=== PATIENT | male | born 1955 | race African-American/Black ===

== ENCOUNTER 2017-06-03 06:26 | Day surgery (SDC) | payer MEDICARE, OTHER ==
--- NOTE | 2017-06-02 09:32 | Opthalmology H&P ---
Ophthalmology H&P H&P Chief Complaint: decreased vision in right eye HPI Vision Affects Ability to: read, drive Past Ocular History: previous eye injury, glaucoma HPI Narrative The patient is 61 y/o with HTN, DM, CHF, Gout, Obesity and PEPE who has blurred vision in the right eye. He also has uncontrolled glaucoma due to narrow angle. He has history of trauma to the right eye which caused orbital fracture and skin laceration. Exam Visual Acuity: 20/30 BAT to 20/50 Eye Exam: normal OU: corneas, external exam, findings: anterior chambers - shallow, fundus exam - 0.4 C/D, dull foveal reflex, MAs, lens - 3+ CC, 1+ NSC Assessment/Plan Treatment Plan: cataract extraction w/ lens implant - and LRI Goals of Treatment: improvement of vision, lowering of intraocular pressure Attestation Attestation The risks and benefits of the surgery as well as alternative procedures were explained to the patient in detail. Kelly Brooks M.D. Jun 02, 2017 09:32
--- NOTE | 2017-06-02 09:37 | Pre-Procedure Note/Attestation ---
Pre-Procedure Note/Attestation Complete Prior to Procedure Planned Procedure: right Procedure Narrative: Cataract Extraction, Intra-ocular lens placement and LRI right eye Indications for Procedure Pre-Operative Diagnosis: Visually significant cataract, angle closure glaucoma, right eye Attestation I attest that I discussed the nature of the procedure; its benefits; risks and complications; and alternatives (and the risks and benefits of such alternatives ), prior to the procedure, with the patient (or the patient's legal labor service representative). I attest that, if there was a reasonable possibility of needing a blood transfusion, the patient (or the patient's legal labor service representative) was given the [facility] standardized written summary, pursuant to the Jose R [place] Blood Safety Act ([place] Health and Safety Code # 1645, as amended). I attest that I re-evaluated the patient just prior to the surgery and that there has been no change in the patient's H&P, except as documented below: The patient has had history of trauma to the right eye, there are risk of having zonulysis and capsular rupture during the procedure. The patient is obese and has CHF and obstructive sleep apnea which makes the positioning of the head difficult during the surgery, also positive vitreous pressure increases the risk of capsular bag rupture during the surgery. Kelly Brooks M.D. Jun 02, 2017 09:37
[2017-06-03] VITALS (10 sets, daily range): BP systolic 138–184; BP diastolic 77–105
[~2017-06-03] VITALS: Ht 170.2 cm; Wt 117.9 kg
[~2017-06-03 06:26] MED LIST: ALLOPURINOL300 M1 ORAL; AMLODIPINE BESY10 MG PO; APRESOLINE50 MG ORAL; ASPIRIN81 MG ORAL; ATORVASTATIN CA20 MG ORAL; AUGMENTIN 500-1 EACH ORAL; CARVEDILOL12.5 MG ORAL; CYCLOBENZAPRINE10 MG ORAL; DIOVAN160 MG PO; DOC-Q-LACE100 M1 ORAL; FERROUS SULFAT325 MG ORAL; FUROSEMIDE80 M1 ORAL; GLIPIZIDE5 MG ORAL; GLUCOTROL10 MG ORAL; HYDRALAZINE HC100 MG ORAL; HYDROCHLOROTH12.5 M2 ORAL; IBUPROFEN400 MG ORAL; IBUPROFEN600 MG PO; INDOMETHACIN75 MG ORAL; LASIX40 MG ORAL; LATANOPROST2.5 ML; LEVEMIR FL100 UNIT/1 SUBQ; LIPITOR40 MG ORAL; LOPRESSOR25 M1 ORAL; LOSARTAN POTAS100 MG ORAL; LOTENSIN20 MG ORAL; METOPROLOL SUC100 MG ORAL; METOPROLOL TAR100 M1 ORAL; METOPROLOL TART25 MG ORAL; NORCO 5-325 TA1 EACH ORAL; OMEPRAZOLE20 M3 ORAL; POTASSIUM CHLO20 ME3 PO; TIMOPTIC 0.5%1 DRO1 BOTH EYES; TRADJENTA5 MG PO; VICTOZA 2-0.6 MG/0.1 SUBQ; VITAMIN D400 INTLU ORAL; ZYLOPRIM100 MG ORAL; ZYRTEC10 MG ORAL; acetaZOLAMIDE 125mg tab ORAL ONE
[2017-06-03] MEDS ORDERED: Phenylephrine 10% Opth Soln 5ml ONE (06:50)
[2017-06-03] MEDS ORDERED: Diclofenac Sod 0.1% Op Soln ONE (06:50)
[2017-06-03] MEDS ORDERED: Vigamox Opth Soln ONE (06:50)
[2017-06-03] MEDS ORDERED: Tropicamide 1% Opth Soln ONE (06:51)
[2017-06-03] MEDS ORDERED: Akten 3.5% 1ml Btl ONE (06:51)
[2017-06-03] MEDS: Vigamox Opth Soln RIGHT EYE SCH ×3 (06:57→07:18)
[2017-06-03] MEDS: Tropicamide 1% Opth Soln RIGHT EYE SCH ×3 (06:57→07:18)
[2017-06-03] MEDS: Akten 3.5% 1ml Btl RIGHT EYE SCH ×3 (06:58→07:18)
[2017-06-03] MEDS: Phenylephrine 10% Opth Soln 5ml RIGHT EYE SCH ×3 (06:58→07:18)
[2017-06-03] MEDS: Diclofenac Sod 0.1% Op Soln RIGHT EYE SCH ×3 (06:58→07:18)
[2017-06-03] MEDS ORDERED: BSS 500ml btl ONE (07:04)
[2017-06-03] MEDS ORDERED: Lidocaine 1% MPF 10mg/ml 5ml ONE (07:05)
[2017-06-03] MEDS ORDERED: Maxitrol Opth Oint 3.5gm ONE (07:05)
[2017-06-03] MEDS ORDERED: Tetracaine 0.5% Opth Soln ONE (07:05)
[2017-06-03] MEDS ORDERED: Dexamethasone 4mg/ml vial ONE (07:05)
[2017-06-03] MEDS ORDERED: Lidocaine 2% 20mg/ml/Epi 0.005mg/ml 20ml vial ONE (07:05)
[2017-06-03] MEDS ORDERED: EPINEPHrine 1mg/1ml Amp ONE (07:06)
[2017-06-03] MEDS ORDERED: Lidocaine 4% Amp ONE (07:06)
[2017-06-03] MEDS ORDERED: Carbachol 0.01% Op Soln 1.5ml vial ONE (07:06)
[2017-06-03] MEDS ORDERED: Povidone-Iodine 5% opth solution ONE (07:06)
[2017-06-03] MEDS ORDERED: Bupivacaine 0.75% 30ml vial INJ ONE (07:07)
[2017-06-03] MEDS ORDERED: BSS 15ml BTL ONE (07:07)
[2017-06-03] MEDS ORDERED: Healon Duet Dual Pack ONE (07:07)
[2017-06-03] MEDS ORDERED: Lidocaine 1% 10mg/ml/Epi 0.005mg/ml 30ml vial INJ ONE (07:07)
[2017-06-03 07:12] LABS: BASOPHILS % (AUTO) 1.4 % (0.0-2.0); LYMPHOCYTES % (AUTO) 23.3 % (20.0-45.0); MEAN CORPUSCULAR HEMOGLOBIN 26.3 PG (27.0-31.0); MEAN CORPUSCULAR HGB CONC 30.7 G/DL (32.0-36.0); MEAN CORPUSCULAR VOLUME 86 FL (80-99); MONOCYTES % (AUTO) 13.4 % (1.0-10.0); PLATELET COUNT 166 K/UL (150-450); RED BLOOD COUNT 4.42 M/UL (4.70-6.10); RED CELL DISTRIBUTION WIDTH 15.3 % (11.6-14.8); WHITE BLOOD COUNT 5.4 K/UL (4.8-10.8)
[2017-06-03 07:26] LABS: CALCIUM 8.8 mg/dL (8.6-10.2); CREATININE 2.8 mg/dL (0.7-1.2); GLOMERULAR FILTRATION RATE 28.2 mL/min (>60)
[2017-06-03] MEDS ORDERED: Alfentanil 2ml Inj ONE (08:00)
[2017-06-03] MEDS ORDERED: Sterile Water Irrig 1000ml IRRIG ONE (08:00)
[2017-06-03] MEDS ORDERED: NS Irrig 1000ml ONE (08:00)
[2017-06-03] MEDS ORDERED: LR 1000ml ONE (08:00)
[2017-06-03] MEDS ORDERED: Midazolam 2mg/2ml Inj ONE (08:00)
[2017-06-03] MEDS ORDERED: Sodium Hyaluronate 14 mg/ml 0.85ml ONE (08:17)
--- NOTE | 2017-06-03 08:53 | Anethesia Preoperative Eval ---
Anesthesia Pre-op PMH/ROS General Date of Evaluation: Jun 03, 2017 Time of Evaluation: 08:10 Anesthesiologist: Gerry ASA Score: ASA 3 Mallampati Score Class I : Soft palate, uvula, fauces, pillars visible Class II: Soft palate, uvula, fauces visible Class III: Soft palate, base of uvula visible Class IV: Only hard plate visible Mallampati Classification: Class III Surgeon: Cecilia Diagnosis: Cataract right eye Surgical Procedure: Extraction of cataract with IOL Family History: no anesthesia problems Allergies: Coded Allergies: No Known Allergies (Verified , 01/17/12) Medications: see eMAR Past Medical History Cardiovascular: Reports: CAD, HTN, other - CHF, Denies: ND, arrhythmia, valve dz Pulmonary: Reports: COPD, Denies: PEPE, asthma, other Gastrointestinal/Genitourinary: Reports: CRI, GERD, Denies: ESRD, other Neurologic/Psychiatric: Denies: CVA, TIA, dementia, depression/anxiety, other Endocrine: Reports: DM, Denies: hypothyroidism, other, steroids HEENT: Reports: cataract (L), cataract (R) Musculoskeletal/Integumentary: Reports: OA Other: obesity PMH Narrative: HTN, DM, COPD, GERD, CHF,OA, obesity, CRI PSxH Narrative: Right TKR, let knee scope, childhood kidney surgery, eye lid surgery Anesthesia Pre-op Phys. Exam Physician Exam Last Vital Signs Date Time Temp Pulse Resp B/P Pulse Ox O2 Delivery O2 Flow Rate FiO2 06/03/17 07:09 98.1 82 18 152/80 97 Room Air Constitutional: NAD Neurologic: CN 2-12 intact Cardiovascular: RRR, no M/R/G Respiratory: CTA Gastrointestinal: S/NT/ND Airway Exam Mallampati Score: Class III MO: limited ROM: limited Teeth: intact Anesthesia Pre-op A/P Labs Hematology Test 06/03/17 07:00 White Blood Count 5.4 K/UL (4.8-10.8) Red Blood Count 4.42 M/UL (4.70-6.10) L Hemoglobin 11.6 G/DL (14.2-18.0) L Hematocrit 37.9 % (42.0-52.0) L Mean Corpuscular Volume 86 FL (80-99) Mean Corpuscular Hemoglobin 26.3 PG (27.0-31.0) L Mean Corpuscular Hemoglobin Concent 30.7 G/DL (32.0-36.0) L Red Cell Distribution Width 15.3 % (11.6-14.8) H Platelet Count 166 K/UL (150-450) Mean Platelet Volume 10.0 FL (6.5-10.1) Neutrophils (%) (Auto) 57.0 % (45.0-75.0) Lymphocytes (%) (Auto) 23.3 % (20.0-45.0) Monocytes (%) (Auto) 13.4 % (1.0-10.0) H Eosinophils (%) (Auto) 5.0 % (0.0-3.0) H Basophils (%) (Auto) 1.4 % (0.0-2.0) Chemistry Test 06/03/17 07:00 Sodium Level 142 mEQ/L (135-145) Potassium Level 4.0 mEQ/L (3.4-4.9) Chloride Level 102 mEQ/L (98-107) Carbon Dioxide Level 28 mEQ/L (20-30) Anion Gap 12 (5-15) Blood Urea Nitrogen 28 mg/dL (7-23) H Creatinine 2.8 mg/dL (0.7-1.2) H Estimat Glomerular Filtration Rate 28.2 mL/min (>60) Glucose Level 163 mg/dL (74-106) H Calcium Level 8.8 mg/dL (8.6-10.2) Studies Pre-op Studies: EKG - SR, LAHB, questionable lateral ischemia, echo - Nl LV wall motion, EF = 60% Risk Assessment & Plan Assessment: Class 3 male for cataract surgery Plan: MAC, TIVA Status Change Before Surgery: No Pre-Antibiotics Drug: None ABDIRAHMAN OROZCO M.D. Jun 03, 2017 08:53
[2017-06-03] MEDS ORDERED: LR 1000ml 1,000 ML IVLG SCH (08:54)
--- NOTE | 2017-06-03 08:54 | Immediate Post-Op Evaluation ---
Immediate Post-Op Evalulation Immediate Post-Op Evalulation Procedure: Extraction of cataract with IOL right eye Date of Evaluation: Jun 03, 2017 Time of Evaluation: 09:27 IV Fluids: 625 Blood Pressure Systolic: 168 Blood Pressure Diastolic: 94 Pulse Rate: 77 Respiratory Rate: 20 O2 Sat by Pulse Oximetry: 98 Temperature (Fahrenheit): 97.3 Pain Score (1-10): 0 Nausea: No Vomiting: No Complications No complication Patient Status: awake, patent, none Hydration Status: adequate Drug: None ABDIRAHMAN OROZCO M.D. Jun 03, 2017 08:54
[2017-06-03] MEDS ORDERED: fentaNYL 100 mcg/2 mL IV PRN (09:00)
[2017-06-03] MEDS ORDERED: Sodium Hyaluronate 10 mg/ml 0.85ml ONE (09:01)
--- NOTE | 2017-06-03 09:22 | 48 Hour Post Anesthesia Eval ---
Post Anesthesia Evaluation Procedure: Extraction of cataract with IOL right eye Date of Evaluation: Jun 03, 2017 Time of Evaluation: 09:55 Blood Pressure Systolic: 167 0: 98 Pulse Rate: 77 Respiratory Rate: 18 O2 Sat by Pulse Oximetry: 97 Airway: patent Nausea: No Vomiting: No Pain Intensity: 0 Hydration Status: adequate Cardiopulmonary Status: Stable Mental Status/LOC: patient returned to baseline Follow-up Care/Observations: As per surgery Post-Anesthesia Complications: No anesthetic complication Follow-up care needed: N/A ABDIRAHMAN OROZCO M.D. Jun 03, 2017 09:22
--- NOTE | 2017-06-03 09:23 | Discharge Summary ---
Discharge Summary Hospital Course Date of Admission 06/03/17 Date of Discharge 06/03/17 Admitting Diagnosis Visually significant cataract, right eye Angle closure right eye HPI Nasir Villa is a 61 year old male who was admitted on for Cat Rt Eye. He has angle closure glaucoma in the right eye. Procedures Complex Cataract extraction and intra-ocular lens placement, right eye Hospital Course uneventful Discharge Condition Upon Discharge: stable Discharge Disposition Patient was discharged to home with the family. Discharge Diagnoses: Discharge Instructions Discharge Instructions Follow up with: Dr. Brooks the next day in [place] office. Services Upon Discharge: other - home with the family Diet: regular Activity: light activity - No heavy lifting, training, bending For Surgical Patients Clean and Dry: surgical site Dressing Care: keep dry and clean May shower: No Contact your physician for: Kelly Neville M.D. Jun 03, 2017 09:23
--- NOTE | 2017-06-03 09:27 | Operative Note - PDOC ---
Operative Note Operative Note Date of Operation/Procedure: Jun 03, 2017 Chief Complaint: Blurred vision, uncontrolled eye presure Pre-op Diagnosis: Visually significant cataract, angle closure glaucoma, right eye Procedure: Complex cataract extraction and IOL insertion Post-op Diagnosis: The same Post-op Diagnosis: same as pre-op Surgeon: Dr. Kelly Brooks Anesthesiologist: Dr. Jose R Garrett Anesthesia: MAC Specimen: none Complications: none Condition: stable Estimated Blood Loss: none Drains: none Implant(s) used?: Yes - IOL ZCBOO +22.00 Indications for Procedure Blurred vision, difficulty driving and reading, uncontrolled eye pressure Description of Procedure See the separate complete op report. Kelly Brooks M.D. Jun 03, 2017 09:27
[2017-06-03] MEDS ORDERED: LR 1000ml 1,000 ML IV SCH (13:00)
--- NOTE | 2017-06-03 14:42 | Operative Note - PDOC ---
Opthamology Op Report Surgical Report PREPROCEDURE DIAGNOSIS: 1-Visually significant cataract, right eye 2- Angle closure glaucoma, right eye 3- Corneal astigmatism, right eye POSTPROCEDURE DIAGNOSIS: 1-Visually significant cataract, right eye 2- Angle closure glaucoma, right eye 3- Corneal astigmatism, right eye PROCEDURE: 1-Complex Phacoemulsification with Intra-ocular lens placement, right eye 2- Limbal relaxing incision, right eye SURGEON: Kelly Brooks MD ANESTHESIA: MAC, local anesthesia IMPLANT(S): WESLY IOL: ZCBOO, Power +22.0 Serial #[id number] DRAINS: None SPECIMEN: None ESTIMATED BLOOD LOSS: None BLOOD PRODUCTS ADMINISTERED: None COMPLICATIONS: None FINDINGS: Opacified lens, shallow AC INDICATIONS FOR PROCEDURE: This patient is 61 year old male with Visually significant cataract,angle closure glaucoma who presented with blurred vision and difficulty reading and driving and uncontrolled glaucoma. Past medical history is significant for Obesity, HTN, HLD, DM, Asthma, PEPE, COPD , gout, CAD, CHF and CRF. Past surgical history is significant for both knee meniscal tear. The patient is using Allopurinol, Amlodipine, Aspirin, Atrovastatin, Ceterizine, Coreg, Furosemide. HCTZ. levemir, losartan, omeprazole , Symbicort, Victoza, Lumigan and timolol. There is no known allergy. There is no history of glaucoma or any other hereditary ophthalmic disease in the family. Review of system is negative except for the blurred vision in the affected eye. VA in the operated eye 20/60, IOP20 mmHg with topical drops. Pupils are reactive with no RAPD. Slit lamp exam: cornea is clear, shallow anterior chamber, 2+ cortical cataract, 2+ nuclear sclerosis cataract, there is no psudoexfoliation present at the pupillary margin or anterior lens capsule. On funds exam cup/disc ratio is 0.4, macula shows normal foveal reflex, retina is attached. Risk, benefit and alternative to cataract surgery was explained to the patient, who agreed to proceed with the procedure. The informed consent was signed by the patient. DESCRIPTION OF PROCEDURE: The patient was seen by me along with anesthesia team in the pre op area and the surgical site was marked and confirmed. Anesthetic drops along with dilating drops was instilled in surgical eye in the pre op. The patient was then brought back to the operating lubna placed in supine position. The eye was prepped with Betadine 5% and draped in sterile manner for the ophthalmic surgery. An eyelid speculum was was placed to keep the eyelid open. Limbal relaxing incision was done about 30 degree on the vertical axis plane, in 600 micron depth using eli knife. Paracentesis wound was made superiorly and inferiorly though clear cornea near the limbus using 1.2mm side-port blade. Preservative free Lidocaine 2%mixed with epinephrine and BSS was injected into the anterior chamber through the paracentesis wound. The anterior chamber was inflated with viscoelastic (Hilon G). A keratom blade was used to make a bi- planar, shelved, clear corneal incision, starting at temporal limbus and then tunneling through clear cornea to enter the anterior chamber. A circular curvilinear continue capsulorrhexis was initiated by cystotom and continued with utrata forceps. The capsular flap then was removed. Hydrodissection and hydrodelineation was performed using BSS until the lens was freely rotatable. The lens nucleus was then removed using the phacoemulsification handpiece. The residual cortex was removed with the bimanual irrigation/aspiration handpieces. The capsular bag and anterior chamber were inflated with viscoelastic, and the IOL was inserted into the capsular bag. Using irrigation/Aspiration handpiece on the aspiration mode, Healon was removed from the anterior and posterior chamber. Main wound and paracentesis wound was hydrated by BSS. The speculum was removed. Vigamox drops and Sterile antibiotic/steroid ointment was applied to the eye. A cotton patch and clear shield were placed over the operative eye. The patient was transferred to the recovery room in stable condition. MD Esther Mujica [id number] Kelly Brooks M.D. Jun 03, 2017 14:42
--- NOTE | 2017-06-05 15:45 | Cardiology Report ---
APPROVED REPORT EKG Measurement Heart [id number] Normal sinus rhythm Left axis deviation T wave abnormality, consider lateral ischemia Abnormal ECG
== END 2017-06-03 10:05 | disposition home or self-care (01) ==
LOC: SUR 06:26
DX: H25.11 Age-related nuclear cataract, right eye (principal); H25.011 Cortical age-related cataract, right eye; H52.201 Unspecified astigmatism, right eye; H40.20X0 Unspecified primary angle-closure glaucoma, stage unspecified; I12.9 Hypertensive chronic kidney disease with stage 1 through stage 4 chronic kidney disease, or unspecified chronic kidney disease; E11.22 Type 2 diabetes mellitus with diabetic chronic kidney disease; N18.9 Chronic kidney disease, unspecified; Z79.4 Long term (current) use of insulin; I25.10 Atherosclerotic heart disease of native coronary artery without angina pectoris; I50.9 Heart failure, unspecified; J44.9 Chronic obstructive pulmonary disease, unspecified; J45.909 Unspecified asthma, uncomplicated; M10.9 Gout, unspecified; E66.01 Morbid (severe) obesity due to excess calories; Z68.41 Body mass index [BMI] 40.0-44.9, adult; G47.33 Obstructive sleep apnea (adult) (pediatric); M17.9 Osteoarthritis of knee, unspecified; E78.5 Hyperlipidemia, unspecified; Z79.82 Long term (current) use of aspirin; Z96.651 Presence of right artificial knee joint
CPT/HCPCS: 36415; 66984; 66999; 80048; 82962; 85025; 93005; J0171; J0360; J2250; J3490; J7120; V2632; 94003; 94150

== ENCOUNTER 2017-06-10 06:22 | Day surgery (SDC) | payer MEDICARE, OTHER ==
--- NOTE | 2017-06-09 07:57 | Opthalmology H&P ---
Ophthalmology H&P H&P Chief Complaint: decreased vision in left eye, poorly controlled glaucoma HPI Vision Affects Ability to: focus/use eyes together Past Ocular History: glaucoma HPI Narrative The patient has angle closure glaucoma with uncontrolled IOP in the left eye. He has had cataract surgery in the right eye and hard to focus with both eyes due to anisokonia. Exam Visual Acuity: 20/25 BAT to 20/40 Eye Exam: normal OU: external exam, corneas, findings: anterior chambers - Deep OD, Shallow OS, lens - PCIOL od, 2+ CC, 1+ NSC, fundus exam - 0.5 C/D, fine macular drusen Assessment/Plan Treatment Plan: cataract extraction w/ lens implant Goals of Treatment: improvement of vision, lowering of intraocular pressure Attestation Attestation The risks and benefits of the surgery as well as alternative procedures were explained to the patient in detail. Kelly Brooks M.D. Jun 09, 2017 07:57
--- NOTE | 2017-06-09 08:05 | Pre-Procedure Note/Attestation ---
Pre-Procedure Note/Attestation Complete Prior to Procedure Planned Procedure: left Procedure Narrative: Cataract extraction and intra-ocular lens placement, left eye Indications for Procedure Pre-Operative Diagnosis: Visually significant cataract and angle closure glaucoma left eye Attestation I attest that I discussed the nature of the procedure; its benefits; risks and complications; and alternatives (and the risks and benefits of such alternatives ), prior to the procedure, with the patient (or the patient's legal business center representative). I attest that, if there was a reasonable possibility of needing a blood transfusion, the patient (or the patient's legal business center representative) was given the [facility] standardized written summary, pursuant to the [place] Blood Safety Act ([place] Health and Safety Code # 1645, as amended). I attest that I re-evaluated the patient just prior to the surgery and that there has been no change in the patient's H&P, except as documented below: The patient has shallow AC, positive posterior pressure from the short neck and obesity associated with intermittent shortness of breath from Asthma and CHF. The risk of vitreous loss is more than age matched patients. Kelly Brooks M.D. Jun 09, 2017 08:05
[2017-06-10] VITALS (8 sets, daily range): BP systolic 142–173; BP diastolic 75–96
[~2017-06-10] VITALS: Ht 170.2 cm; Wt 117.9 kg
[2017-06-10] MEDS: Diclofenac Sod 0.1% Op Soln LEFT EYE SCH ×3 (06:00→06:10)
[~2017-06-10 06:22] MED LIST changes: +Akten 3.5% 1ml Btl ONE; +Diclofenac Sod 0.1% Op Soln ONE; +Phenylephrine 10% Opth Soln 5ml ONE; +Tropicamide 1% Opth Soln ONE; +Vigamox Opth Soln ONE
[2017-06-10] MEDS: Vigamox Opth Soln LEFT EYE SCH ×3 (06:39→06:56)
[2017-06-10] MEDS: Akten 3.5% 1ml Btl LEFT EYE SCH ×3 (06:39→06:55)
[2017-06-10] MEDS: Tropicamide 1% Opth Soln LEFT EYE SCH ×3 (06:39→06:55)
[2017-06-10] MEDS: Phenylephrine 10% Opth Soln 5ml LEFT EYE SCH ×3 (06:39→06:55)
[2017-06-10] MEDS ORDERED: Lidocaine 1% MPF 10mg/ml 5ml ONE (07:00)
[2017-06-10] MEDS ORDERED: Fluorescein Strips ONE (07:00)
[2017-06-10] MEDS ORDERED: BSS 500ml btl ONE (07:00)
[2017-06-10] MEDS ORDERED: Lidocaine 2% 20mg/ml/Epi 0.005mg/ml 20ml vial ONE (07:01)
[2017-06-10] MEDS ORDERED: Dexamethasone 4mg/ml vial ONE (07:01)
[2017-06-10] MEDS ORDERED: Tetracaine 0.5% Opth Soln ONE (07:01)
[2017-06-10] MEDS ORDERED: Maxitrol Opth Oint 3.5gm ONE (07:01)
[2017-06-10] MEDS ORDERED: Lidocaine 4% Amp ONE (07:01)
[2017-06-10] MEDS ORDERED: Povidone-Iodine 5% opth solution ONE (07:01)
[2017-06-10] MEDS ORDERED: Carbachol 0.01% Op Soln 1.5ml vial ONE (07:01)
[2017-06-10] MEDS ORDERED: Healon Duet Dual Pack ONE (07:02)
[2017-06-10] MEDS ORDERED: EPINEPHrine 1mg/1ml Amp ONE (07:02)
[2017-06-10] MEDS ORDERED: Bupivacaine 0.75% 30ml vial INJ ONE (07:02)
[2017-06-10] MEDS ORDERED: Lidocaine 1% 10mg/ml/Epi 0.005mg/ml 30ml vial INJ ONE (07:02)
[2017-06-10] MEDS ORDERED: BSS 15ml BTL ONE (07:02)
[2017-06-10] MEDS ORDERED: fentaNYL 100 mcg/2 mL IV PRN (08:00)
[2017-06-10] MEDS ORDERED: LR 1000ml ONE (08:00)
[2017-06-10] MEDS ORDERED: LR 1000ml 1,000 ML IVLG SCH (08:00)
[2017-06-10] MEDS ORDERED: NS Irrig 1000ml ONE (08:00)
[2017-06-10] MEDS ORDERED: DiphenhydrAMINE 50mg/ml Inj IVP PRN (08:00)
[2017-06-10] MEDS ORDERED: Sterile Water Irrig 1000ml IRRIG ONE (08:00)
[2017-06-10] MEDS ORDERED: Midazolam 2mg/2ml Inj ONE (08:00)
--- NOTE | 2017-06-10 08:04 | Anethesia Preoperative Eval ---
Anesthesia Pre-op PMH/ROS General Date of Evaluation: Jun 10, 2017 Time of Evaluation: 07:20 Anesthesiologist: Gerry ASA Score: ASA 3 Mallampati Score Class I : Soft palate, uvula, fauces, pillars visible Class II: Soft palate, uvula, fauces visible Class III: Soft palate, base of uvula visible Class IV: Only hard plate visible Mallampati Classification: Class III Surgeon: Cecilia Diagnosis: Cataract left eye Surgical Procedure: Extraction of cataract with IOL left eye Family History: no anesthesia problems Allergies: Coded Allergies: No Known Allergies (Verified , 01/17/12) Medications: see eMAR Past Medical History Cardiovascular: Reports: HTN Pulmonary: Reports: COPD, PEPE Endocrine: Reports: DM HEENT: Reports: cataract (L), cataract (R) Other: obesity PMH Narrative: HTN, DM, PEPE, obesity, COPD, CHF PSxH Narrative: Cataract right eye Anesthesia Pre-op Phys. Exam Physician Exam Last Vital Signs Date Time Temp Pulse Resp B/P (MAP) Pulse Ox O2 Delivery O2 Flow Rate FiO2 06/10/17 06:43 97.9 85 18 142/79 98 Room Air Constitutional: NAD Neurologic: CN 2-12 intact Cardiovascular: RRR, no M/R/G Respiratory: CTA Gastrointestinal: S/NT/ND Airway Exam Mallampati Score: Class III MO: full ROM: full Teeth: intact Anesthesia Pre-op A/P Risk Assessment & Plan Assessment: Class 3 male for extraction of cataract with IOL left eye Plan: MAC Status Change Before Surgery: No Pre-Antibiotics Drug: None ABDIRAHMAN OROZCO M.D. Jun 10, 2017 08:04
--- NOTE | 2017-06-10 08:05 | Immediate Post-Op Evaluation ---
Immediate Post-Op Evalulation Immediate Post-Op Evalulation Procedure: EXtraction of cataract with IOL left eye Date of Evaluation: Jun 10, 2017 Time of Evaluation: 08:40 IV Fluids: 600 Blood Pressure Systolic: 174 Blood Pressure Diastolic: 103 Pulse Rate: 77 Respiratory Rate: 26 O2 Sat by Pulse Oximetry: 98 Temperature (Fahrenheit): 97.4 Pain Score (1-10): 0 Nausea: No Vomiting: No Complications No complication Patient Status: awake, patent, none Hydration Status: adequate Drug: None ABDIRAHMAN OROZCO M.D. Jun 10, 2017 08:05
--- NOTE | 2017-06-10 08:35 | 48 Hour Post Anesthesia Eval ---
Post Anesthesia Evaluation Procedure: EXtraction of cataract with IOL left eye Date of Evaluation: Jun 10, 2017 Time of Evaluation: 09:00 Blood Pressure Systolic: 152 0: 88 Pulse Rate: 79 Respiratory Rate: 22 O2 Sat by Pulse Oximetry: 97 Airway: patent Nausea: No Vomiting: No Pain Intensity: 0 Hydration Status: adequate Cardiopulmonary Status: Stable Mental Status/LOC: patient returned to baseline Follow-up Care/Observations: As per surgery Post-Anesthesia Complications: No anesthetic complication Follow-up care needed: N/A ABDIRAHMAN OROZCO M.D. Jun 10, 2017 08:35
--- NOTE | 2017-06-10 08:39 | Operative Note - PDOC ---
Operative Note Operative Note Date of Operation/Procedure: Jun 10, 2017 Chief Complaint: blurred vision, narrow angle glaucoma, left eye Pre-op Diagnosis: Visually significant cataract and angle closure glaucoma left eye Procedure: Complex cataract extraction and intra-ocular lens placement Post-op Diagnosis: The same Post-op Diagnosis: same as pre-op Operative Findings: consistent w/pre-op dx studies Surgeon: Dr. Kelly Brooks Anesthesiologist: Dr. Amezquita Anesthesia: MAC Specimen: none Complications: none Condition: stable Estimated Blood Loss: none Drains: none Implant(s) used?: Yes - ZCBOO IOL Indications for Procedure Angle closure glaucoma and visually significant cataract, left eye Description of Procedure See the separate note Kelly Brooks M.D. Jun 10, 2017 08:39
--- NOTE | 2017-06-10 08:43 | Discharge Summary ---
Discharge Summary Hospital Course Date of Admission 06/10/17 Date of Discharge 06/10/17 Admitting Diagnosis Visually significant cataract, angle closure glaucoma HPI Nasir Villa is a 61 year old male who was admitted on 06/10/17 for angle closure glaucoma and Cat Lt Eye Discharge Condition Upon Discharge: stable Discharge Disposition Patient was discharged to home with a friend Discharge Diagnoses: Discharge Instructions Discharge Instructions Follow up with: Dr. Brooks in the office tomorrow Call MD/Return to Hospital if: severe pain Services Upon Discharge: other - home Diet: regular Activity: light activity - No straining, No heavy lifting, no bending Follow Up Orders Keep the patch over the left eye until tomorrow For Surgical Patients Dressing Care: keep dry and clean May shower: No Contact your physician for: Kelly Neville M.D. Jun 10, 2017 08:43
--- NOTE | 2017-06-10 09:58 | Operative Note - PDOC ---
Opthamology Op Report Surgical Report PREPROCEDURE DIAGNOSIS: 1-Visually significant cataract, left eye 2-Angle closure glaucoma POSTPROCEDURE DIAGNOSIS: 1-Visually significant cataract, left eye 2-Angle closure glaucoma PROCEDURE: Complex Phacoemulsification with Intra-ocular lens placement, left eye SURGEON: Kelly Brooks MD ANESTHESIA: MAC, local anesthesia IMPLANT(S): WESLY IOL: ZCBOO, Power +23.00 Serial #[id number] DRAINS: None SPECIMEN: None ESTIMATED BLOOD LOSS: None BLOOD PRODUCTS ADMINISTERED: None COMPLICATIONS: None FINDINGS: Opacified lens, shallow AC, posterior pressure INDICATIONS FOR PROCEDURE: This patient is 61 year old male with angle closure glaucoma and Visually significant cataract, who presented with uncontrolled glaucoma, blurred vision and difficulty reading and driving. Past medical history is significant for Obesity,HTN, HLD, DM, PEPE, Asthma, Gout , CAD, CHF and CRF. Past surgical history is significant for Cataract surgery right eye, both knee meniscal tear. The patient is using Allopurinol,Amlodipine , Aspirin, Atrovastatin, Ceterizine, Coreg, Furesemide, HCTZ, Levemir, Losartan , Omeprazole, Symbicort, Victoza, Lumigan and Timolol. There is no known allergy. There is no history of glaucoma or any other hereditary ophthalmic disease in the family. Review of system is negative except for the blurred vision in the affected eye. Corrected VA in the operated eye 20/25, BAT to 20/40 , IOP20 mmHg with medication. Pupils are reactive with no RAPD. Slit lamp exam : cornea is clear, shallow anterior chamber, 2+ cortical cataract, 1+ nuclear sclerosis cataract, there is no psudoexfoliation present at the pupillary margin or anterior lens capsule. On funds exam cup/disc ratio is 0.6, macula shows dull foveal reflex, retina is attached. Risk, benefit and alternative to cataract surgery was explained to the patient, who agreed to proceed with the procedure. The informed consent was signed by the patient. DESCRIPTION OF PROCEDURE: The patient was seen by me along with anesthesia team in the pre op area and the surgical site was marked and confirmed. Anesthetic drops along with dilating drops was instilled in surgical eye in the pre op. The patient was then brought back to the operating lubna placed in supine position. The eye was prepped with Betadine 5% and draped in sterile manner for the ophthalmic surgery. An eyelid speculum was was placed to keep the eyelid open. Paracentesis wound was made superiorly and inferiorly though clear cornea near the limbus using 1.2mm side-port blade. Preservative free Lidocaine 2% mixed with BSS and epinephrine was injected into the anterior chamber through the paracentesis wound. The anterior chamber was inflated with viscoelastic (Heal[place] GV) because of shallow AC and posterior positive pressure (given the SOB and short neck) . A keratom blade was used to make a bi-planar, shelved, clear corneal incision, starting at temporal limbus and then tunneling through clear cornea to enter the anterior chamber. A circular curvilinear continue capsulorrhexis was initiated by cystotom and continued with utrata forceps. The capsular flap then was removed. Hydrodissection and hydrodelineation was performed using BSS until the lens was freely rotatable. The lens nucleus was then removed using the phacoemulsification handpiece. The residual cortex was removed with the bimanual irrigation/aspiration handpieces. The capsular bag and anterior chamber were inflated with viscoelastic, and the IOL was inserted into the capsular bag. Using irrigation/Aspiration handpiece on the aspiration mode, Healon was removed from the anterior and posterior chamber. Main wound and paracentesis wound was hydrated by BSS. The speculum was removed. Vigamox drops and Sterile antibiotic/steroid ointment was applied to the eye. A cotton patch and clear shield were placed over the operative eye. The patient was transferred to the recovery room in stable condition. Kelly Brooks MD [id number] Kelly Brooks M.D. Jun 10, 2017 09:58
[2017-06-10] MEDS ORDERED: LR 1000ml 1,000 ML IV SCH (10:00)
--- NOTE | 2017-06-10 16:30 | Pre-op HX & Phy Repo 2 SIG ---
DATE OF ADMISSION: 06/10/2017 REASON FOR EVALUATION: I was asked by Dr. Kelly Brooks to see this 61-year-old male, who is going for elective surgery of the left eye. The patient has a cataract left eye. Please see Dr. Brooks History and Physical. The patient was examined. Chart was reviewed. PAST MEDICAL HISTORY/REVIEW OF SYSTEMS: Remarkable for hypertension, history of insulin-dependent diabetes mellitus, congestive heart failure, and obesity. Denies history of heart attack. No history of bronchial asthma or COPD. No lung problem. No heart attack. No stroke or seizures. Denies history of thyroid problem. The patient has history of anemia and renal insufficiency. The patient has no history of ulcer disease. History of hepatitis B. The patient has degenerative joint disease, particularly knee and surgery on both knee cartilage, x5, also surgery on the right eye, trauma. FAMILY HISTORY: Mother has a heart attack. Father on dialysis for renal failure. ALLERGIES: Not known. PRESENT MEDICATIONS: Include long acting insulin 14 units at this time, Lasix, vitamin D, calcium, potassium, Tradjenta, amlodipine, allopurinol, atorvastatin, hydralazine, DSS, Cozaar, and omeprazole. SOCIAL HISTORY: The patient denies history of smoke or alcohol. No street drugs. PHYSICAL EXAMINATION: GENERAL: The patient is alert. Morbidly obese. BMI is 40.5. VITAL SIGNS: Blood pressure 142/79, temperature 97.9 degrees, pulse 85, and respiration 18. SKIN: No rashes. No new scar. LYMPH NODES: Not enlarged. HEENT: Head, normocephalic. Ears, clear. No discharge. Eyes, full description per Dr. Brooks. Mouth, clear and moist. No ulcer or discharge. No dentures. NECK: Supple. No jugular vein distention. Carotids artery +2. Trachea midline. CHEST: Mild kyphosis. LUNGS: Clear. No rales or rhonchi. HEART: Sinus rhythm. Sound distant. No ectopy. No murmur. ABDOMEN: Soft and obese. Liver and spleen not enlarged. No rebound. EXTREMITIES: No peripheral edema. No varicose veins. EXTREMITIES: No peripheral edema. No calf tenderness. No varicose veins. NEUROLOGIC: No tremor. No nystagmus. LABORATORY DATA: Fast blood sugar today 144. Sodium 142, potassium 4.0, BUN 28, and creatinine 2.3. Estimated GFR 28.2. CBC, white blood cells 5.4, hemoglobin 10.3, and hematocrit 37.9. ECG, normal sinus rhythm. No ectopy. IMPRESSION: 1. Cataract, left eye. 2. Insulin-dependent diabetes mellitus, controlled. 3. Hypertension. 4. Chronic kidney disease, stage 2, 3, and 4. 5. Morbid obesity. BMI is 40.5. 6. Congestive heart failure, controlled. 7. Anemia, secondary to chronic kidney disease. 8. Gout. PLAN: Cataract extraction, left eye, which intraocular lens implant per Dr. Brooks. CONCLUSION: The patient is a 61-year-old has multiple medical problems include insulin-dependent diabetes, hypertension, and chronic renal insufficiency complicated with obesity and anemia. The patient has also gout, controlled. The patient's vital signs stable. EKG was normal. The patient's condition optimized for surgery. She did not eat or drink from last night Thank you very much, Dr. Brooks, for privilege to participate presurgical care of this patient. Maria Dolores Douglas M.D. DR: CANDY JOB#: [id number] CC:
== END 2017-06-10 11:10 | disposition home or self-care (01) ==
LOC: SUR 06:22
DX: H25.12 Age-related nuclear cataract, left eye (principal); H25.012 Cortical age-related cataract, left eye; H40.20X0 Unspecified primary angle-closure glaucoma, stage unspecified; H57.02 Anisocoria; I12.9 Hypertensive chronic kidney disease with stage 1 through stage 4 chronic kidney disease, or unspecified chronic kidney disease; E10.22 Type 1 diabetes mellitus with diabetic chronic kidney disease; N18.4 Chronic kidney disease, stage 4 (severe); Z79.4 Long term (current) use of insulin; D63.1 Anemia in chronic kidney disease; E66.01 Morbid (severe) obesity due to excess calories; Z68.41 Body mass index [BMI] 40.0-44.9, adult; I50.9 Heart failure, unspecified; J44.9 Chronic obstructive pulmonary disease, unspecified; M10.9 Gout, unspecified; G47.33 Obstructive sleep apnea (adult) (pediatric); M19.90 Unspecified osteoarthritis, unspecified site; Z86.19 Personal history of other infectious and parasitic diseases; Z79.899 Other long term (current) drug therapy
CPT/HCPCS: 66982; 82962; J0171; J0360; J2250; J3490; J7120; V2632; 94003; 94150

== ENCOUNTER 2017-10-31 12:56 | Inpatient (IN) | payer MEDICARE, OTHER ==
[~2017-10-31] VITALS: Ht 170.2 cm; Wt 134.3 kg
[~2017-10-31 12:56] MED LIST changes: -Akten 3.5% 1ml Btl ONE; -Diclofenac Sod 0.1% Op Soln ONE; -Phenylephrine 10% Opth Soln 5ml ONE; -Tropicamide 1% Opth Soln ONE; -Vigamox Opth Soln ONE; -acetaZOLAMIDE 125mg tab ORAL ONE
[2017-10-31 13:20] VITALS: BP 142/91
[2017-10-31] MEDS ORDERED: Aspirin Baby 81mg ORAL ONE (13:30)
[2017-10-31] MEDS ORDERED: Acetaminophen 500mg (ES) tab ORAL ONE (13:30)
--- NOTE | 2017-10-31 13:38 | Emergency Room Report ---
History of Present Illness General Chief Complaint: Hypertension Source: Patient Present Illness HPI 62-year-old male, history of hypertension, CHF p/w chest pain for 2 days. Chest pain started while while he was driving. Localized to substernal area, no radiation to back, states it radiates to her left arm, however pain is worse with any arm movement, sharp in nature, gradual in onset, mult episodes. Occurs both at rest and on exertion. + SOB. Denies palpitations, diaphoresis, n/ v. Denies fever, chills, cough, abd pain. Denies trauma. Last stress test was several years ago which was negative Patient has never had a cardiac catheterization. Allergies: Coded Allergies: No Known Allergies (Verified , 01/17/12) Patient History Past Medical History: see triage record Past Surgical History: none Pertinent Family History: none Reviewed Nursing Documentation: PMH: Agreed, PSxH: Agreed Nursing Documentation-PMH Past Medical History: No History, Except For Hx Cardiac Problems: Yes - CHF Hx Hypertension: Yes Hx Pacemaker: No Hx COPD: Yes Hx Diabetes: Yes Hx Cancer: No Hx Gastrointestinal Problems: Yes Hx Dialysis: No History Of Psychiatric Problem: No Hx Neurological Problems: No Hx Cerebrovascular Accident: No Hx Seizures: No Hx Headaches: Yes Review of Systems All Other Systems: negative except mentioned in HPI Physical Exam Vital Signs Date Time Temp Pulse Resp B/P (MAP) Pulse Ox O2 Delivery O2 Flow Rate FiO2 10/31/17 13:02 98.4 94 16 179/106 99 Room Air Sp02 EP Interpretation: reviewed, normal General Appearance: alert, GCS 15, non-toxic, mild distress Head: normocephalic, atraumatic Eyes: bilateral eye normal inspection, bilateral eye PERRL, bilateral eye EOMI ENT: normal ENT inspection, normal pharynx, normal voice, moist mucus membranes Neck: normal inspection, full range of motion, supple Respiratory: normal inspection, lungs clear, normal breath sounds, no respiratory distress, no retraction, no wheezing, speaking full sentences, chest symmetrical Cardiovascular #1: normal inspection, regular rate, rhythm, no edema, normal capillary refill Cardiovascular #2: 2+ radial (R), 2+ radial (L) Gastrointestinal: normal inspection, non tender, soft, non-distended, no guarding Genitourinary: no CVA tenderness Musculoskeletal: other - Left shoulder tenderness, no gross bony deformities, has full range of motion, left sided chest wall tenderness Neurologic: normal inspection, alert, oriented x3, responsive, motor strength/ tone normal, sensory intact, normal gait, speech normal Psychiatric: normal inspection, judgement/insight normal, memory normal Skin: normal inspection, normal color, no rash, warm/dry, well hydrated, normal turgor Medical Decision Making Diagnostic Impression: Primary Impression: ACS (acute coronary syndrome) Additional Impression: Renal insufficiency ER Course 62-year-old male with chest pain and left shoulder pain DDX: ACS vs. CHF vs. pneumonia vs. gastritis/GERD vs. pneumothorax PE on differential however at this time there are other more likely diagnoses. Versus musculoskeletal pain Plan: IV access, obtain labs including troponin, EKG, CXR ASA 162, took 81 mg at home Anticipate admission ER course: Patient was treated with ASA. Patient has remained on a monitor, HD stable, chest pain improved. Disposition: Patient requires admission for chest pain. D/W hospitalist Dr Strauss Please note that this Emergency Department Report was dictated using [employer] technology software, occasionally this can lead to erroneous entry secondary to interpretation by the dictation equipment. EKG Diagnostic Results EP Interpretation: Yes Rate: normal Rhythm: NSR ST Segments: T-wave inversion noted in V5 and V6 ASA given to patient: Yes Rhythm Strip EP Interpretation: Yes Rate: 86 Rhythm: NSR, no PVCs, no ectopy Chest X-ray * CXR: Ordered: Yes 1 view Indication: Chest pain EP interpretation: Yes Interpretation: No consolidation, no effusion, no PTX, no acute cardiopulmonary disease Impression: No acute disease Electronically signed by Lory Cuadra MD Laboratory Tests Test 10/31/17 13:40 White Blood Count 7.6 K/UL (4.8-10.8) Red Blood Count 4.75 M/UL (4.70-6.10) Hemoglobin 12.2 G/DL (14.2-18.0) L Hematocrit 40.2 % (42.0-52.0) L Mean Corpuscular Volume 85 FL (80-99) Mean Corpuscular Hemoglobin 25.6 PG (27.0-31.0) L Mean Corpuscular Hemoglobin Concent 30.2 G/DL (32.0-36.0) L Red Cell Distribution Width 15.6 % (11.6-14.8) H Platelet Count 181 K/UL (150-450) Mean Platelet Volume 9.6 FL (6.5-10.1) Neutrophils (%) (Auto) 73.4 % (45.0-75.0) Lymphocytes (%) (Auto) 14.3 % (20.0-45.0) L Monocytes (%) (Auto) 8.1 % (1.0-10.0) Eosinophils (%) (Auto) 2.5 % (0.0-3.0) Basophils (%) (Auto) 1.6 % (0.0-2.0) Sodium Level 141 MMOL/L (136-145) Potassium Level 3.7 MMOL/L (3.5-5.1) Chloride Level 105 MMOL/L (98-107) Carbon Dioxide Level 26 MMOL/L (21-32) Anion Gap 10 mmol/L (5-15) Blood Urea Nitrogen 25 mg/dL (7-18) H Creatinine 2.9 MG/DL (0.55-1.30) H Estimate Glomerular Filtration Rate 27.0 mL/min (>60) Glucose Level 136 MG/DL (74-106) H Calcium Level 8.8 MG/DL (8.5-10.1) Total Bilirubin 0.6 MG/DL (0.2-1.0) Aspartate Amino Transferase (AST) 25 U/L (15-37) Alanine Aminotransferase (ALT) 16 U/L (12-78) Alkaline Phosphatase 89 U/L (46-116) Troponin I 0.010 ng/mL (0.000-0.056) Pro-B-Type Natriuretic Peptide 211 pg/mL (0-125) H Total Protein 7.3 G/DL (6.4-8.2) Albumin 3.3 G/DL (3.4-5.0) L Globulin 4.0 g/dL Albumin/Globulin Ratio 0.8 (1.0-2.7) L Last Vital Signs Date Time Temp Pulse Resp B/P (MAP) Pulse Ox O2 Delivery O2 Flow Rate FiO2 10/31/17 13:02 98.4 94 16 179/106 99 Room Air Disposition: ADMITTED INPATIENT Condition: Serious Referrals: Primo Strauss MD (PCP) Lory Cuadra M.D. Oct 31, 2017 13:38
[2017-10-31 14:22] LABS: BASOPHILS % (AUTO) 1.6 % (0.0-2.0); EOSINOPHILS % (AUTO) 2.5 % (0.0-3.0); HEMATOCRIT 40.2 % (42.0-52.0); HEMOGLOBIN 12.2 G/DL (14.2-18.0); LYMPHOCYTES % (AUTO) 14.3 % (20.0-45.0); MEAN CORPUSCULAR VOLUME 85 FL (80-99); MONOCYTES % (AUTO) 8.1 % (1.0-10.0); NEUTROPHILS % (AUTO) 73.4 % (45.0-75.0); PLATELET COUNT 181 K/UL (150-450); RED BLOOD COUNT 4.75 M/UL (4.70-6.10); RED CELL DISTRIBUTION WIDTH 15.6 % (11.6-14.8); WHITE BLOOD COUNT 7.6 K/UL (4.8-10.8)
[2017-10-31 14:34] LABS: ANION GAP 10 mmol/L (5-15); BLOOD UREA NITROGEN 25 mg/dL (7-18); CALCIUM 8.8 MG/DL (8.5-10.1); CARBON DIOXIDE 26 MMOL/L (21-32); CHLORIDE 105 MMOL/L (98-107); CREATININE 2.9 MG/DL (0.55-1.30); POTASSIUM 3.7 MMOL/L (3.5-5.1); SODIUM 141 MMOL/L (136-145)
[2017-10-31 14:45] LABS: ALANINE AMINOTRANSFERASE 16 U/L (12-78); ALBUMIN 3.3 G/DL (3.4-5.0); ALBUMIN/GLOBULIN RATIO 0.8 (1.0-2.7); ALKALINE PHOSPHATASE 89 U/L (46-116); ASPARTATE AMINO TRANSFERASE 25 U/L (15-37); BILIRUBIN,TOTAL 0.6 MG/DL (0.2-1.0)
[2017-10-31 15:20] VITALS: BP 144/92
[2017-10-31 15:25] LABS: APPEARANCE,URINE CLEAR; BILIRUBIN, URINE NEGATIVE (NEGATIVE); COLOR,URINE PALE YELLOW; GLUCOSE, URINE (UA) NEGATIVE (NEGATIVE); KETONES,URINE NEGATIVE (NEGATIVE); LEUKOCYTE ESTERASE ,URINE NEGATIVE (NEGATIVE); NITRITE,URINE NEGATIVE (NEGATIVE); PH,URINE 6 (4.5-8.0); PROTEIN,URINE 3+ (NEGATIVE); UROBILINOGEN,URINE NORMAL MG/DL (0.0-1.0)
[2017-10-31] MEDS ORDERED: dilTIAZem HCl 25mg/5ml Inj IV PRN (16:15)
[2017-10-31] MEDS ORDERED: Albuterol/Ipratropium 3ml neb HHN PRN (16:15)
[2017-10-31] MEDS ORDERED: Enalaprilat 2.5mg/2ml Inj IV PRN (16:15)
[2017-10-31] MEDS ORDERED: Ketorolac 30mg Inj IV PRN (16:15)
[2017-10-31] MEDS ORDERED: Miralax 17gm pkt ORAL PRN (16:15)
[2017-10-31] MEDS ORDERED: Nitroglycerin Subl 0.4mg tab SL PRN (16:30)
[2017-10-31 17:20] VITALS: BP 140/82
[2017-10-31 19:00] VITALS: BP 153/72
[2017-10-31] MEDS ORDERED: HYDRALAZINE HC100 MG ORAL (19:12)
[2017-10-31] MEDS ORDERED: ATORVASTATIN CA20 MG ORAL (19:15)
[2017-10-31] MEDS ORDERED: CARVEDILOL25 MG ORAL (19:15)
[2017-10-31] MEDS ORDERED: DOCUSATE SODIU100 MG ORAL (19:17)
[2017-10-31] MEDS ORDERED: TRADJENTA5 MG PO (19:17)
[2017-10-31] MEDS ORDERED: POTASSIUM CHLO20 ME1 ORAL (19:23)
[2017-10-31] MEDS ORDERED: TIMOPTIC 0.5%1 DRO1 BOTH EYES (19:23)
[2017-10-31] MEDS ORDERED: LUMIGAN2.5 ML BOTH EYES (19:23)
[2017-10-31] MEDS ORDERED: LEVEMIR FL100 UNIT/2 SQ (19:29)
[2017-10-31] MEDS ORDERED: ONE DAILY FOR1 EAC2 ORAL (19:29)
[2017-10-31] MEDS ORDERED: ATROVENT HFA12.9 GM IH (19:31)
[2017-10-31] MEDS ORDERED: VICTOZA 2-0.6 MG/0.1 SUBQ (19:33)
[2017-10-31] MEDS ORDERED: ZEGERID 40 MG1 EACH ORAL (19:36)
[2017-10-31] MEDS ORDERED: VITAMIN D1000 UNI1 ORAL (19:40)
[2017-10-31 21:00] VITALS: BP 167/89
[2017-10-31] MEDS: NovoLOG Insulin Flexpen SUBQ SCH ×2 (23:00→23:02)
[2017-10-31] MEDS: Heparin 5000 units/ml inj SUBQ SCH (23:15)
[2017-10-31] MEDS: Morphine Sulfate 2mg/ml Inj IVP PRN (23:16)
[2017-11-01] VITALS: BP 161/90
[2017-11-01 04:00] VITALS: BP 150/82
[2017-11-01] MEDS: NovoLOG Insulin Flexpen SUBQ SCH ×4 (06:30→21:14)
[2017-11-01] MEDS: Heparin 5000 units/ml inj SUBQ SCH ×3 (06:59→21:15)
[2017-11-01] MEDS: Aspirin Baby 81mg ORAL SCH (08:12)
[2017-11-01 08:14] VITALS: BP 128/64
[2017-11-01 08:19] LABS: CHOLESTEROL 137 MG/DL (< 200); HDL CHOLESTEROL 55 MG/DL (40-60); TRIGLYCERIDES 83 MG/DL (30-150)
[2017-11-01 08:25] LABS: BASOPHILS % (AUTO) 1.1 % (0.0-2.0); EOSINOPHILS % (AUTO) 3.2 % (0.0-3.0); HEMATOCRIT 38.2 % (42.0-52.0); HEMOGLOBIN 11.6 G/DL (14.2-18.0); LYMPHOCYTES % (AUTO) 19.4 % (20.0-45.0); MEAN CORPUSCULAR VOLUME 84 FL (80-99); NEUTROPHILS % (AUTO) 64.3 % (45.0-75.0); PLATELET COUNT 176 K/UL (150-450); RED BLOOD COUNT 4.52 M/UL (4.70-6.10); RED CELL DISTRIBUTION WIDTH 15.4 % (11.6-14.8); WHITE BLOOD COUNT 5.9 K/UL (4.8-10.8)
--- NOTE | 2017-11-01 08:30 | Diagnostic Imaging Report ---
Indication: Pain Technique: XRAY Chest 1v Comparison: 12/01/2015 Findings: Stable cardiomegaly. There is mild interstitial prominence/edema. There is no definite focal airspace consolidation. No pleural effusion or pneumothorax. Previously seen calcified granuloma in the left midlung is not as well appreciated on today's study. No acute osseous abnormality seen. Impression: Cardiomegaly and question mild CHF/interstitial edema. Correlate clinically. No definite focal airspace consolidation. Study obtained via the emergency department however patient admitted to the hospital at time of dictation of final report..
[2017-11-01] MEDS: HydrALAZINE 50mg tab ORAL SCH ×2 (09:14→21:12)
[2017-11-01] MEDS: Furosemide 40mg tab ORAL SCH (09:14)
[2017-11-01] MEDS: Carvedilol 12.5mg tab ORAL SCH ×2 (09:14→21:12)
--- NOTE | 2017-11-01 10:12 | Diagnostic Imaging Report ---
Indication: Pain Technique: XRAY Shoulder Compl L Comparison: None Findings: There is no acute fracture or dislocation. There is very mild degenerative change at the AC joint. A well-corticated density projecting adjacent to the glenoid may represent sequela of degenerative change or remote injury. Imaged left lung is clear. Impression: No acute fracture or dislocation.
--- NOTE | 2017-11-01 11:04 | General Progress Note ---
Progress Note Progress Note pt seen and examined full consult will be dictated shortly CONOR MCKINNEY Nov 01, 2017 11:04
[2017-11-01 13:03] VITALS: BP 142/75
--- NOTE | 2017-11-01 14:41 | Cardiology Report ---
APPROVED REPORT EXAM: Two-dimensional and M-mode echocardiogram with Doppler and color Doppler. INDICATION Left Ventricular Function M-Mode DIMENSIONS IVSd2.0 (0.7-1.1cm)Left Atrium (MM)4.8 (1.6-4.0cm) LVDd5.4 (3.5-5.6cm)Aortic Root2.8 (2.0-3.7cm) PWd1.5 (0.7-1.1cm)Aortic Cusp Exc.1.9 (1.5-2.0cm) LVDs3.7 (2.5-4.0cm) PWs2.1 cm Normal left ventricular chamber size, systolic function and wall motio. Left ventricular ejection fraction estimated to be 55 %. Moderate left ventricular hypertrophy. Anterior Echo-free space, may be due to pericardial fat or effusion. Mild left atrial enlargement. Right cardiac chamber sizes are within normal limits. Focal aortic valve sclerosis with adequate cusp excursion. Thickened mitral valve leaflets with normal excursion. Mild mild mitral annulus and aortic root calcification. Pulmonic valve not well visualized. Normal tricuspid valve structure. IVC dilated at 2.1 cm with physiologic collapse. A color flow and spectral Doppler study was performed and revealed: Mild aortic regurgitation. Mild mitral regurgitation. reduced left ventricular relaxation c/w impaired relaxation diastolic dysfunction. Trace tricuspid regurgitation. Tricuspid systolic velocities suggests peak right ventricular systolic pressure of 30 mmHg. Trace pulmonic regurgitation present.
--- NOTE | 2017-11-01 14:53 | Cardiology Report ---
APPROVED REPORT EKG Measurement Heart [id number] Normal sinus rhythm with sinus arrhythmia Possible Anterior infarct, age undetermined Abnormal ECG
--- NOTE | 2017-11-01 15:48 | Cardiology Progress Note ---
Assessment/Plan Assessment/Plan The patient is seen and examined, full consult note is dictated. Objective Last 24 Hour Vital Signs Date Time Temp Pulse Resp B/P (MAP) Pulse Ox O2 Delivery O2 Flow Rate FiO2 11/01/17 13:03 97.7 80 20 142/75 98 Nasal Cannula 2.0 11/01/17 11:59 72 11/01/17 09:14 128/64 11/01/17 09:14 83 128/64 11/01/17 09:14 83 128/64 11/01/17 08:14 97.7 83 20 128/64 98 Nasal Cannula 2.0 11/01/17 07:40 82 11/01/17 06:57 96 Nasal Cannula 28.0 28 11/01/17 06:57 Nasal Cannula 2.0 28 11/01/17 05:12 79 16 98 Facial 30 11/01/17 04:00 97.7 81 20 150/82 98 11/01/17 03:57 84 11/01/17 03:05 90 22 99 Facial 30 11/01/17 02:18 30 11/01/17 01:20 96 20 99 Facial 30 11/01/17 00:00 97.9 84 20 161/90 98 10/31/17 23:40 95 22 98 Facial 30 10/31/17 22:29 98.5 79 21 167/89 98 Room Air 10/31/17 21:00 98.5 79 21 167/89 98 Room Air 10/31/17 19:00 81 20 153/72 98 Room Air 10/31/17 17:20 76 16 140/82 97 Room Air 10/31/17 16:20 98.5 Intake and Output 10/31/17 11/01/17 19:00 07:00 Intake Total 300 ml Output Total 1450 ml Balance -1150 ml Intake Oral 300 ml Output Urine Total 1450 ml # Bowel Movements 1 Laboratory Tests Test 11/01/17 05:45 11/01/17 12:00 White Blood Count 5.9 K/UL (4.8-10.8) Red Blood Count 4.52 M/UL (4.70-6.10) L Hemoglobin 11.6 G/DL (14.2-18.0) L Hematocrit 38.2 % (42.0-52.0) L Mean Corpuscular Volume 84 FL (80-99) Mean Corpuscular Hemoglobin 25.7 PG (27.0-31.0) L Mean Corpuscular Hemoglobin Concent 30.4 G/DL (32.0-36.0) L Red Cell Distribution Width 15.4 % (11.6-14.8) H Platelet Count 176 K/UL (150-450) Mean Platelet Volume 10.0 FL (6.5-10.1) Neutrophils (%) (Auto) 64.3 % (45.0-75.0) Lymphocytes (%) (Auto) 19.4 % (20.0-45.0) L Monocytes (%) (Auto) 12.0 % (1.0-10.0) H Eosinophils (%) (Auto) 3.2 % (0.0-3.0) H Basophils (%) (Auto) 1.1 % (0.0-2.0) Prothrombin Time 10.7 SEC (9.30-11.50) Prothromb Time International Ratio 1.0 (0.9-1.1) Activated Partial Thromboplast Time 29 SEC (23-33) Troponin I 0.025 ng/mL (0.000-0.056) C-Reactive Protein, Quantitative 2.2 mg/dL (0.00-0.90) H Triglycerides Level 83 MG/DL (30-150) Cholesterol Level 137 MG/DL (< 200) LDL Cholesterol 74 mg/dL (<100) HDL Cholesterol 55 MG/DL (40-60) Cholesterol/HDL Ratio 2.5 (3.3-4.4) L Thyroid Stimulating Hormone (TSH) 2.921 uiU/mL (0.358-3.740) Urine Eosinophils None seen Urine Random Creatinine Pending Urine Random Microalbumin Pending Urine Random Total Protein 63 MG/DL (< 11.9) H Urine Random Sodium 48 MEQ/L (20-110) Urine Creatinine 136.2 MG/DL (30.0-125.0) H Urine Microalbumin/Creatinine Ratio Pending KATELYN BOBBY Nov 01, 2017 15:48
--- NOTE | 2017-11-01 15:53 | History & Physical ---
History and Physical History & Physicial Primo Strauss MD Nov 01, 2017 15:53
[2017-11-01 16:00] VITALS: BP 136/83
--- NOTE | 2017-11-01 19:14 | Consultation ---
History of Present Illness General Date patient seen: Nov 01, 2017 Chief Complaint: dyspnea Present Illness HPI 62-year-old male with history of hypertension, CHF p/w chest pain for 2 days. Chest pain started while while he was driving. Localized to substernal area, no radiation to back, states it radiates to her left arm, however pain is worse with any arm movement, . Occurs both at rest and on exertion. + SOB. Denies palpitations, diaphoresis, n/v. pt is admitted to telemetry for ACS and dyspnea. Allergies: Coded Allergies: No Known Allergies (Verified , 01/17/12) Medication History Scheduled Allopurinol* (Allopurinol*), 300 MG ORAL DAILY, (Reported) Amlodipine Besylate* (Amlodipine Besylate*), 10 PO DAILY, (Reported) Aspirin* (Aspirin*), 81 MG ORAL DAILY, (Reported) Atorvastatin Calcium* (Atorvastatin Calcium*), 20 MG ORAL DAILY, (Reported) Bimatoprost (Lumigan), 1 DROP BOTH EYES QPM, (Reported) Carvedilol* (Carvedilol*), 25 MG ORAL BID, (Reported) Cetirizine Hcl* (Zyrtec*), 10 MG ORAL DAILY, (Reported) Cholecalciferol (Vitamin D3)* (Vitamin D*), 1,000 UNIT ORAL DAILY, (Reported) Ferrous Sulfate* (Ferrous Sulfate*), 325 MG ORAL DAILY, (Reported) Furosemide* (Lasix*), 40 MG ORAL DAILY Hydralazine Hcl* (Hydralazine Hcl*), 100 MG ORAL THREE TIMES A DAY, (Reported) Insulin Detemir (Levemir Flextouch), 7 UNIT SQ QHS, (Reported) Ipratropium [place] (Atrovent Hfa), 2 PUFFS IH TID, (Reported) Linagliptin (Tradjenta), 5 MG PO DAILY, (Reported) Liraglutide (Victoza 2-Gio), 1.8 MG SUBQ DAILY, (Reported) Mv,Minerals/Fa/Lycopene/Ginkgo (One Daily For Men 50+ Adv Tab), 1 TAB ORAL DAILY , (Reported) Omeprazole/Sodium Bicarbonate (Zegerid 40 Mg Capsule), 40-1,100 MG ORAL DAILY, ( Reported) Potassium Chloride* (K-Dur*), 20 MEQ ORAL DAILY, (Reported) Timolol Maleate (Timolol Maleate), 1 DROP BOTH EYES DAILY, (Reported) Scheduled PRN Docusate Sodium* (Docusate Sodium*), 100 MG ORAL THREE TIMES A DAY PRN for Constipation, (Reported) Discontinued Medications Carvedilol* (Carvedilol*), 12.5 MG ORAL EVERY 12 HOURS, (Reported) Discontinued Reason: Medication dose changed Insulin Detemir (Levemir Flexpen), 14 SUBQ BIDAC, (Reported) Discontinued Reason: Medication dose changed Liraglutide (Victoza 2-Gio), 0.6 MG SUBQ DAILY, (Reported) Discontinued Reason: Medication dose changed Omeprazole (Omeprazole), 20 MG ORAL DAILY, (Reported) Discontinued Reason: Pt stopped taking med Patient History Healthcare decision maker Resuscitation status Full Code Advanced Directive on File No Past Medical/Surgical History Past Medical/Surgical History: (1) HTN (hypertension) (2) CKD (chronic kidney disease) (3) CHF exacerbation Review of Systems Constitutional: Reports: malaise Respiratory: Reports: shortness of breath Cardiovascular: Reports: chest pain All Other Systems: negative except mentioned in HPI Physical Exam General Appearance: WD/WN, no apparent distress, overweight Lines, tubes and drains: peripheral HEENT: normocephalic, anicteric Neck: non-tender, normal alignment Respiratory/Chest: chest wall non-tender, lungs clear Cardiovascular/Chest: normal peripheral pulses, normal rate Abdomen: normal bowel sounds, non tender Extremities: normal range of motion Skin Exam: normal pigmentation Last 24 Hour Vital Signs Date Time Temp Pulse Resp B/P (MAP) Pulse Ox O2 Delivery O2 Flow Rate FiO2 11/01/17 16:48 79 11/01/17 16:00 98.0 80 20 136/83 98 Room Air 11/01/17 13:03 97.7 80 20 142/75 98 Nasal Cannula 2.0 11/01/17 11:59 72 11/01/17 09:14 128/64 11/01/17 09:14 83 128/64 11/01/17 09:14 83 128/64 11/01/17 08:14 97.7 83 20 128/64 98 Nasal Cannula 2.0 11/01/17 07:40 82 11/01/17 06:57 96 Nasal Cannula 28.0 28 11/01/17 06:57 Nasal Cannula 2.0 28 11/01/17 05:12 79 16 98 Facial 30 11/01/17 04:00 97.7 81 20 150/82 98 11/01/17 03:57 84 11/01/17 03:05 90 22 99 Facial 30 11/01/17 02:18 30 11/01/17 01:20 96 20 99 Facial 30 11/01/17 00:00 97.9 84 20 161/90 98 10/31/17 23:40 95 22 98 Facial 30 10/31/17 22:29 98.5 79 21 167/89 98 Room Air 10/31/17 21:00 98.5 79 21 167/89 98 Room Air Intake and Output 10/31/17 11/01/17 19:00 07:00 Intake Total 300 ml Output Total 1450 ml Balance -1150 ml Intake Oral 300 ml Output Urine Total 1450 ml # Bowel Movements 1 Laboratory Tests Test 11/01/17 05:45 11/01/17 12:00 White Blood Count 5.9 K/UL (4.8-10.8) Red Blood Count 4.52 M/UL (4.70-6.10) L Hemoglobin 11.6 G/DL (14.2-18.0) L Hematocrit 38.2 % (42.0-52.0) L Mean Corpuscular Volume 84 FL (80-99) Mean Corpuscular Hemoglobin 25.7 PG (27.0-31.0) L Mean Corpuscular Hemoglobin Concent 30.4 G/DL (32.0-36.0) L Red Cell Distribution Width 15.4 % (11.6-14.8) H Platelet Count 176 K/UL (150-450) Mean Platelet Volume 10.0 FL (6.5-10.1) Neutrophils (%) (Auto) 64.3 % (45.0-75.0) Lymphocytes (%) (Auto) 19.4 % (20.0-45.0) L Monocytes (%) (Auto) 12.0 % (1.0-10.0) H Eosinophils (%) (Auto) 3.2 % (0.0-3.0) H Basophils (%) (Auto) 1.1 % (0.0-2.0) Prothrombin Time 10.7 SEC (9.30-11.50) Prothromb Time International Ratio 1.0 (0.9-1.1) Activated Partial Thromboplast Time 29 SEC (23-33) Troponin I 0.025 ng/mL (0.000-0.056) C-Reactive Protein, Quantitative 2.2 mg/dL (0.00-0.90) H Triglycerides Level 83 MG/DL (30-150) Cholesterol Level 137 MG/DL (< 200) LDL Cholesterol 74 mg/dL (<100) HDL Cholesterol 55 MG/DL (40-60) Cholesterol/HDL Ratio 2.5 (3.3-4.4) L Thyroid Stimulating Hormone (TSH) 2.921 uiU/mL (0.358-3.740) Urine Eosinophils None seen Urine Random Creatinine Pending Urine Random Microalbumin Pending Urine Random Total Protein 63 MG/DL (< 11.9) H Urine Random Sodium 48 MEQ/L (20-110) Urine Creatinine 136.2 MG/DL (30.0-125.0) H Urine Microalbumin/Creatinine Ratio Pending Height (Feet): 5 Height (Inches): 7.00 Weight (Pounds): 284 Medications Current Medications Medications (Trade) Dose Ordered Sig/Oanh Route PRN Reason Start Time Stop Time Status Last Admin Dose Admin Acetaminophen (Tylenol) 650 mg Q4H PRN ORAL T>100.5 10/31/17 16:15 11/30/17 16:14 Albuterol/ Ipratropium (Albuterol/ Ipratropium) 3 ml Q4H PRN HHN Shortness of Breath 10/31/17 16:15 11/05/17 16:14 Amlodipine Besylate (Norvasc) 10 mg DAILY ORAL 11/01/17 09:00 12/01/17 08:59 11/01/17 09:14 Aspirin (ASA) 162 mg DAILY ORAL 11/01/17 09:00 12/01/17 08:59 Carvedilol (Coreg) 12.5 mg Q12HR ORAL 11/01/17 09:00 12/01/17 08:59 11/01/17 09:14 Dextrose (Dextrose 50%) STAT PRN IV Hypoglycemia 10/31/17 16:15 11/30/17 16:14 Diltiazem HCl (Cardizem) 10 mg Q1H PRN IV HR > 120 10/31/17 16:15 11/30/17 16:14 Enalaprilat (Vasotec) 2.5 mg Q6H PRN IV SBP > 160 10/31/17 16:15 11/30/17 16:14 Furosemide (Lasix) 40 mg DAILY ORAL 11/01/17 09:00 12/01/17 08:59 11/01/17 09:14 Heparin Sodium (Porcine) (Heparin 5000 units/ml) 5,000 units EVERY 8 HOURS SUBQ 10/31/17 22:00 11/30/17 21:59 11/01/17 13:51 Hydralazine HCl (Apresoline) 50 mg Q12HR ORAL 11/01/17 09:00 12/01/17 08:59 11/01/17 09:14 Insulin Aspart (NovoLOG) BEFORE MEALS AND HS SUBQ 10/31/17 17:30 11/30/17 17:29 11/01/17 11:49 Morphine Sulfate (Morphine Sulfate) 2 mg Q4H PRN IVP Severe Pain (Pain Scale 7-10) 10/31/17 16:15 11/07/17 16:14 10/31/17 23:16 Nitroglycerin (Ntg) 0.4 mg Q5MIN X 3 DOSES PRN SL Prn Chest Pain 10/31/17 16:30 11/30/17 16:29 Ondansetron HCl (Zofran) 4 mg Q6H PRN IVP Nausea & Vomiting 10/31/17 16:15 11/30/17 16:14 Pantoprazole (Protonix) 40 mg DAILY ORAL 11/01/17 09:00 12/01/17 08:59 11/01/17 08:01 Polyethylene Glycol (Miralax) 17 gm DAILYPRN PRN ORAL Constipation 10/31/17 16:15 11/30/17 16:14 Temazepam (Restoril) 15 mg HSPRN PRN ORAL Insomnia 10/31/17 21:00 11/07/17 20:59 Assessment/Plan Problem List: (1) SOB (shortness of breath) ICD Codes: R06.02 - Shortness of breath SNOMED: 245160038 (2) Dyspnea ICD Codes: R06.00 - Dyspnea SNOMED: 235813312 (3) Chest pain ICD Codes: R07.9 - Chest pain, unspecified SNOMED: 94803007 (4) HTN (hypertension) ICD Codes: I10 - Hypertension SNOMED: 28677839 (5) CKD (chronic kidney disease) ICD Codes: N18.9 - Chronic kidney disease SNOMED: 765977600 (6) PEPE (obstructive sleep apnea) ICD Codes: G47.33 - Obstructive sleep apnea (adult) (pediatric) SNOMED: 75633947 Assessment/Plan respiratory treatment titrate fio2 check spuutm cardiology evaluation echo serial ekg keep negative fluid balance titrate BIPAP NIELS LEE Nov 01, 2017 19:14
[2017-11-01] MEDS: Morphine Sulfate 2mg/ml Inj IVP PRN (19:47)
[2017-11-01 20:00] VITALS: BP 135/73
--- NOTE | 2017-11-01 21:30 | Consultation ---
DATE OF CONSULTATION: 11/01/2017 CARDIOLOGY CONSULTATION CONSULTING PHYSICIAN: Junaid Nguyễn M.D. REFERRING PHYSICIAN: Primo Strauss M.D. REASON FOR CONSULTATION: Management of chest pain. HISTORY OF PRESENT ILLNESS: The patient is a very pleasant 62-year-old gentleman, who presents to the hospital with traumatic left chest wall pain. Apparently, two nights ago when he was sleepy, he turns around and fell asleep and hit his left upper chest wall against the . He decided to come to the hospital to have that evaluated. At the time of arrival to the hospital, he had trouble with left arm movement. Initial blood pressure was 179/106 mmHg. He was considered to be a candidate for admission to the hospital for evaluation and management of the condition. The patient is well known to me. He has history of hypertensive heart disease with normal LV systolic function. He also suffers from chronic kidney disease. He has had prior ischemia workup at [facility]. A 2D echocardiography done on 11/01/2017 had shown normal LV systolic function with LVEF of about 55%, evidence of moderate left ventricular hypertrophy, mild aortic and mitral regurgitation, and grade 1 LV diastolic dysfunction. PAST MEDICAL HISTORY: Includes: 1. Diastolic heart failure. 2. Hypertension. 3. Hypertensive heart disease. 4. Chronic obstructive pulmonary disease. 5. Diabetes mellitus. 6. Gastroesophageal reflux disease. 7. History of headaches. PAST SURGICAL HISTORY: None. ALLERGIES: No known drug allergies. MEDICATIONS: List of medications at home include allopurinol 300 mg p.o. daily, amlodipine 10 mg p.o. daily, aspirin 81 mg p.o. daily, atorvastatin 20 mg p.o. at bedtime, Lumigan eye drops, carvedilol 25 mg twice daily, Zyrtec 10 mg p.o. daily, vitamin D 1000 units by mouth daily, Colace 100 mg p.o. three times a day, ferrous sulfate 325 mg p.o. daily, furosemide 40 mg p.o. daily, hydralazine 100 mg p.o. three times daily, Levemir insulin 7 units subcutaneously at bedtime, Atrovent two puffs three times a day, Tradjenta 5 mg p.o. daily, Victoza 1.5 mg subcutaneously daily, omeprazole/sodium bicarbonate 40-1100 mg by mouth daily, potassium chloride 20 mEq by mouth daily, and timolol maleate one drop twice daily. SOCIAL HISTORY: Denies any tobacco, alcohol, or illicit drug use. FAMILY HISTORY: No premature coronary artery disease in first-degree relatives. REVIEW OF SYSTEMS: HEENT: Denies any headache, diplopia, or blurred vision. CONSTITUTIONAL: Denies any fever, chills, night sweats, or weight loss. CARDIOVASCULAR: There is chest wall pain in the left upper precordial area, which is reducible. Denies any chest pain or shortness of breath. Denies any PND, orthopnea, or leg swelling. PULMONARY: Denies any cough, hemoptysis, or wheezing. GASTROINTESTINAL: Denies any nausea, vomiting, diarrhea, constipation, abdominal pain, or GI bleed. GENITOURINARY: Denies any hematuria, dysuria, or incontinence. NEUROLOGIC: Denies any motor dysfunction, sensory deficit, or altered speech. PHYSICAL EXAMINATION: VITAL SIGNS: Blood pressure was 179/106, respirations 16, pulse of 94, temperature 98.4 degrees Fahrenheit, and O2 saturation 99% on room air. GENERAL: The patient is a very pleasant 62-year-old gentleman, who is in no apparent respiratory distress. Alert and oriented x4. HEENT: Atraumatic and normocephalic. Anicteric. Pupils are equal, round, and reactive to light and accommodation. Extraocular muscles intact. NECK: JVP less than 5 cm. No carotid bruit. Carotid upstrokes 2+ bilaterally. CARDIOVASCULAR: Normal S1, S2. Regular rate and rhythm. No murmurs, gallops, or rubs. LUNGS: Clear to auscultation bilaterally. ABDOMEN: Soft, nontender, and nondistended. No hepatosplenomegaly. Positive bowel sounds. EXTREMITIES: There is 1 to 2+ bilateral lower extremity edema. LABORATORY AND DIAGNOSTIC DATA: Laboratory findings, WBC 7.6, hemoglobin 12.2, hematocrit of 40.2, and platelet count is 181. Chemistry showed sodium 141, potassium is 3.7, chloride 105, bicarbonate 26, BUN of 25, creatinine 2.9, glucose is 136, and calcium is 8.8. Troponin I x2 negative. ProBNP was 211. Total cholesterol was 137, triglycerides is 83, LDL was 74, and HDL of 55. INR was 1.0. A 12-lead electrocardiogram showed sinus rhythm at a rate of with sinus arrhythmia, possible anterior infarct, age indeterminate. ASSESSMENT AND PLAN: The patient is a very pleasant 62-year-old gentleman, seen in Cardiology consultation. 1. Most likely noncardiac chest pain, as the left pericardial pain occurred after his fall and trauma to the chest wall. I would control with narcotic is nonsteroidal anti-inflammatory drugs. It is contraindicated in the presence of chronic kidney disease. The patient has had comprehensive ischemic workup. A 2D echocardiography does not show any evidence of wall motion abnormalities. Acute myocardial infarction is ruled out. No further ischemic workup is warranted at this time. 2. Hypertensive heart disease with normal left ventricular systolic function, blood pressure stage III require to be aggressive and control of blood pressure in this patient. 3. Chronic kidney disease. 4. Diabetes mellitus, require to be on aspirin and statins. 5. Lower extremity edema, could be a combination of chronic kidney disease and possible diastolic dysfunction. I would like to thank, Dr. Strauss, for the courtesy of this consultation. Junaid Nguyễn M.D. DR: MICHAEL JOB#: [id number] CC:
[2017-11-02] VITALS: BP 100/66
--- NOTE | 2017-11-02 01:45 | History and Physical Report ---
DATE OF ADMISSION: 10/31/2017 HISTORY OF PRESENT ILLNESS: The patient presented complained about chest pain, shortness of breath, and progressive worsening over 48 hours. The patient stated that he fell couple days ago and sustained injury to the left shoulder. He called me 2 days ago and said that he has been having elevated blood pressure. His systolic blood pressure was in 200s. I advised him to take his hydralazine extra dose and his symptoms got progressively worsening. He said the chest pain mostly located in the left sternal area radiated to the back, radiated to the left arm and pain worsening with movement of the left arm and shoulder and subsequently, the patient was admitted to the hospital. After initial evaluation in the emergency with chest pain, possible acute coronary syndrome as well as acute kidney injury on chronic renal insufficiency. PAST MEDICAL HISTORY/PAST SURGICAL HISTORY: As above. History of morbid obesity; history of obstructive sleep apnea, on CPAP; history of diabetes, type 2; chronic renal insufficiency; congestive heart failure; and prior history of neck strain. MEDICATIONS AT HOME: Significant for albuterol, Atrovent, Norvasc, aspirin, Coreg, diltiazem, enalapril, Lasix, hydralazine, aspart insulin, Nitrostat, Zofran, Protonix, MiraLAX, and temazepam. ALLERGIES: No known drug allergies. SOCIAL HISTORY: Denies any smoking. He drinks occasionally. No substance abuse. FAMILY HISTORY: Noncontributory. REVIEW OF SYSTEMS: Mostly as above. Denies any dysuria, frequency, or hematuria. Denies any hemoptysis or hematochezia. Complained about occasional pedal edema. Denies any loss of consciousness. PHYSICAL EXAMINATION: VITAL SIGNS: On admission, temperature 97.7, pulse of 81, respirations 20, and blood pressure 150/82, repeat one is 142/75. GENERAL: The patient is awake and responsive, in no acute distress. HEAD AND NECK: Pupils are reactive to light. Extraocular movements are intact. NECK: Supple. No JVD. LUNGS: No wheezing or rales. Decreased air in the bases. HEART: S1 and S2. Distant heart sounds. Normal gallops. ABDOMEN: Soft, nondistended, and morbidly obese. EXTREMITIES: No cyanosis, clubbing, or edema. NEUROLOGIC: Cranial nerves II through XII are grossly intact. The patient is moving all extremities except the left upper extremity due to the tenderness and pain with limited range of motion from the shoulder due to the pain over the shoulder area. LABORATORY AND DIAGNOSTIC DATA: On admission, WBC of 7.6, hemoglobin 12, hematocrit 40, and platelets 181. Sodium 141, potassium 3.7, chloride 105, bicarbonate 26, BUN 25, creatinine 2.9, and glucose is 136. Troponin less than 0.01. ProBNP of 1211. C-reactive protein 2.2. Albumin is 3.3. Cholesterol is 137. PT of 10. INR 1.0. PTT of 29. UA is +3 protein, 0 to 2 RBCs, otherwise all negative. The patient's chest x-ray was noted to be cardiomegaly with question of mild congestive interstitial edema. No evidence of focal consolidation. X-ray of the left shoulder, no acute fracture or dislocation was identified. Echocardiogram was done, noted ejection fraction of 55% with moderate left ventricular hypertrophy. The patient's left IVC dilated with 2.1 cm with physiological collapse. ASSESSMENT: 1. Atypical chest pain, possible acute coronary syndrome. 2. Congestive heart failure. 3. Diabetes type 2. 4. Chronic kidney disease. 5. Morbid obesity. 6. Obstructive sleep apnea. 7. Left shoulder pain, most likely ligamental injury. PLAN: Admit the patient to telemetry. We will follow up with Dr. Nguyễn from Cardiology and Dr. Templeton from Nephrology. We will monitor laboratory closely including serial cardiac enzymes. We will resume home medications. Accu-Chek with sliding scale. DVT prophylaxis. Heparin subcutaneous. Code status is full code. If the patient's status improved, we will consider discharge home soon. Primo Strauss M.D. DR: KENDRA JOB#: [id number] CC:
--- NOTE | 2017-11-02 02:00 | Consultation ---
DATE OF CONSULTATION: 11/01/2017 NEPHROLOGY CONSULTATION CONSULTING PHYSICIAN: Angelita Templeton M.D. REFERRING PHYSICIAN: Primo Strauss M.D. REASON FOR CONSULTATION: Acute on chronic renal failure. HISTORY OF PRESENT ILLNESS: The patient is a 62-year-old male, well known to me from prior outpatient visit. He has a baseline creatinine of 2.7. Apparently, he fell on his left shoulder while he was sleeping. He presented to the ER complaining of chest pain for 2 days, which was mostly on the left side. The patient took couple of Advil for his pain without any improvement. He also had an increasing of shortness of breath. Upon arrival in the ER, the patient was found to have accelerated blood pressure and was consequently admitted in the hospital. I was called for management of renal disease and electrolyte imbalance. PAST MEDICAL HISTORY: 1. History of chronic kidney disease, stage 4. 2. History of hypertension. 3. History of morbid obesity. 4. History of COPD. 5. History of diabetes. 6. History of dyslipidemia. 7. History of renal osteodystrophy. PAST SURGICAL HISTORY: None. MEDICATIONS: 1. Allopurinol 300 mg p.o. daily. 2. Amlodipine 10 mg p.o. daily. 3. Aspirin 81 mg p.o. daily. 4. Atorvastatin 20 mg p.o. daily. 5. Carvedilol 25 mg p.o. daily. 6. Colace 100 mg p.o. daily. 7. Iron sulfate 325 mg p.o. daily. 8. Lasix 40 mg p.o. daily. 9. Hydralazine 100 mg p.o. daily. 10. Insulin. 11. Trajenta 5 mg p.o. daily. 12. Victoza. 13. MVI. 14. Potassium. 15. Timolol. REVIEW OF SYSTEMS: GENERAL: He complained of generalized weakness. Denied any fever, chills, or night sweats. HEAD AND NECK: Denies any dysphagia, odynophagia, blurry vision, headache, or neck stiffness. PULMONARY: Mild shortness of breath. No cough. No sputum. CARDIOVASCULAR: Complained of orthopnea, PND, and minimal amount of lower extremity swelling. GASTROINTESTINAL: Complained of bloating. No nausea. No vomiting. GENITOURINARY: Denies any dysuria, frequency, or hematuria. MUSCULOSKELETAL: He complained of generalized weakness. Denies any localized weakness or numbness. PHYSICAL EXAMINATION: VITAL SIGNS: The patient has temperature of 97, blood pressure 128/64, pulse rate of 98, and respiratory rate of 18. HEAD AND NECK: No JVP. No LAD. No thyromegaly. Extraocular movements intact. Pupils are reactive to light and accommodation. LUNGS: Decreased breathing sounds on both sides. CARDIAC: Regular rate and rhythm. S1 and S2. No murmur. No rub. ABDOMEN: Obese, nontender, and nondistended. EXTREMITIES: Trace edema. No clubbing. No cyanosis. LABORATORY AND DIAGNOSTIC DATA: The patient had a chest x-ray, which revealed mild questionable CHF, cardiomegaly and no consolidation. Lab values revealed WBC count of 5.9, hemoglobin of 11.6, hematocrit of 38, and platelet count of 176. Chemistry revealed sodium 141, potassium of 3.7, chloride 105, bicarb 26, BUN of 25, creatinine of 2.9, and glucose of 136. Calcium of 8.8. AST of 25, ALT of 16, and alkaline phosphatase of 89. Troponins are negative. Cholesterol panel revealed cholesterol of 80, triglycerides of 137, HDL of 55, and LDL of 74. UA revealed specific gravity of 1.010, pH of 6, protein 3+, WBCs 0 to 3, and RBCs 0 to 3. ASSESSMENT: 1. Acute on chronic renal failure. The etiology of acute renal failure including acute tubular necrosis due to unstable hemodynamics, cardiorenal syndrome versus nonsteroidal anti-inflammatory drug use. Accelerated high blood pressure most likely as a result of severe pain and using nonsteroidal anti-inflammatory drugs. 2. History of gout. 3. Diabetes. 4. Morbid obesity. PLAN: Plan for the patient is to obtain UA. Check the random urine protein-creatinine ratio to calculate the proteinuria. Check the the urine sodium and creatinine to calculate fractional excretion of sodium. Ultrasound of the kidney to evaluate the kidney size. Check the urine for eosinophils. Drop the dose of allopurinol to 100 mg p.o. daily. Avoid any NSAIDs or nephrotoxics. At the end, I would like to thank Dr. Strauss for allowing me to participate in the care of this patient. Angelita Templeton M.D. DR: HOLDEN JOB#: [id number] CC:
[2017-11-02 04:00] VITALS: BP 124/77
[2017-11-02] MEDS: Heparin 5000 units/ml inj SUBQ SCH ×3 (06:59→21:07)
[2017-11-02] MEDS: NovoLOG Insulin Flexpen SUBQ SCH ×4 (07:00→21:49)
--- NOTE | 2017-11-02 07:30 | Pulmonology Progress Note ---
Assessment/Plan Assessment/Plan ASSESSMENT CP, likely noncardiac ( due to fall, of musculoskeletal origin) likely chest wall contusion diastolic dysfunction ARF on ? CKD HTN heart disease COPD DM edema LE ( combination of renal failure and possible diastolic dysfunction) hypoechoic mass R kidney PLAN OF CARE tele O2 HHN prn , CXR + CM, mild CHF serial troponin negative, no ischemic changes, cardio ruled out for acute SC per cardio non-cardiac CP, which started after fall, chest wall pain ECHO with pEF 55% and RVSP of 30, moderate LVH Venous Duplex BLE negative Continue ASA, statin X ray L shoulder no acute fracture nephro follows monitor renal parameters, lytes, correct as needed, avoid nephrotoxic BP management with CCB, BB and Hydrazine Low dosage oral Lasix, monitor cardio-renal parameters, lytes BS management with SS of insulin renal US with hypoechoic mass T kidney ( cyst vs solid mass) , normal echogenicity bilaterally, no hydro furtehr w/up -as suggested by nephro outpt vs in patient DVT GI prophylaxis transfer to MD case discussed and evaluated by supervising physician Subjective Allergies: Coded Allergies: No Known Allergies (Verified , 01/17/12) Subjective denies chest pain, states that edema decreasing creat w/out change Objective Last 24 Hour Vital Signs Date Time Temp Pulse Resp B/P (MAP) Pulse Ox O2 Delivery O2 Flow Rate FiO2 11/02/17 06:00 Nasal Cannula 2.0 28 11/02/17 04:00 97.0 76 20 124/77 98 11/02/17 03:15 70 18 99 Facial 2.0 30 11/02/17 00:48 70 18 99 Facial 30 11/02/17 00:00 74 11/02/17 00:00 98.1 72 18 100/66 99 11/01/17 22:00 30 11/01/17 21:12 135/73 11/01/17 21:12 85 135/73 11/01/17 20:00 97.9 85 18 135/73 99 11/01/17 20:00 77 11/01/17 19:30 28 11/01/17 19:29 79 20 98 Nasal Cannula 2.0 28 11/01/17 19:24 98 Nasal Cannula 2.0 28 11/01/17 19:24 Nasal Cannula 2.0 28 11/01/17 16:48 79 11/01/17 16:00 98.0 80 20 136/83 98 Room Air 11/01/17 13:03 97.7 80 20 142/75 98 Nasal Cannula 2.0 11/01/17 11:59 72 11/01/17 09:14 128/64 11/01/17 09:14 83 128/64 11/01/17 09:14 83 128/64 11/01/17 08:14 97.7 83 20 128/64 98 Nasal Cannula 2.0 11/01/17 07:40 82 Intake and Output 11/01/17 11/02/17 19:00 07:00 Intake Total 1160 ml Output Total 1000 ml 1400 ml Balance 160 ml -1400 ml Intake Oral 1160 ml Output Urine Total 1000 ml 1400 ml # Bowel Movements 1 1 General Appearance: no acute distress, other - A/A/O x 3 morbidly obese AA male in NAd HEENT: normocephalic, atraumatic, anicteric, mucous membranes moist Respiratory/Chest: lungs clear - WITH MODERATE AIR EXCHANGE , no respiratory distress, no accessory muscle use Cardiovascular: normal rate, regular rhythm - sr ON TELE Abdomen: normal bowel sounds, soft, non tender - OBESE Extremities: pedal pulses normal, other - +1 EDEMA ble Neurologic/Psychiatric: no motor/sensory deficits, alert, oriented x 3, responsive Musculoskeletal: normal muscle bulk Laboratory Tests 11/01/17 12:00: Urine Eosinophils None seen, Urine Random Creatinine [Pending], Urine Random Microalbumin [Pending], Urine Random Total Protein 63H, Urine Random Sodium 48, Urine Creatinine 136.2H, Urine Microalbumin/Creatinine Ratio [Pending] Current Medications Medications (Trade) Dose Ordered Sig/Oanh Route PRN Reason Start Time Stop Time Status Last Admin Dose Admin Acetaminophen (Tylenol) 650 mg Q4H PRN ORAL T>100.5 10/31/17 16:15 11/30/17 16:14 Albuterol/ Ipratropium (Albuterol/ Ipratropium) 3 ml Q4H PRN HHN Shortness of Breath 10/31/17 16:15 11/05/17 16:14 11/01/17 19:31 Amlodipine Besylate (Norvasc) 10 mg DAILY ORAL 11/01/17 09:00 12/01/17 08:59 11/01/17 09:14 Aspirin (ASA) 162 mg DAILY ORAL 11/01/17 09:00 12/01/17 08:59 Carvedilol (Coreg) 12.5 mg Q12HR ORAL 11/01/17 09:00 12/01/17 08:59 11/01/17 21:12 Dextrose (Dextrose 50%) STAT PRN IV Hypoglycemia 10/31/17 16:15 11/30/17 16:14 Diltiazem HCl (Cardizem) 10 mg Q1H PRN IV HR > 120 10/31/17 16:15 11/30/17 16:14 Enalaprilat (Vasotec) 2.5 mg Q6H PRN IV SBP > 160 10/31/17 16:15 11/30/17 16:14 Furosemide (Lasix) 40 mg DAILY ORAL 11/01/17 09:00 12/01/17 08:59 11/01/17 09:14 Heparin Sodium (Porcine) (Heparin 5000 units/ml) 5,000 units EVERY 8 HOURS SUBQ 10/31/17 22:00 11/30/17 21:59 11/02/17 06:59 Hydralazine HCl (Apresoline) 50 mg Q12HR ORAL 11/01/17 09:00 12/01/17 08:59 11/01/17 21:12 Insulin Aspart (NovoLOG) BEFORE MEALS AND HS SUBQ 10/31/17 17:30 11/30/17 17:29 11/02/17 07:00 Morphine Sulfate (Morphine Sulfate) 2 mg Q4H PRN IVP Severe Pain (Pain Scale 7-10) 10/31/17 16:15 11/07/17 16:14 11/01/17 19:47 Nitroglycerin (Ntg) 0.4 mg Q5MIN X 3 DOSES PRN SL Prn Chest Pain 10/31/17 16:30 11/30/17 16:29 Ondansetron HCl (Zofran) 4 mg Q6H PRN IVP Nausea & Vomiting 10/31/17 16:15 11/30/17 16:14 Pantoprazole (Protonix) 40 mg DAILY ORAL 11/01/17 09:00 12/01/17 08:59 11/01/17 08:01 Polyethylene Glycol (Miralax) 17 gm DAILYPRN PRN ORAL Constipation 10/31/17 16:15 11/30/17 16:14 Temazepam (Restoril) 15 mg HSPRN PRN ORAL Insomnia 10/31/17 21:00 11/07/17 20:59 [facility] ([facility])Rach NP Nov 02, 2017 07:30
[2017-11-02 08:00] VITALS: BP 158/87
--- NOTE | 2017-11-02 08:23 | Diagnostic Imaging Report ---
Indication: Reason For Exam: RENAL-A Technique: Renal ultrasound COMPARISON: 04/27/2014 Findings: Kidneys: The kidneys are normal in size and echogenicity. There is no hydronephrosis. No perinephric fluid is identified. Is a hypoechoic mass in the cortex of the right kidney measuring 1.6 cm. IVC: Not visualized. Bladder: The bladder is unremarkable. Impression: Poorly imaged hypoechoic mass in the right kidney. Was not utilized on prior examination. This probably represents a cyst. A solid lesion is not excluded however. CT with contrast suggested for better evaluation if clinically warranted.
[2017-11-02] MEDS: Furosemide 40mg tab ORAL SCH (09:49)
[2017-11-02] MEDS: HydrALAZINE 50mg tab ORAL SCH ×2 (09:50→21:02)
[2017-11-02] MEDS: Carvedilol 12.5mg tab ORAL SCH ×2 (09:51→21:04)
[2017-11-02] MEDS: Aspirin Baby 81mg ORAL SCH (09:52)
[2017-11-02] MEDS: Morphine Sulfate 2mg/ml Inj IVP PRN (09:54)
--- NOTE | 2017-11-02 11:55 | Internal Med Progress Note ---
Subjective Date of Service: Nov 02, 2017 Physician Name Juarez Mcfadden Attending Physician Primo Strauss MD Current Medications Medications (Trade) Dose Ordered Sig/Oanh Route PRN Reason Start Time Stop Time Status Last Admin Dose Admin Acetaminophen (Tylenol) 650 mg Q4H PRN ORAL T>100.5 10/31/17 16:15 11/30/17 16:14 Albuterol/ Ipratropium (Albuterol/ Ipratropium) 3 ml Q4H PRN HHN Shortness of Breath 10/31/17 16:15 11/05/17 16:14 11/01/17 19:31 Amlodipine Besylate (Norvasc) 10 mg DAILY ORAL 11/01/17 09:00 12/01/17 08:59 11/02/17 09:51 Aspirin (ASA) 162 mg DAILY ORAL 11/01/17 09:00 12/01/17 08:59 11/02/17 09:52 Carvedilol (Coreg) 12.5 mg Q12HR ORAL 11/01/17 09:00 12/01/17 08:59 11/02/17 09:51 Dextrose (Dextrose 50%) STAT PRN IV Hypoglycemia 10/31/17 16:15 11/30/17 16:14 Diltiazem HCl (Cardizem) 10 mg Q1H PRN IV HR > 120 10/31/17 16:15 11/30/17 16:14 Enalaprilat (Vasotec) 2.5 mg Q6H PRN IV SBP > 160 10/31/17 16:15 11/30/17 16:14 Furosemide (Lasix) 40 mg DAILY ORAL 11/01/17 09:00 12/01/17 08:59 11/02/17 09:49 Heparin Sodium (Porcine) (Heparin 5000 units/ml) 5,000 units EVERY 8 HOURS SUBQ 10/31/17 22:00 11/30/17 21:59 11/02/17 06:59 Hydralazine HCl (Apresoline) 50 mg Q12HR ORAL 11/01/17 09:00 12/01/17 08:59 11/02/17 09:50 Insulin Aspart (NovoLOG) BEFORE MEALS AND HS SUBQ 10/31/17 17:30 11/30/17 17:29 11/02/17 07:00 Morphine Sulfate (Morphine Sulfate) 2 mg Q4H PRN IVP Severe Pain (Pain Scale 7-10) 10/31/17 16:15 11/07/17 16:14 11/02/17 09:54 Nitroglycerin (Ntg) 0.4 mg Q5MIN X 3 DOSES PRN SL Prn Chest Pain 10/31/17 16:30 11/30/17 16:29 Ondansetron HCl (Zofran) 4 mg Q6H PRN IVP Nausea & Vomiting 10/31/17 16:15 11/30/17 16:14 Pantoprazole (Protonix) 40 mg DAILY ORAL 11/01/17 09:00 12/01/17 08:59 11/02/17 09:51 Polyethylene Glycol (Miralax) 17 gm DAILYPRN PRN ORAL Constipation 10/31/17 16:15 11/30/17 16:14 Temazepam (Restoril) 15 mg HSPRN PRN ORAL Insomnia 10/31/17 21:00 11/07/17 20:59 Allergies: Coded Allergies: No Known Allergies (Verified , 01/17/12) ROS Limited/Unobtainable: No Constitutional: Reports: no symptoms HEENT: Reports: no symptoms Cardiovascular: Reports: chest pain Respiratory: Reports: no symptoms Gastrointestinal/Abdominal: Reports: no symptoms Genitourinary: Reports: no symptoms Neurologic/Psychiatric: Reports: no symptoms Subjective 62 YO M admitted with chest pain. Cover for Int Brent-Dr Strauss. Objective Last Vital Signs Date Time Temp Pulse Resp B/P (MAP) Pulse Ox O2 Delivery O2 Flow Rate FiO2 11/02/17 09:51 84 158/78 11/02/17 08:00 97.2 20 99 11/02/17 07:46 Nasal Cannula 2.0 28 General Appearance: no apparent distress, alert, obese EENT: PERRL/EOMI, normal ENT inspection Neck: non-tender, normal alignment, supple, normal inspection Cardiovascular: normal peripheral pulses, normal rate, regular rhythm, no gallop/murmur, no JVD Respiratory/Chest: chest wall non-tender, lungs clear, normal breath sounds, no respiratory distress, no accessory muscle use Abdomen: normal bowel sounds, non tender, soft, no organomegaly, no mass Extremities: other - left shoulder pain Edema: trace edema 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, no motor/sensory deficits Skin: normal pigmentation, warm/dry Laboratory Tests Test 11/01/17 12:00 11/02/17 07:45 Urine Eosinophils None seen Urine Random Creatinine Pending Urine Random Microalbumin Pending Urine Random Total Protein 63 MG/DL (< 11.9) H Urine Random Sodium 48 MEQ/L (20-110) Urine Creatinine 136.2 MG/DL (30.0-125.0) H Urine Microalbumin/Creatinine Ratio Pending Troponin I 0.009 ng/mL (0.000-0.056) Intake and Output 11/01/17 11/02/17 19:00 07:00 Intake Total 1160 ml Output Total 1000 ml 1400 ml Balance 160 ml -1400 ml Intake Oral 1160 ml Output Urine Total 1000 ml 1400 ml # Bowel Movements 1 1 Assessment/Plan Problem List: (1) Chest pain Assessment & Plan: Non cardiac-referred Left shoulder pain. See cardiology note-Dr Nguyễn (2) Shoulder pain, left Assessment & Plan: X-Ray=no acute fractrue. Await MRI (3) SOB (shortness of breath) (4) Diabetes mellitus, type II Assessment & Plan: Continue novolog sliding scale. (5) Acute on chronic renal failure Assessment & Plan: See renal note-Dr Templeton (6) Accelerated hypertension Assessment & Plan: Continue coreg, cardizem, vasotec and norvasc. (7) PEPE (obstructive sleep apnea) Assessment & Plan: On CPAP (8) Obesity (BMI 35.0-39.9 without comorbidity) (9) COPD (chronic obstructive pulmonary disease) Status: progressing JUAREZ MCFADDEN Nov 02, 2017 11:55
[2017-11-02 12:00] VITALS: BP 134/84
[2017-11-02 14:17] LABS: ANION GAP 8 mmol/L (5-15); BLOOD UREA NITROGEN 34 mg/dL (7-18); CALCIUM 8.9 MG/DL (8.5-10.1); CARBON DIOXIDE 30 MMOL/L (21-32); CHLORIDE 103 MMOL/L (98-107); CREATININE 2.9 MG/DL (0.55-1.30); POTASSIUM 4.4 MMOL/L (3.5-5.1); SODIUM 141 MMOL/L (136-145)
[2017-11-02 16:00] VITALS: BP 132/75
--- NOTE | 2017-11-02 18:06 | Nephrology Progress Note ---
Assessment/Plan Assessment 1. Acute on chronic renal failure. . 2. History of gout. 3. Diabetes. 4. Morbid obesity. Plan plan hold enalapril monitoring renal function avoid NSAID replace electrolyte as need it daily wt monitoring in and out put Subjective Constitutional: Reports: no symptoms HEENT: Reports: no symptoms Genitourinary: Reports: no symptoms Neurologic/Psychiatric: Reports: no symptoms Subjective alert and awake feeling better today Objective Objective Last 24 Hour Vital Signs Date Time Temp Pulse Resp B/P (MAP) Pulse Ox O2 Delivery O2 Flow Rate FiO2 11/02/17 16:00 97.8 73 19 132/75 99 11/02/17 12:00 72 11/02/17 12:00 97.8 70 22 134/84 99 11/02/17 09:51 84 158/78 11/02/17 09:51 82 158/58 11/02/17 09:50 158/68 11/02/17 08:00 84 11/02/17 08:00 97.2 82 20 158/87 99 11/02/17 07:46 98 Nasal Cannula 2.0 28 11/02/17 07:46 Nasal Cannula 2.0 28 11/02/17 06:00 Nasal Cannula 2.0 28 11/02/17 04:00 97.0 76 20 124/77 98 11/02/17 04:00 76 11/02/17 03:15 70 18 99 Facial 2.0 30 11/02/17 00:48 70 18 99 Facial 30 11/02/17 00:00 74 11/02/17 00:00 98.1 72 18 100/66 99 11/01/17 22:00 30 11/01/17 21:12 135/73 11/01/17 21:12 85 135/73 11/01/17 20:00 97.9 85 18 135/73 99 11/01/17 20:00 77 11/01/17 19:30 28 11/01/17 19:29 79 20 98 Nasal Cannula 2.0 28 11/01/17 19:24 98 Nasal Cannula 2.0 28 11/01/17 19:24 Nasal Cannula 2.0 28 Intake and Output 11/01/17 11/02/17 19:00 07:00 Intake Total 1160 ml Output Total 1000 ml 1400 ml Balance 160 ml -1400 ml Intake Oral 1160 ml Output Urine Total 1000 ml 1400 ml # Bowel Movements 1 1 Laboratory Tests 11/02/17 07:45: Troponin I 0.009 11/02/17 07:47: Sodium Level 141, Potassium Level 4.4, Chloride Level 103, Carbon Dioxide Level 30, Anion Gap 8, Blood Urea Nitrogen 34H, Creatinine 2.9H, Estimat Glomerular Filtration Rate 27.0, Glucose Level 122H, Calcium Level 8.9 Height (Feet): 5 Height (Inches): 7.00 Weight (Pounds): 284 Objective HEAD AND NECK: No JVP. No LAD. No thyromegaly. Extraocular movements intact. Pupils are reactive to light and accommodation. LUNGS: Decreased breathing sounds on both sides. CARDIAC: Regular rate and rhythm. S1 and S2. No murmur. No rub. ABDOMEN: Obese, nontender, and nondistended. EXTREMITIES: Trace edema. No clubbing. No cyanosis. CONOR MCKINNEY Nov 02, 2017 18:06
[2017-11-02] MEDS ORDERED: Nitroglycerin Subl 0.4mg tab SL PRN (19:00)
[2017-11-02] MEDS ORDERED: dilTIAZem HCl 25mg/5ml Inj IV PRN (19:15)
[2017-11-02] MEDS ORDERED: Miralax 17gm pkt ORAL PRN (20:00)
[2017-11-02] MEDS ORDERED: Albuterol/Ipratropium 3ml neb HHN PRN (20:15)
[2017-11-02] MEDS ORDERED: Morphine Sulfate 2mg/ml Inj IVP PRN (20:15)
[2017-11-02 20:33] VITALS: BP 141/80
[2017-11-03 04:00] VITALS: BP 155/76
[2017-11-03] MEDS: NovoLOG Insulin Flexpen SUBQ SCH ×4 (06:21→20:39)
[2017-11-03] MEDS: Heparin 5000 units/ml inj SUBQ SCH ×3 (06:22→20:40)
[2017-11-03 07:59] LABS: BASOPHILS % (AUTO) 2.8 % (0.0-2.0); EOSINOPHILS % (AUTO) 3.4 % (0.0-3.0); HEMATOCRIT 35.9 % (42.0-52.0); HEMOGLOBIN 10.9 G/DL (14.2-18.0); LYMPHOCYTES % (AUTO) 24.9 % (20.0-45.0); MEAN CORPUSCULAR VOLUME 84 FL (80-99); MONOCYTES % (AUTO) 12.1 % (1.0-10.0); NEUTROPHILS % (AUTO) 56.8 % (45.0-75.0); PLATELET COUNT 162 K/UL (150-450); RED BLOOD COUNT 4.27 M/UL (4.70-6.10); RED CELL DISTRIBUTION WIDTH 15.4 % (11.6-14.8); WHITE BLOOD COUNT 5.5 K/UL (4.8-10.8)
[2017-11-03 08:00] VITALS: BP 166/90
[2017-11-03] MEDS: Aspirin Baby 81mg ORAL SCH (08:42)
[2017-11-03] MEDS: Furosemide 40mg tab ORAL SCH (08:43)
[2017-11-03] MEDS: Carvedilol 12.5mg tab ORAL SCH ×2 (08:43→20:33)
[2017-11-03] MEDS: HydrALAZINE 50mg tab ORAL SCH ×2 (08:45→20:33)
--- NOTE | 2017-11-03 09:36 | Diagnostic Imaging Report ---
APPROVED REPORT CPT Code: 42697 Present Symptoms Comments: R/O DVT BILATERAL: Imaging reveals a patent deep venous system bilaterally. There is no evidence of thrombus within the femoral, popliteal or tibial segments. The greater saphenous veins are also within normal limits. Doppler indicates normal spontaneous flow within these segments.
[2017-11-03 11:32] VITALS: BP 163/84
[2017-11-03] MEDS ORDERED: Norco 5mg/325mg tab ORAL PRN (12:30)
--- NOTE | 2017-11-03 12:34 | Pulmonology Progress Note ---
Assessment/Plan Assessment/Plan ASSESSMENT CP, likely noncardiac ( due to fall, of musculoskeletal origin) likely chest wall contusion diastolic dysfunction CKD HTN heart disease COPD DM edema LE ( combination of renal failure and possible diastolic dysfunction) hypoechoic mass R kidney PLAN OF CARE tele O2 HHN prn , CXR + CM, mild CHF fup with CXR in am serial troponin negative, no ischemic changes, cardio ruled out for acute MN per cardio non-cardiac CP, which started after fall, chest wall pain ECHO with pEF 55% and RVSP of 30, moderate LVH Venous Duplex BLE negative Continue ASA, statin X ray L shoulder no acute fracture pain management patient does not want Morphine( reserve only for severe pain) will add [place] BP management with CCB, BB and Hydrazine Low dosage oral Lasix, monitor cardio-renal parameters, lytes BS management with SS of insulin nephro follows monitor renal parameters, lytes, correct as needed, avoid nephrotoxic renal US with hypoechoic mass T kidney ( cyst vs solid mass) , normal echogenicity bilaterally, no hydro further w/up -as suggested by nephro outpt vs in patient DVT GI prophylaxis transfer to [place] case discussed and evaluated by supervising physician Subjective Allergies: Coded Allergies: No Known Allergies (Verified , 01/17/12) Subjective denies chest pain, states that edema decreasing creat w/out change pain in shoulder and chest wall Morphine males him groggy, prefers smth else Objective Last 24 Hour Vital Signs Date Time Temp Pulse Resp B/P (MAP) Pulse Ox O2 Delivery O2 Flow Rate FiO2 11/03/17 11:32 98.0 74 20 163/84 99 Room Air 11/03/17 08:45 166/90 11/03/17 08:43 74 166/90 11/03/17 08:42 74 166/90 11/03/17 08:00 98.0 74 22 166/90 96 Room Air 11/03/17 07:46 98 Nasal Cannula 2.0 28 11/03/17 07:46 Nasal Cannula 2.0 28 11/03/17 04:00 97.0 67 20 155/76 100 Bi-pap 11/03/17 03:02 88 17 97 Facial 30 11/03/17 01:17 86 17 97 Facial 30 11/02/17 23:30 84 17 97 Facial 2.0 28 11/02/17 21:37 97 Nasal Cannula 2.0 28 11/02/17 21:37 Nasal Cannula 2.0 28 11/02/17 21:04 83 141/80 11/02/17 21:02 141/80 11/02/17 20:34 Nasal Cannula 2.0 11/02/17 20:33 98.5 83 17 141/80 97 11/02/17 16:00 97.8 73 19 132/75 99 Intake and Output 11/02/17 11/03/17 19:00 07:00 Intake Total 300 ml Balance 300 ml Intake Oral 300 ml # Voids 3 # Bowel Movements 1 Objective General Appearance: no acute distress, other - A/A/O x 3 morbidly obese AA male in NAD HEENT: normocephalic, atraumatic, anicteric, mucous membranes moist Respiratory/Chest: lungs clear -with moderate air exchange no respiratory distress, no accessory muscle use Cardiovascular: normal rate Abdomen: normal bowel sounds, soft, non tender , obese Extremities: pedal pulses normal, other - +1 edema BLE Neurologic/Psychiatric: no motor/sensory deficits, alert, oriented x 3, responsive Musculoskeletal: normal muscle bulk Laboratory Tests 11/03/17 06:34: White Blood Count 5.5, Red Blood Count 4.27L, Hemoglobin 10.9L, Hematocrit 35.9L , Mean Corpuscular Volume 84, Mean Corpuscular Hemoglobin 25.5L, Mean Corpuscular Hemoglobin Concent 30.3L, Red Cell Distribution Width 15.4H, Platelet Count 162, Mean Platelet Volume 10.1, Neutrophils (%) (Auto) 56.8, Lymphocytes (%) (Auto) 24.9, Monocytes (%) (Auto) 12.1H, Eosinophils (%) (Auto) 3.4H, Basophils (%) (Auto) 2.8H, Troponin I 0.006 Current Medications Medications (Trade) Dose Ordered Sig/Oanh Route PRN Reason Start Time Stop Time Status Last Admin Dose Admin Acetaminophen (Tylenol) 650 mg Q4H PRN ORAL T>100.5 11/02/17 20:00 12/02/17 19:59 Albuterol/ Ipratropium (Albuterol/ Ipratropium) 3 ml Q4H PRN HHN Shortness of Breath 11/02/17 20:15 11/05/17 16:14 Amlodipine Besylate (Norvasc) 10 mg DAILY ORAL 11/03/17 09:00 12/01/17 08:59 11/03/17 08:42 Aspirin (ASA) 162 mg DAILY ORAL 11/03/17 09:00 12/01/17 08:59 11/03/17 08:42 Carvedilol (Coreg) 12.5 mg Q12HR ORAL 11/02/17 21:00 12/01/17 08:59 11/03/17 08:43 Dextrose (Dextrose 50%) STAT PRN IV Hypoglycemia 11/02/17 20:00 12/02/17 19:59 Furosemide (Lasix) 40 mg DAILY ORAL 11/03/17 09:00 12/01/17 08:59 11/03/17 08:43 Heparin Sodium (Porcine) (Heparin 5000 units/ml) 5,000 units EVERY 8 HOURS SUBQ 11/02/17 22:00 11/30/17 21:59 11/03/17 06:22 Hydralazine HCl (Apresoline) 50 mg Q12HR ORAL 11/02/17 21:00 12/01/17 08:59 11/03/17 08:45 Insulin Aspart (NovoLOG) BEFORE MEALS AND HS SUBQ 11/02/17 21:00 11/30/17 17:29 11/03/17 06:21 Morphine Sulfate (Morphine Sulfate) 2 mg Q4H PRN IVP Severe Pain (Pain Scale 7-10) 11/02/17 20:15 11/07/17 16:14 11/03/17 02:23 Nitroglycerin (Ntg) 0.4 mg Q5MIN X 3 DOSES PRN SL Prn Chest Pain 11/02/17 19:00 11/30/17 16:29 Ondansetron HCl (Zofran) 4 mg Q6H PRN IVP Nausea & Vomiting 11/02/17 20:00 11/30/17 19:59 Pantoprazole (Protonix) 40 mg DAILY ORAL 11/03/17 09:00 12/01/17 08:59 11/03/17 08:43 Polyethylene Glycol (Miralax) 17 gm DAILYPRN PRN ORAL Constipation 11/02/17 20:00 12/02/17 19:59 Temazepam (Restoril) 15 mg HSPRN PRN ORAL Insomnia 11/02/17 21:00 11/07/17 20:59 Aguiar ([facility]),Rach WRIGHT Nov 03, 2017 12:34
--- NOTE | 2017-11-03 13:55 | Internal Med Progress Note ---
Subjective Date of Service: Nov 03, 2017 Physician Name Juarez Mcfadden Attending Physician Primo Strauss MD Current Medications Medications (Trade) Dose Ordered Sig/Oanh Route PRN Reason Start Time Stop Time Status Last Admin Dose Admin Acetaminophen (Tylenol) 650 mg Q4H PRN ORAL T>100.5 11/02/17 20:00 12/02/17 19:59 Acetaminophen/ Hydrocodone Bitart ([place] 5/325) 1 tab Q4H PRN ORAL Moderate Pain (Pain Scale 4-6) 11/03/17 12:30 11/10/17 12:29 Albuterol/ Ipratropium (Albuterol/ Ipratropium) 3 ml Q4H PRN HHN Shortness of Breath 11/02/17 20:15 11/05/17 16:14 Amlodipine Besylate (Norvasc) 10 mg DAILY ORAL 11/03/17 09:00 12/01/17 08:59 11/03/17 08:42 Aspirin (ASA) 162 mg DAILY ORAL 11/03/17 09:00 12/01/17 08:59 11/03/17 08:42 Carvedilol (Coreg) 12.5 mg Q12HR ORAL 11/02/17 21:00 12/01/17 08:59 11/03/17 08:43 Dextrose (Dextrose 50%) STAT PRN IV Hypoglycemia 11/02/17 20:00 12/02/17 19:59 Furosemide (Lasix) 40 mg DAILY ORAL 11/03/17 09:00 12/01/17 08:59 11/03/17 08:43 Heparin Sodium (Porcine) (Heparin 5000 units/ml) 5,000 units EVERY 8 HOURS SUBQ 11/02/17 22:00 11/30/17 21:59 11/03/17 06:22 Hydralazine HCl (Apresoline) 50 mg Q12HR ORAL 11/02/17 21:00 12/01/17 08:59 11/03/17 08:45 Insulin Aspart (NovoLOG) BEFORE MEALS AND HS SUBQ 11/02/17 21:00 11/30/17 17:29 11/03/17 13:04 Morphine Sulfate (Morphine Sulfate) 2 mg Q4H PRN IVP Severe Pain (Pain Scale 7-10) 11/02/17 20:15 11/07/17 16:14 11/03/17 02:23 Nitroglycerin (Ntg) 0.4 mg Q5MIN X 3 DOSES PRN SL Prn Chest Pain 11/02/17 19:00 11/30/17 16:29 Ondansetron HCl (Zofran) 4 mg Q6H PRN IVP Nausea & Vomiting 11/02/17 20:00 11/30/17 19:59 Pantoprazole (Protonix) 40 mg DAILY ORAL 11/03/17 09:00 12/01/17 08:59 11/03/17 08:43 Polyethylene Glycol (Miralax) 17 gm DAILYPRN PRN ORAL Constipation 11/02/17 20:00 12/02/17 19:59 Temazepam (Restoril) 15 mg HSPRN PRN ORAL Insomnia 11/02/17 21:00 11/07/17 20:59 Allergies: Coded Allergies: No Known Allergies (Verified , 01/17/12) ROS Limited/Unobtainable: No Constitutional: Reports: no symptoms HEENT: Reports: no symptoms Cardiovascular: Reports: no symptoms Respiratory: Reports: no symptoms Gastrointestinal/Abdominal: Reports: no symptoms Genitourinary: Reports: no symptoms Neurologic/Psychiatric: Reports: no symptoms Subjective 62 YO M admitted with chest pain. Cover for Int Brent-Dr Strauss. Objective Last Vital Signs Date Time Temp Pulse Resp B/P (MAP) Pulse Ox O2 Delivery O2 Flow Rate FiO2 11/03/17 11:32 98.0 74 20 163/84 99 Room Air 11/03/17 07:46 2.0 28 Laboratory Tests Test 11/03/17 06:34 White Blood Count 5.5 K/UL (4.8-10.8) Red Blood Count 4.27 M/UL (4.70-6.10) L Hemoglobin 10.9 G/DL (14.2-18.0) L Hematocrit 35.9 % (42.0-52.0) L Mean Corpuscular Volume 84 FL (80-99) Mean Corpuscular Hemoglobin 25.5 PG (27.0-31.0) L Mean Corpuscular Hemoglobin Concent 30.3 G/DL (32.0-36.0) L Red Cell Distribution Width 15.4 % (11.6-14.8) H Platelet Count 162 K/UL (150-450) Mean Platelet Volume 10.1 FL (6.5-10.1) Neutrophils (%) (Auto) 56.8 % (45.0-75.0) Lymphocytes (%) (Auto) 24.9 % (20.0-45.0) Monocytes (%) (Auto) 12.1 % (1.0-10.0) H Eosinophils (%) (Auto) 3.4 % (0.0-3.0) H Basophils (%) (Auto) 2.8 % (0.0-2.0) H Troponin I 0.006 ng/mL (0.000-0.056) Intake and Output 11/02/17 11/03/17 19:00 07:00 Intake Total 300 ml Balance 300 ml Intake Oral 300 ml # Voids 3 # Bowel Movements 1 Objective General Appearance: no apparent distress, alert, obese EENT: PERRL/EOMI, normal ENT inspection Neck: non-tender, normal alignment, supple, normal inspection Cardiovascular: normal peripheral pulses, normal rate, regular rhythm, no gallop/murmur, no JVD Respiratory/Chest: chest wall non-tender, lungs clear, normal breath sounds, no respiratory distress, no accessory muscle use Abdomen: normal bowel sounds, non tender, soft, no organomegaly, no mass Extremities: other - left shoulder pain Edema: trace edema Neurologic: snowboard instructor II-XII grossly normal, no motor/sensory deficits Skin: normal pigmentation, warm/dry Assessment/Plan Problem List: (1) Chest pain Assessment & Plan: Non cardiac-referred Left shoulder pain. See cardiology note-Dr Nguyễn (2) Shoulder pain, left Assessment & Plan: X-Ray=no acute fractrue. Await MRI (3) SOB (shortness of breath) (4) Diabetes mellitus, type II Assessment & Plan: Continue novolog sliding scale. (5) Acute on chronic renal failure Assessment & Plan: See renal note-Dr Templeton (6) Accelerated hypertension Assessment & Plan: Continue coreg, cardizem, vasotec and norvasc. (7) PEPE (obstructive sleep apnea) Assessment & Plan: On CPAP (8) Obesity (BMI 35.0-39.9 without comorbidity) (9) COPD (chronic obstructive pulmonary disease) Status: not improved JUAREZ MCFADDEN Nov 03, 2017 13:55
[2017-11-03 16:00] VITALS: BP 159/86
--- NOTE | 2017-11-03 16:46 | Cardiology Progress Note ---
Assessment/Plan Assessment/Plan 1. Most likely noncardiac chest pain, as the left pericardial pain occurred after his fall and trauma to the chest wall, continue nonsteroidal anti- inflammatory drugs, but cautious with creat. It is contraindicated in the presence of chronic kidney disease. A 2D echocardiography does not show any evidence of wall motion abnormalities. Acute myocardial infarction is ruled out. No further ischemic workup is warranted at this time. 2. Hypertensive heart disease with normal left ventricular systolic function, blood pressure stage III require to be aggressive and control of blood pressure in this patient. 3. Chronic kidney disease. 4. Diabetes mellitus, require to be on aspirin and statins. 5. Lower extremity edema, could be a combination of chronic kidney disease and possible diastolic dysfunction. Subjective Subjective Transferred to the non-tele bed. The patient is not attached to the monitor. Objective Last 24 Hour Vital Signs Date Time Temp Pulse Resp B/P (MAP) Pulse Ox O2 Delivery O2 Flow Rate FiO2 11/03/17 16:00 98.1 73 21 159/86 98 Room Air 11/03/17 11:32 98.0 74 20 163/84 99 Room Air 11/03/17 08:45 166/90 11/03/17 08:43 74 166/90 11/03/17 08:42 74 166/90 11/03/17 08:00 98.0 74 22 166/90 96 Room Air 11/03/17 07:46 98 Nasal Cannula 2.0 28 11/03/17 07:46 Nasal Cannula 2.0 28 11/03/17 04:00 97.0 67 20 155/76 100 Bi-pap 11/03/17 03:02 88 17 97 Facial 30 11/03/17 01:17 86 17 97 Facial 30 11/02/17 23:30 84 17 97 Facial 2.0 28 11/02/17 21:37 97 Nasal Cannula 2.0 28 11/02/17 21:37 Nasal Cannula 2.0 28 11/02/17 21:04 83 141/80 11/02/17 21:02 141/80 11/02/17 20:34 Nasal Cannula 2.0 11/02/17 20:33 98.5 83 17 141/80 97 Intake and Output 11/02/17 11/03/17 19:00 07:00 Intake Total 300 ml Balance 300 ml Intake Oral 300 ml # Voids 3 # Bowel Movements 1 2D Echo: LVEF 55%, Mild LVH/LAE, Mild MR/AR, RVSP 30 mmHg Laboratory Tests Test 11/03/17 06:34 White Blood Count 5.5 K/UL (4.8-10.8) Red Blood Count 4.27 M/UL (4.70-6.10) L Hemoglobin 10.9 G/DL (14.2-18.0) L Hematocrit 35.9 % (42.0-52.0) L Mean Corpuscular Volume 84 FL (80-99) Mean Corpuscular Hemoglobin 25.5 PG (27.0-31.0) L Mean Corpuscular Hemoglobin Concent 30.3 G/DL (32.0-36.0) L Red Cell Distribution Width 15.4 % (11.6-14.8) H Platelet Count 162 K/UL (150-450) Mean Platelet Volume 10.1 FL (6.5-10.1) Neutrophils (%) (Auto) 56.8 % (45.0-75.0) Lymphocytes (%) (Auto) 24.9 % (20.0-45.0) Monocytes (%) (Auto) 12.1 % (1.0-10.0) H Eosinophils (%) (Auto) 3.4 % (0.0-3.0) H Basophils (%) (Auto) 2.8 % (0.0-2.0) H Troponin I 0.006 ng/mL (0.000-0.056) Objective GENERAL: The patient is a very pleasant 62-year-old gentleman, who is in no apparent respiratory distress. Alert and oriented x4. HEENT: Atraumatic and normocephalic. Anicteric. Pupils are equal, round, and reactive to light and accommodation. Extraocular muscles intact. NECK: JVP less than 5 cm. No carotid bruit. Carotid upstrokes 2+ bilaterally. CARDIOVASCULAR: Normal S1, S2. Regular rate and rhythm. No murmurs, gallops, or rubs. LUNGS: Clear to auscultation bilaterally. ABDOMEN: Soft, nontender, and nondistended. No hepatosplenomegaly. Positive bowel sounds. EXTREMITIES: There is 1 to 2+ bilateral lower extremity edema. KATELYN BOBBY Nov 03, 2017 16:46
[2017-11-03 20:03] VITALS: BP 187/98
--- NOTE | 2017-11-03 20:50 | Nephrology Progress Note ---
Assessment/Plan Assessment 1. Acute on chronic renal failure. . 2. History of gout. 3. Diabetes. 4. Morbid obesity. Plan plan hold enalapril monitoring renal function avoid NSAID replace electrolyte as need it daily wt monitoring in and out put Subjective Constitutional: Reports: no symptoms HEENT: Reports: no symptoms Genitourinary: Reports: no symptoms Neurologic/Psychiatric: Reports: no symptoms Subjective alert and awake feeling less sob no other complaints Objective Objective Last 24 Hour Vital Signs Date Time Temp Pulse Resp B/P (MAP) Pulse Ox O2 Delivery O2 Flow Rate FiO2 11/03/17 20:33 187/98 11/03/17 20:33 77 187/98 11/03/17 20:03 98.3 77 19 187/98 99 11/03/17 16:00 98.1 73 21 159/86 98 Room Air 11/03/17 11:32 98.0 74 20 163/84 99 Room Air 11/03/17 08:45 166/90 11/03/17 08:43 74 166/90 11/03/17 08:42 74 166/90 11/03/17 08:00 98.0 74 22 166/90 96 Room Air 11/03/17 07:46 98 Nasal Cannula 2.0 28 11/03/17 07:46 Nasal Cannula 2.0 28 11/03/17 04:00 97.0 67 20 155/76 100 Bi-pap 11/03/17 03:02 88 17 97 Facial 30 11/03/17 01:17 86 17 97 Facial 30 11/02/17 23:30 84 17 97 Facial 2.0 28 11/02/17 21:37 97 Nasal Cannula 2.0 28 11/02/17 21:37 Nasal Cannula 2.0 28 11/02/17 21:04 83 141/80 11/02/17 21:02 141/80 Intake and Output 11/02/17 11/03/17 19:00 07:00 Intake Total 300 ml Balance 300 ml Intake Oral 300 ml # Voids 3 # Bowel Movements 1 Laboratory Tests 11/03/17 06:34: White Blood Count 5.5, Red Blood Count 4.27L, Hemoglobin 10.9L, Hematocrit 35.9L , Mean Corpuscular Volume 84, Mean Corpuscular Hemoglobin 25.5L, Mean Corpuscular Hemoglobin Concent 30.3L, Red Cell Distribution Width 15.4H, Platelet Count 162, Mean Platelet Volume 10.1, Neutrophils (%) (Auto) 56.8, Lymphocytes (%) (Auto) 24.9, Monocytes (%) (Auto) 12.1H, Eosinophils (%) (Auto) 3.4H, Basophils (%) (Auto) 2.8H, Troponin I 0.006 Height (Feet): 5 Height (Inches): 7.00 Weight (Pounds): 290 Objective HEAD AND NECK: No JVP. No LAD. No thyromegaly. Extraocular movements intact. Pupils are reactive to light and accommodation. LUNGS: Decreased breathing sounds on both sides. CARDIAC: Regular rate and rhythm. S1 and S2. No murmur. No rub. ABDOMEN: Obese, nontender, and nondistended. EXTREMITIES: Trace edema. No clubbing. No cyanosis. CONOR MCKINNEY Nov 03, 2017 20:50
[2017-11-04 00:04] VITALS: BP 170/82
[2017-11-04 04:13] VITALS: BP 152/84
[2017-11-04] MEDS: Heparin 5000 units/ml inj SUBQ SCH ×2 (06:29→14:23)
[2017-11-04] MEDS: NovoLOG Insulin Flexpen SUBQ SCH ×3 (06:30→16:30)
[2017-11-04 07:22] LABS: ANION GAP 7 mmol/L (5-15); BLOOD UREA NITROGEN 37 mg/dL (7-18); CALCIUM 8.6 MG/DL (8.5-10.1); CARBON DIOXIDE 29 MMOL/L (21-32); CHLORIDE 105 MMOL/L (98-107); CREATININE 2.8 MG/DL (0.55-1.30); POTASSIUM 3.8 MMOL/L (3.5-5.1); SODIUM 141 MMOL/L (136-145)
[2017-11-04 07:23] LABS: BASOPHILS % (AUTO) 2.5 % (0.0-2.0); EOSINOPHILS % (AUTO) 3.7 % (0.0-3.0); HEMATOCRIT 37.1 % (42.0-52.0); HEMOGLOBIN 11.1 G/DL (14.2-18.0); LYMPHOCYTES % (AUTO) 23.1 % (20.0-45.0); MEAN CORPUSCULAR VOLUME 84 FL (80-99); MONOCYTES % (AUTO) 12.4 % (1.0-10.0); NEUTROPHILS % (AUTO) 58.3 % (45.0-75.0); PLATELET COUNT 174 K/UL (150-450); RED BLOOD COUNT 4.41 M/UL (4.70-6.10); RED CELL DISTRIBUTION WIDTH 15.2 % (11.6-14.8); WHITE BLOOD COUNT 5.5 K/UL (4.8-10.8)
[2017-11-04 08:00] VITALS: BP 169/97
--- NOTE | 2017-11-04 08:21 | Nephrology Progress Note ---
Assessment/Plan Assessment 1. Acute on chronic renal failure stable at this time 2. History of gout. 3. Diabetes. 4. Morbid obesity. Plan plan hold enalapril monitoring renal function avoid NSAID replace electrolyte as need it daily wt monitoring in and out put Subjective Constitutional: Reports: no symptoms HEENT: Reports: no symptoms Genitourinary: Reports: no symptoms Neurologic/Psychiatric: Reports: no symptoms Subjective alert and awake feeling less sob no other complaints found to have elevated bp this morning Objective Objective Last 24 Hour Vital Signs Date Time Temp Pulse Resp B/P (MAP) Pulse Ox O2 Delivery O2 Flow Rate FiO2 11/04/17 05:55 79 16 99 Facial 30 11/04/17 04:14 Nasal Cannula 2.0 11/04/17 04:13 98.4 70 19 152/84 100 11/04/17 03:52 81 17 98 Facial 30 11/04/17 00:45 89 17 97 Facial 30 11/04/17 00:05 Bi-pap 11/04/17 00:04 98.3 75 20 170/82 100 11/03/17 23:14 82 16 98 Facial 30 11/03/17 20:33 187/98 11/03/17 20:33 77 187/98 11/03/17 20:04 Nasal Cannula 2.0 11/03/17 20:03 98.3 77 19 187/98 99 11/03/17 19:20 Nasal Cannula 2.0 28 11/03/17 19:20 93 Nasal Cannula 2.0 28 11/03/17 16:00 98.1 73 21 159/86 98 Room Air 11/03/17 11:32 98.0 74 20 163/84 99 Room Air 11/03/17 08:45 166/90 11/03/17 08:43 74 166/90 11/03/17 08:42 74 166/90 Intake and Output 11/03/17 11/04/17 19:00 07:00 Intake Total 600 ml 360 ml Balance 600 ml 360 ml Intake Oral 600 ml 360 ml # Voids 3 2 Laboratory Tests 11/04/17 06:30: White Blood Count 5.5, Red Blood Count 4.41L, Hemoglobin 11.1L, Hematocrit 37.1L , Mean Corpuscular Volume 84, Mean Corpuscular Hemoglobin 25.2L, Mean Corpuscular Hemoglobin Concent 30.0L, Red Cell Distribution Width 15.2H, Platelet Count 174, Mean Platelet Volume 10.7H, Neutrophils (%) (Auto) 58.3, Lymphocytes (%) (Auto) 23.1, Monocytes (%) (Auto) 12.4H, Eosinophils (%) (Auto) 3.7H, Basophils (%) (Auto) 2.5H, Sodium Level 141, Potassium Level 3.8, Chloride Level 105, Carbon Dioxide Level 29, Anion Gap 7, Blood Urea Nitrogen 37H, Creatinine 2.8H, Estimat Glomerular Filtration Rate 28.1, Glucose Level 114H, Calcium Level 8.6 Height (Feet): 5 Height (Inches): 7.00 Weight (Pounds): 296 Objective HEAD AND NECK: No JVP. No LAD. No thyromegaly. Extraocular movements intact. Pupils are reactive to light and accommodation. LUNGS: Decreased breathing sounds on both sides. CARDIAC: Regular rate and rhythm. S1 and S2. No murmur. No rub. ABDOMEN: Obese, nontender, and nondistended. EXTREMITIES: Trace edema. No clubbing. No cyanosis. CONOR MCKINNEY Nov 04, 2017 08:21
[2017-11-04] MEDS: Aspirin Baby 81mg ORAL SCH (10:40)
[2017-11-04] MEDS: HydrALAZINE 50mg tab ORAL SCH (10:40)
[2017-11-04] MEDS: Carvedilol 12.5mg tab ORAL SCH (10:40)
[2017-11-04] MEDS: Furosemide 40mg tab ORAL SCH (10:41)
[2017-11-04 12:00] VITALS: BP 149/81
--- NOTE | 2017-11-04 12:01 | Internal Med Progress Note ---
Subjective Date of Service: Nov 04, 2017 Physician Name Juarez Mcfadden Attending Physician Primo Strauss MD Current Medications Medications (Trade) Dose Ordered Sig/Oanh Route PRN Reason Start Time Stop Time Status Last Admin Dose Admin Acetaminophen (Tylenol) 650 mg Q4H PRN ORAL T>100.5 11/02/17 20:00 12/02/17 19:59 Acetaminophen/ Hydrocodone Bitart ([place] 5/325) 1 tab Q4H PRN ORAL Moderate Pain (Pain Scale 4-6) 11/03/17 12:30 11/10/17 12:29 Albuterol/ Ipratropium (Albuterol/ Ipratropium) 3 ml Q4H PRN HHN Shortness of Breath 11/02/17 20:15 11/05/17 16:14 Amlodipine Besylate (Norvasc) 10 mg DAILY ORAL 11/03/17 09:00 12/01/17 08:59 11/04/17 10:40 Aspirin (ASA) 162 mg DAILY ORAL 11/03/17 09:00 12/01/17 08:59 11/04/17 10:40 Carvedilol (Coreg) 12.5 mg Q12HR ORAL 11/02/17 21:00 12/01/17 08:59 11/04/17 10:40 Dextrose (Dextrose 50%) STAT PRN IV Hypoglycemia 11/02/17 20:00 12/02/17 19:59 Furosemide (Lasix) 40 mg DAILY ORAL 11/03/17 09:00 12/01/17 08:59 11/04/17 10:41 Heparin Sodium (Porcine) (Heparin 5000 units/ml) 5,000 units EVERY 8 HOURS SUBQ 11/02/17 22:00 11/30/17 21:59 11/04/17 06:29 Hydralazine HCl (Apresoline) 50 mg Q12HR ORAL 11/02/17 21:00 12/01/17 08:59 11/04/17 10:40 Insulin Aspart (NovoLOG) BEFORE MEALS AND HS SUBQ 11/02/17 21:00 11/30/17 17:29 11/04/17 06:30 Morphine Sulfate (Morphine Sulfate) 2 mg Q4H PRN IVP Severe Pain (Pain Scale 7-10) 11/02/17 20:15 11/07/17 16:14 11/03/17 02:23 Nitroglycerin (Ntg) 0.4 mg Q5MIN X 3 DOSES PRN SL Prn Chest Pain 11/02/17 19:00 11/30/17 16:29 Ondansetron HCl (Zofran) 4 mg Q6H PRN IVP Nausea & Vomiting 11/02/17 20:00 11/30/17 19:59 Pantoprazole (Protonix) 40 mg DAILY ORAL 11/03/17 09:00 12/01/17 08:59 11/04/17 10:41 Polyethylene Glycol (Miralax) 17 gm DAILYPRN PRN ORAL Constipation 11/02/17 20:00 12/02/17 19:59 Temazepam (Restoril) 15 mg HSPRN PRN ORAL Insomnia 11/02/17 21:00 11/07/17 20:59 Allergies: Coded Allergies: No Known Allergies (Verified , 01/17/12) ROS Limited/Unobtainable: No Constitutional: Reports: no symptoms HEENT: Reports: no symptoms Cardiovascular: Reports: no symptoms Respiratory: Reports: no symptoms Gastrointestinal/Abdominal: Reports: no symptoms Genitourinary: Reports: no symptoms Neurologic/Psychiatric: Reports: no symptoms Subjective 62 YO M admitted with chest pain. Await MRI left shoulder. Cover for Int Brent- Dr Strauss. Objective Last Vital Signs Date Time Temp Pulse Resp B/P (MAP) Pulse Ox O2 Delivery O2 Flow Rate FiO2 11/04/17 10:40 169/97 11/04/17 10:40 78 11/04/17 08:00 98.0 17 96 11/04/17 07:47 Nasal Cannula 2.0 28 Laboratory Tests Test 11/04/17 06:30 White Blood Count 5.5 K/UL (4.8-10.8) Red Blood Count 4.41 M/UL (4.70-6.10) L Hemoglobin 11.1 G/DL (14.2-18.0) L Hematocrit 37.1 % (42.0-52.0) L Mean Corpuscular Volume 84 FL (80-99) Mean Corpuscular Hemoglobin 25.2 PG (27.0-31.0) L Mean Corpuscular Hemoglobin Concent 30.0 G/DL (32.0-36.0) L Red Cell Distribution Width 15.2 % (11.6-14.8) H Platelet Count 174 K/UL (150-450) Mean Platelet Volume 10.7 FL (6.5-10.1) H Neutrophils (%) (Auto) 58.3 % (45.0-75.0) Lymphocytes (%) (Auto) 23.1 % (20.0-45.0) Monocytes (%) (Auto) 12.4 % (1.0-10.0) H Eosinophils (%) (Auto) 3.7 % (0.0-3.0) H Basophils (%) (Auto) 2.5 % (0.0-2.0) H Sodium Level 141 MMOL/L (136-145) Potassium Level 3.8 MMOL/L (3.5-5.1) Chloride Level 105 MMOL/L (98-107) Carbon Dioxide Level 29 MMOL/L (21-32) Anion Gap 7 mmol/L (5-15) Blood Urea Nitrogen 37 mg/dL (7-18) H Creatinine 2.8 MG/DL (0.55-1.30) H Estimat Glomerular Filtration Rate 28.1 mL/min (>60) Glucose Level 114 MG/DL (74-106) H Calcium Level 8.6 MG/DL (8.5-10.1) Intake and Output 11/03/17 11/04/17 19:00 07:00 Intake Total 600 ml 360 ml Balance 600 ml 360 ml Intake Oral 600 ml 360 ml # Voids 3 2 Objective General Appearance: no apparent distress, alert, obese EENT: PERRL/EOMI, normal ENT inspection Neck: non-tender, normal alignment, supple, normal inspection Cardiovascular: normal peripheral pulses, normal rate, regular rhythm, no gallop/murmur, no JVD Respiratory/Chest: chest wall non-tender, lungs clear, normal breath sounds, no respiratory distress, no accessory muscle use Abdomen: normal bowel sounds, non tender, soft, no organomegaly, no mass Extremities: other - left shoulder pain Edema: trace edema Neurologic: radio time buyer II-XII grossly normal, no motor/sensory deficits Skin: normal pigmentation, warm/dry Assessment/Plan Problem List: (1) Chest pain Assessment & Plan: Non cardiac-referred Left shoulder pain. See cardiology note-Dr Nguyễn (2) Shoulder pain, left Assessment & Plan: X-Ray=no acute fractrue. Await MRI (3) SOB (shortness of breath) (4) Diabetes mellitus, type II Assessment & Plan: Continue novolog sliding scale. (5) Acute on chronic renal failure Assessment & Plan: See renal note-Dr Templeton (6) Accelerated hypertension Assessment & Plan: Continue coreg, cardizem, vasotec and norvasc. (7) PEPE (obstructive sleep apnea) Assessment & Plan: On CPAP (8) Obesity (BMI 35.0-39.9 without comorbidity) (9) COPD (chronic obstructive pulmonary disease) Status: stable JUAREZ MCFADDEN Nov 04, 2017 12:01
--- NOTE | 2017-11-04 14:58 | Pulmonology Progress Note ---
Assessment/Plan Problems: (1) SOB (shortness of breath) (2) Dyspnea (3) Chest pain (4) HTN (hypertension) (5) CKD (chronic kidney disease) (6) PEPE (obstructive sleep apnea) Assessment/Plan improivng less cough bipap at night titrate fio2 check pulse oximeter dc planning pain management. Subjective ROS Limited/Unobtainable: No Constitutional: Reports: no symptoms HEENT: Repors: no symptoms Respiratory: Reports: no symptoms Allergies: Coded Allergies: No Known Allergies (Verified , 01/17/12) Objective Last 24 Hour Vital Signs Date Time Temp Pulse Resp B/P (MAP) Pulse Ox O2 Delivery O2 Flow Rate FiO2 11/04/17 12:00 Nasal Cannula 2.0 11/04/17 12:00 97.7 74 19 149/81 96 11/04/17 10:40 169/97 11/04/17 10:40 78 169/97 11/04/17 10:40 78 169/97 11/04/17 08:00 Nasal Cannula 2.0 11/04/17 08:00 98.0 78 17 169/97 96 11/04/17 07:47 Nasal Cannula 2.0 28 11/04/17 07:47 100 Nasal Cannula 2.0 28 11/04/17 05:55 79 16 99 Facial 30 11/04/17 04:14 Nasal Cannula 2.0 11/04/17 04:13 98.4 70 19 152/84 100 11/04/17 03:52 81 17 98 Facial 30 11/04/17 00:45 89 17 97 Facial 30 11/04/17 00:05 Bi-pap 11/04/17 00:04 98.3 75 20 170/82 100 11/03/17 23:14 82 16 98 Facial 30 11/03/17 20:33 187/98 11/03/17 20:33 77 187/98 11/03/17 20:04 Nasal Cannula 2.0 11/03/17 20:03 98.3 77 19 187/98 99 11/03/17 19:20 Nasal Cannula 2.0 28 11/03/17 19:20 93 Nasal Cannula 2.0 28 11/03/17 16:00 98.1 73 21 159/86 98 Room Air Intake and Output 11/03/17 11/04/17 19:00 07:00 Intake Total 600 ml 360 ml Balance 600 ml 360 ml Intake Oral 600 ml 360 ml # Voids 3 2 Objective General Appearance: no acute distress, other - A/A/O x 3 morbidly obese AA male in NAD HEENT: normocephalic, atraumatic, anicteric, mucous membranes moist Respiratory/Chest: lungs clear -with moderate air exchange no respiratory distress, no accessory muscle use Cardiovascular: normal rate Abdomen: normal bowel sounds, soft, non tender , obese Extremities: pedal pulses normal, other - +1 edema BLE Neurologic/Psychiatric: no motor/sensory deficits, alert, oriented x 3, responsive Musculoskeletal: normal muscle bulk Laboratory Tests 11/04/17 06:30: White Blood Count 5.5, Red Blood Count 4.41L, Hemoglobin 11.1L, Hematocrit 37.1L , Mean Corpuscular Volume 84, Mean Corpuscular Hemoglobin 25.2L, Mean Corpuscular Hemoglobin Concent 30.0L, Red Cell Distribution Width 15.2H, Platelet Count 174, Mean Platelet Volume 10.7H, Neutrophils (%) (Auto) 58.3, Lymphocytes (%) (Auto) 23.1, Monocytes (%) (Auto) 12.4H, Eosinophils (%) (Auto) 3.7H, Basophils (%) (Auto) 2.5H, Sodium Level 141, Potassium Level 3.8, Chloride Level 105, Carbon Dioxide Level 29, Anion Gap 7, Blood Urea Nitrogen 37H, Creatinine 2.8H, Estimat Glomerular Filtration Rate 28.1, Glucose Level 114H, Calcium Level 8.6 Current Medications Medications (Trade) Dose Ordered Sig/Oanh Route PRN Reason Start Time Stop Time Status Last Admin Dose Admin Acetaminophen (Tylenol) 650 mg Q4H PRN ORAL T>100.5 11/02/17 20:00 12/02/17 19:59 Acetaminophen/ Hydrocodone Bitart ([place] 5/325) 1 tab Q4H PRN ORAL Moderate Pain (Pain Scale 4-6) 11/03/17 12:30 11/10/17 12:29 Albuterol/ Ipratropium (Albuterol/ Ipratropium) 3 ml Q4H PRN HHN Shortness of Breath 11/02/17 20:15 11/05/17 16:14 Amlodipine Besylate (Norvasc) 10 mg DAILY ORAL 11/03/17 09:00 12/01/17 08:59 11/04/17 10:40 Aspirin (ASA) 162 mg DAILY ORAL 11/03/17 09:00 12/01/17 08:59 11/04/17 10:40 Carvedilol (Coreg) 12.5 mg Q12HR ORAL 11/02/17 21:00 12/01/17 08:59 11/04/17 10:40 Dextrose (Dextrose 50%) STAT PRN IV Hypoglycemia 11/02/17 20:00 12/02/17 19:59 Furosemide (Lasix) 40 mg DAILY ORAL 11/03/17 09:00 12/01/17 08:59 11/04/17 10:41 Heparin Sodium (Porcine) (Heparin 5000 units/ml) 5,000 units EVERY 8 HOURS SUBQ 11/02/17 22:00 11/30/17 21:59 11/04/17 14:23 Hydralazine HCl (Apresoline) 50 mg Q12HR ORAL 11/02/17 21:00 12/01/17 08:59 11/04/17 10:40 Insulin Aspart (NovoLOG) BEFORE MEALS AND HS SUBQ 11/02/17 21:00 11/30/17 17:29 11/04/17 06:30 Morphine Sulfate (Morphine Sulfate) 2 mg Q4H PRN IVP Severe Pain (Pain Scale 7-10) 11/02/17 20:15 11/07/17 16:14 11/03/17 02:23 Nitroglycerin (Ntg) 0.4 mg Q5MIN X 3 DOSES PRN SL Prn Chest Pain 11/02/17 19:00 11/30/17 16:29 Ondansetron HCl (Zofran) 4 mg Q6H PRN IVP Nausea & Vomiting 11/02/17 20:00 11/30/17 19:59 Pantoprazole (Protonix) 40 mg DAILY ORAL 11/03/17 09:00 12/01/17 08:59 11/04/17 10:41 Polyethylene Glycol (Miralax) 17 gm DAILYPRN PRN ORAL Constipation 11/02/17 20:00 12/02/17 19:59 Temazepam (Restoril) 15 mg HSPRN PRN ORAL Insomnia 11/02/17 21:00 11/07/17 20:59 NIELS LEE Nov 04, 2017 14:58
--- NOTE | 2017-11-04 15:07 | Diagnostic Imaging Report ---
Indication: Shortness of breath Technique: XRAY Chest 1v Comparison: 10/31/2017 Findings: Stable cardiomegaly. There is mild interstitial prominence/edema. There is no definite focal airspace consolidation. No pleural effusion or pneumothorax. No acute osseous abnormality seen. Impression: Cardiomegaly and unchanged interstitial prominence/mild interstitial edema. No focal airspace consolidation.
[2017-11-04 16:00] VITALS: BP 137/80
--- NOTE | 2017-11-04 18:23 | Cardiology Progress Note ---
Assessment/Plan Assessment/Plan 1. Most likely noncardiac chest pain, as the left pericardial pain occurred after his fall and trauma to the chest wall, 2D echocardiography does not show any evidence of wall motion abnormalities. Acute myocardial infarction is ruled out. No further ischemic workup is warranted at this time. 2. Hypertensive heart disease with normal left ventricular systolic function, blood pressure stage I, require to be aggressive in controlling his blood pressure. 3. Chronic kidney disease. 4. Diabetes mellitus, require to be on aspirin and statins. 5. Lower extremity edema, could be a combination of chronic kidney disease and possible diastolic dysfunction. Subjective Subjective No cardiac events. Denies chest pain or SOB. Objective Last 24 Hour Vital Signs Date Time Temp Pulse Resp B/P (MAP) Pulse Ox O2 Delivery O2 Flow Rate FiO2 11/04/17 16:00 97.2 69 18 137/80 98 11/04/17 12:00 Nasal Cannula 2.0 11/04/17 12:00 97.7 74 19 149/81 96 11/04/17 10:40 169/97 11/04/17 10:40 78 169/97 11/04/17 10:40 78 169/97 11/04/17 08:00 Nasal Cannula 2.0 11/04/17 08:00 98.0 78 17 169/97 96 11/04/17 07:47 Nasal Cannula 2.0 28 11/04/17 07:47 100 Nasal Cannula 2.0 28 11/04/17 05:55 79 16 99 Facial 30 11/04/17 04:14 Nasal Cannula 2.0 11/04/17 04:13 98.4 70 19 152/84 100 11/04/17 03:52 81 17 98 Facial 30 11/04/17 00:45 89 17 97 Facial 30 11/04/17 00:05 Bi-pap 11/04/17 00:04 98.3 75 20 170/82 100 11/03/17 23:14 82 16 98 Facial 30 11/03/17 20:33 187/98 11/03/17 20:33 77 187/98 11/03/17 20:04 Nasal Cannula 2.0 11/03/17 20:03 98.3 77 19 187/98 99 11/03/17 19:20 Nasal Cannula 2.0 28 11/03/17 19:20 93 Nasal Cannula 2.0 28 Intake and Output 11/03/17 11/04/17 19:00 07:00 Intake Total 600 ml 360 ml Balance 600 ml 360 ml Intake Oral 600 ml 360 ml # Voids 3 2 2D Echo: LVEF 55%, Mild LVH/LAE, Mild MR/AR, RVSP 30 mmHg Laboratory Tests Test 11/04/17 06:30 White Blood Count 5.5 K/UL (4.8-10.8) Red Blood Count 4.41 M/UL (4.70-6.10) L Hemoglobin 11.1 G/DL (14.2-18.0) L Hematocrit 37.1 % (42.0-52.0) L Mean Corpuscular Volume 84 FL (80-99) Mean Corpuscular Hemoglobin 25.2 PG (27.0-31.0) L Mean Corpuscular Hemoglobin Concent 30.0 G/DL (32.0-36.0) L Red Cell Distribution Width 15.2 % (11.6-14.8) H Platelet Count 174 K/UL (150-450) Mean Platelet Volume 10.7 FL (6.5-10.1) H Neutrophils (%) (Auto) 58.3 % (45.0-75.0) Lymphocytes (%) (Auto) 23.1 % (20.0-45.0) Monocytes (%) (Auto) 12.4 % (1.0-10.0) H Eosinophils (%) (Auto) 3.7 % (0.0-3.0) H Basophils (%) (Auto) 2.5 % (0.0-2.0) H Sodium Level 141 MMOL/L (136-145) Potassium Level 3.8 MMOL/L (3.5-5.1) Chloride Level 105 MMOL/L (98-107) Carbon Dioxide Level 29 MMOL/L (21-32) Anion Gap 7 mmol/L (5-15) Blood Urea Nitrogen 37 mg/dL (7-18) H Creatinine 2.8 MG/DL (0.55-1.30) H Estimat Glomerular Filtration Rate 28.1 mL/min (>60) Glucose Level 114 MG/DL (74-106) H Calcium Level 8.6 MG/DL (8.5-10.1) Objective GENERAL: The patient is a very pleasant 62-year-old gentleman, who is in no apparent respiratory distress. Alert and oriented x4. HEENT: Atraumatic and normocephalic. Anicteric. Pupils are equal, round, and reactive to light and accommodation. Extraocular muscles intact. NECK: JVP less than 5 cm. No carotid bruit. Carotid upstrokes 2+ bilaterally. CARDIOVASCULAR: Normal S1, S2. Regular rate and rhythm. No murmurs, gallops, or rubs. LUNGS: Clear to auscultation bilaterally. ABDOMEN: Soft, nontender, and nondistended. No hepatosplenomegaly. Positive bowel sounds. EXTREMITIES: There is 1 to 2+ bilateral lower extremity edema. KATELYN BOBBY Nov 04, 2017 18:23
[2017-11-04] MEDS ORDERED: Carvedilol 25mg Tab ORAL SCH (21:00)
[2017-11-05] MEDS ORDERED: HydrALAZINE 50mg tab ORAL SCH (09:00)
--- NOTE | 2017-11-06 17:00 | Discharge Summary 2 SIG ---
DATE OF ADMISSION: 10/31/2017 DATE OF DISCHARGE: 11/04/2017 REASON FOR ADMISSION: 62-year-old male with a history of hypertension and congestive heart failure, presented to emergency department with a complaint of chest pain for two days. Pain started when he was driving. Pain localized to substernal area without radiation to the back , but radiated down to his left arm. Pain was worse with any movement, sharp, and gradual in onset with multiple episodes, occurs both at rest and exertion. The patient reported shortness of breath, but no palpitations. No diaphoresis. No nausea or vomiting. No fever. No chills. No cough. The patient never had cardiac catheterization. he had stress test several years ago, which was negative. Upon presentation, blood pressure was elevated - 179/106. No hypoxia. The patient reported left shoulder pain secondary to fall. The patient remained hemodynamically stable. Aspirin was given. Chest pain improved. EKG revealed normal sinus rhythm with T-wave inversion in leads V5 and V6. No acute ischemic changes. Troponin negative -0.010. ProBNP 211. Chest x-ray revealed no acute cardiopulmonary pathology. No leukocytosis. Stable hemoglobin and hematocrit. Electrolytes essentially stable. Evidence of renal insufficiency with BUN -25 and creatinine -2.9. The patient was admitted with the diagnosis of atypical chest pain, possible acute coronary syndrome; diabetes mellitus type 2; chronic kidney disease; morbid obesity; obstructive sleep apnea; left shoulder pain, most likely ligament injury. HOSPITAL COURSE: The patient was admitted to telemetry floor. Cardiology, Pulmonology, and Nephrology consults were requested. Supplemental oxygen provided as needed to keep saturation above 92%. Chest x-ray revealed cardiomegaly and mild congestive heart failure. Serial troponin were negative. EKG revealed no ischemic changes. Bathhouse Keeper ruled out for acute myocardial infarction. Per Cardiology, the patient had atypical noncardiac chest pain, which started after fall, more like chest wall pain and left shoulder pain. Echocardiogram revealed preserved ejection fraction of 55% and right ventricular systolic pressure of 30 with moderate left ventricular hypertrophy. Venous duplex of bilateral lower extremities was negative. The patient was on DVT prophylaxis. Aspirin and statin were continued. Pain management provided. X-ray of the left shoulder revealed no evidence of acute fracture. Blood pressure was managed with calcium channel malcom, beta-malcom, and hydralazine, and remained stable. Low-dose oral Lasix was provided. Cardiorenal parameters, electrolytes, and volumes were closely monitored. Blood sugar was managed with sliding scale of insulin. Truck Crane Operator followed. Nephrotoxics were avoided. Renal ultrasound revealed a hypoechoic mass in the right kidney, cyst versus solid mass. Normal echogenicity bilaterally. No hydronephrosis. Further workup for hypoechoic mass could be done as outpatient. Renal failure likely chronic. Lower extremities edema was likely a combination of chronic kidney disease and probable diastolic dysfunction. The patient was stable for discharge home. Follow up with the primary medical provider. FINAL DIAGNOSES: 1. Chest pain , noncardiac of musculoskeletal origin due to fall 2. Likely chest wall contusion 2. Diastolic dysfunction. 3. Chronic kidney disease. 4. Hypertensive heart disease. 5. Chronic obstructive pulmonary disease. 6. Diabetes. 7. Edema of lower extremity. 8. Hypoechoic mass, right kidney. DISCHARGE MEDICATIONS: See medication reconciliation list. DISCHARGE INSTRUCTIONS: The patient was discharged home. Follow up with the primary medical doctor. Primo Strauss M.D. [facility] ([facility] DR: JOHAN JOB#: [id number] CC: TISHA
--- NOTE | 2017-11-10 13:43 | Diagnostic Imaging Report ---
Indication: Shoulder pain Technique: MRI of the left shoulder obtained in a 1.5 Yadira magnet. Pulse sequences obtained include axial and coronal proton fast spin-echo with fat saturation, sagittal T1 fast spin-echo, sagittal and coronal T2 fast spin-echo with fat saturation. Findings: There is no acute fracture or evidence of osteonecrosis. There is high signal at the articular surface of the supraspinatus and infraspinous tendons possibly reflecting severe tendinosis versus high-grade partial-thickness tear without retraction or muscle atrophy. There is a 6 mm low signal intensity focus in the region of the infraspinatus insertion on the greater tuberosity may correlate with the calcification noted in this region on radiograph and may be reflective of calcific tendinitis. Teres minor is intact. There is mild subscapularis tendinosis. There is mild subacromial and subdeltoid bursitis. There is acromioclavicular arthrosis with capsular hypertrophy and bone marrow edema at the distal clavicle. There is some fluid within the biceps tendon sheath, which may be related to small glenohumeral joint effusion or biceps tenosynovitis. Biceps tendon is intact. There is fissuring at the base of the superior labrum, which appears degenerated. There is diffuse hyperintensity of the axillary pouch and the surrounding soft tissues, particularly at the humeral attachment which may be from recent injury versus adhesive capsulitis. IMPRESSION: Calcific tendinitis of the infraspinatus tendon with mild subacromial/subdeltoid bursitis. Glenohumeral osteoarthritis and small joint effusion. Diffuse abnormality of the axillary pouch and the surrounding soft tissues, particularly at the humeral attachment, which may be sequela of recent injury versus adhesive capsulitis. Correlate clinically.
== END 2017-11-04 19:15 | disposition home or self-care (01) | DRG 605 ==
LOC: EMR 13:25 → 2E 18:00 → EDBEDREQ 21:23 → 2E 23:57 → 3E 11-02 19:00
DX: S20.219A Contusion of unspecified front wall of thorax, initial encounter (principal); N17.9 Acute kidney failure, unspecified; I13.0 Hypertensive heart and chronic kidney disease with heart failure and stage 1 through stage 4 chronic kidney disease, or unspecified chronic kidney disease; I50.32 Chronic diastolic (congestive) heart failure; Z68.42 Body mass index [BMI] 45.0-49.9, adult; J44.9 Chronic obstructive pulmonary disease, unspecified; R07.89 Other chest pain; W19.XXXA Unspecified fall, initial encounter; Y92.003 Bedroom of unspecified non-institutional (private) residence as the place of occurrence of the external cause; G47.33 Obstructive sleep apnea (adult) (pediatric); N18.9 Chronic kidney disease, unspecified; E11.9 Type 2 diabetes mellitus without complications; E66.01 Morbid (severe) obesity due to excess calories; M25.512 Pain in left shoulder
CPT/HCPCS: 36415; 71045; 76775; 80048; 80053; 80061; 81003; 82043; 82044; 82570; 82962; 83880; 84300; 84443; 84484; 85025; 85610; 85730; 86140; 89050; 93005; 93306; 93970; 94640; 94660; 94760; 99284; J1815; J7620

== ENCOUNTER 2019-01-25 15:33 | Inpatient (IN) | payer MEDICARE, OTHER ==
[~2019-01-25] VITALS: Ht 170.2 cm; Wt 124.7 kg
[~2019-01-25 15:33] MED LIST changes: +ATROVENT HFA12.9 GM IH; +CARVEDILOL25 MG ORAL; +DOCUSATE SODIU100 MG ORAL; +LEVEMIR FL100 UNIT/2 SQ; +LUMIGAN2.5 ML BOTH EYES; +ONE DAILY FOR1 EAC2 ORAL; +POTASSIUM CHLO20 ME1 ORAL; +VITAMIN D1000 UNI1 ORAL; +ZEGERID 40 MG1 EACH ORAL
[2019-01-25 16:17] VITALS: BP 171/95
[2019-01-25 16:32] LABS: BASOPHILS % (AUTO) 2.3 % (0.0-2.0); EOSINOPHILS % (AUTO) 3.3 % (0.0-3.0); HEMATOCRIT 36.9 % (42.0-52.0); HEMOGLOBIN 11.4 G/DL (14.2-18.0); LYMPHOCYTES % (AUTO) 18.1 % (20.0-45.0); MEAN CORPUSCULAR VOLUME 80 FL (80-99); MONOCYTES % (AUTO) 10.1 % (1.0-10.0); NEUTROPHILS % (AUTO) 66.2 % (45.0-75.0); PLATELET COUNT 186 K/UL (150-450); RED BLOOD COUNT 4.61 M/UL (4.70-6.10); WHITE BLOOD COUNT 6.6 K/UL (4.8-10.8)
[2019-01-25 16:43] LABS: ANION GAP 11 mmol/L (5-15); BLOOD UREA NITROGEN 29 mg/dL (7-18); CALCIUM 8.3 MG/DL (8.5-10.1); CARBON DIOXIDE 23 MMOL/L (21-32); CHLORIDE 106 MMOL/L (98-107); CREATININE 3.4 MG/DL (0.55-1.30); POTASSIUM 4.1 MMOL/L (3.5-5.1); SODIUM 140 MMOL/L (136-145)
[2019-01-25 16:59] LABS: ALANINE AMINOTRANSFERASE 27 U/L (12-78); ALBUMIN 3.2 G/DL (3.4-5.0); ALBUMIN/GLOBULIN RATIO 0.8 (1.0-2.7); ALKALINE PHOSPHATASE 113 U/L (46-116); ASPARTATE AMINO TRANSFERASE 25 U/L (15-37); BILIRUBIN,TOTAL 0.5 MG/DL (0.2-1.0); CKMB 4.2 NG/ML (0.0-3.6); CREATINE KINASE 430 U/L (26-308)
--- NOTE | 2019-01-25 17:12 | Emergency Room Report ---
History of Present Illness General Chief Complaint: Dyspnea/Respdistress Source: Patient Present Illness HPI Patient presents with reports of shortness of breath increased exertional dyspnea Patient has history of CHF and cardiac disease He saw his primary physician on Saturday who requested the patient come to the emergency room patient did not initially calm however as his symptoms continue to worsen he now presents to the ER denies any vomiting or diarrhea Denies any active chest pain He feels laying down flat and any slight exertion causes worsening of his symptoms also increased swelling in his legs Allergies: Coded Allergies: No Known Allergies (Verified , 01/17/12) Patient History Past Medical History: see triage record Pertinent Family History: none Reviewed Nursing Documentation: PMH: Agreed; PSxH: Agreed Nursing Documentation-PMH Past Medical History: No History, Except For Hx Cardiac Problems: Yes Hx Hypertension: Yes Hx Pacemaker: No Hx COPD: Yes Hx Diabetes: Yes Hx Cancer: No Hx Gastrointestinal Problems: Yes Hx Dialysis: No Hx Neurological Problems: No Hx Cerebrovascular Accident: No Hx Seizures: No Hx Headaches: Yes Review of Systems All Other Systems: negative except mentioned in HPI Physical Exam Vital Signs Date Time Temp Pulse Resp B/P (MAP) Pulse Ox O2 Delivery O2 Flow Rate FiO2 01/25/19 15:36 97.7 89 22 160/90 91 Room Air Sp02 EP Interpretation: reviewed, normal General Appearance: mild distress - Appears short of breath Head: normocephalic, atraumatic Eyes: bilateral eye PERRL, bilateral eye EOMI ENT: hearing grossly normal, normal pharynx, TMs + canals normal, uvula midline Neck: full range of motion, supple, no meningismus, no bony tend Respiratory: normal breath sounds, no respiratory distress, no retraction, no accessory muscle use, crackles - Bilaterally Cardiovascular #1: normal peripheral pulses, regular rate, rhythm, no gallop, no JVD, no murmur Gastrointestinal: normal bowel sounds, non tender, soft, no mass, no organomegaly, non-distended, no guarding, no hernia, no pulsatile mass, no rebound Genitourinary: no CVA tenderness Musculoskeletal: normal inspection Neurologic: oriented x3, responsive, brick cleaner III-XII nml as tested, motor strength/ tone normal, sensory intact Psychiatric: mood/affect normal Skin: other Lymphatic: normal inspection, no adenopathy Medical Decision Making Diagnostic Impression: Primary Impression: Dyspnea Additional Impression: CHF exacerbation ER Course Patient is a fairly complex patient with multiple differential to consideration including but not limited to cardiac cardiopulmonary and vascular emergencies Patient clinically is fluid overloaded as well Further Lasix is provided Patient's blood pressure remains appropriate oxygenation is appropriate and patient requires further inpatient care Labs Test 01/25/19 16:03 01/25/19 18:45 White Blood Count 6.6 K/UL (4.8-10.8) Red Blood Count 4.61 M/UL (4.70-6.10) Hemoglobin 11.4 G/DL (14.2-18.0) Hematocrit 36.9 % (42.0-52.0) Mean Corpuscular Volume 80 FL (80-99) Mean Corpuscular Hemoglobin 24.6 PG (27.0-31.0) Mean Corpuscular Hemoglobin Concent 30.8 G/DL (32.0-36.0) Red Cell Distribution Width 15.0 % (11.6-14.8) Platelet Count 186 K/UL (150-450) Mean Platelet Volume 8.3 FL (6.5-10.1) Neutrophils (%) (Auto) 66.2 % (45.0-75.0) Lymphocytes (%) (Auto) 18.1 % (20.0-45.0) Monocytes (%) (Auto) 10.1 % (1.0-10.0) Eosinophils (%) (Auto) 3.3 % (0.0-3.0) Basophils (%) (Auto) 2.3 % (0.0-2.0) Sodium Level 140 MMOL/L (136-145) Potassium Level 4.1 MMOL/L (3.5-5.1) Chloride Level 106 MMOL/L (98-107) Carbon Dioxide Level 23 MMOL/L (21-32) Anion Gap 11 mmol/L (5-15) Blood Urea Nitrogen 29 mg/dL (7-18) Creatinine 3.4 MG/DL (0.55-1.30) Estimat Glomerular Filtration Rate 22.4 mL/min (>60) Glucose Level 124 MG/DL (74-106) Uric Acid 7.3 MG/DL (2.6-7.2) Calcium Level 8.3 MG/DL (8.5-10.1) Total Bilirubin 0.5 MG/DL (0.2-1.0) Aspartate Amino Transf (AST/SGOT) 25 U/L (15-37) Alanine Aminotransferase (ALT/SGPT) 27 U/L (12-78) Alkaline Phosphatase 113 U/L (46-116) Total Creatine Kinase 430 U/L (26-308) Creatine Kinase MB 4.2 NG/ML (0.0-3.6) Creatine Kinase MB Relative Index 0.9 Troponin I 0.021 ng/mL (0.000-0.056) Pro-B-Type Natriuretic Peptide 851 pg/mL (0-125) Total Protein 7.0 G/DL (6.4-8.2) Albumin 3.2 G/DL (3.4-5.0) Globulin 3.8 g/dL Albumin/Globulin Ratio 0.8 (1.0-2.7) Urine Color Pale yellow Urine Appearance Clear Urine pH 6.5 (4.5-8.0) Urine Specific [place] 1.005 (1.005-1.035) Urine Protein 3+ (NEGATIVE) Urine Glucose (UA) Negative (NEGATIVE) Urine Ketones Negative (NEGATIVE) Urine Blood Negative (NEGATIVE) Urine Nitrite Negative (NEGATIVE) Urine Bilirubin Negative (NEGATIVE) Urine Urobilinogen Normal MG/DL (0.0-1.0) Urine Leukocyte Esterase Negative (NEGATIVE) Urine RBC 0-2 /HPF (0 - 0) Urine WBC 0 /HPF (0 - 0) Urine Squamous Epithelial Cells Occasional /LPF Urine Bacteria Occasional /HPF (NONE) Urine Random Sodium 117 mmol/L (20-110) Urine Creatinine 24.8 MG/DL (30.0-125.0) Urine Potassium Timed 19 mmol/L (12-62) Rhythm Strip Diag. Results EP Interpretation: yes Rate: 88 Rhythm: NSR, no PVC's, no ectopy Chest X-Ray Diagnostic Results Chest X-Ray Diagnostic Results : Chest X-Ray Ordered: Yes # of Views/Limited/Complete: 1 View Indication: Shortness of Breath EP Interpretation: Yes Interpretation: no consolidation, no effusion, no pneumothorax, other - Pulmonary congestion Impression: Other - Acute CHF Electronically Signed by: Cecily Peck DO Last Vital Signs Date Time Temp Pulse Resp B/P (MAP) Pulse Ox O2 Delivery O2 Flow Rate FiO2 01/25/19 16:17 97.7 88 22 171/95 95 Room Air Status: improved Disposition: ADMITTED INPATIENT Condition: Serious Referrals: Primo Strauss MD (PCP) Cecily Peck DO Jan 25, 2019 17:12
[2019-01-25 17:50] VITALS: BP 151/93
[2019-01-25] MEDS ORDERED: Albuterol/Ipratropium 3ml neb HHN PRN (18:15)
[2019-01-25] MEDS ORDERED: Miralax 17gm pkt ORAL PRN (18:15)
[2019-01-25 18:29] VITALS: BP 195/99
[2019-01-25 19:01] LABS: APPEARANCE,URINE CLEAR; BILIRUBIN, URINE NEGATIVE (NEGATIVE); COLOR,URINE PALE YELLOW; GLUCOSE, URINE (UA) NEGATIVE (NEGATIVE); KETONES,URINE NEGATIVE (NEGATIVE); LEUKOCYTE ESTERASE ,URINE NEGATIVE (NEGATIVE); NITRITE,URINE NEGATIVE (NEGATIVE); PH,URINE 6.5 (4.5-8.0); PROTEIN,URINE 3+ (NEGATIVE); UROBILINOGEN,URINE NORMAL MG/DL (0.0-1.0)
[2019-01-25 20:00] VITALS: BP 167/82
[2019-01-25] MEDS: NovoLOG Insulin Flexpen SUBQ SCH (21:00)
[2019-01-25] MEDS: Levemir Flexpen SUBQ SCH (21:00)
[2019-01-25] MEDS: Heparin 5000 units/ml inj SUBQ SCH (21:31)
[2019-01-25] MEDS: Carvedilol 25mg Tab ORAL SCH (21:32)
[2019-01-26] VITALS (8 sets, daily range): BP systolic 143–181; BP diastolic 78–100
[2019-01-26] MEDS: HydrALAZINE 50mg tab ORAL PRN ×2 (00:52→04:48)
[2019-01-26] MEDS: NovoLOG Insulin Flexpen SUBQ SCH ×4 (06:30→21:00)
[2019-01-26 06:48] LABS: BASOPHILS % (AUTO) 3.4 % (0.0-2.0); EOSINOPHILS % (AUTO) 4.1 % (0.0-3.0); HEMOGLOBIN 11.4 G/DL (14.2-18.0); LYMPHOCYTES % (AUTO) 24.8 % (20.0-45.0); MEAN CORPUSCULAR VOLUME 81 FL (80-99); MONOCYTES % (AUTO) 12.7 % (1.0-10.0); PLATELET COUNT 184 K/UL (150-450); RED BLOOD COUNT 4.58 M/UL (4.70-6.10); RED CELL DISTRIBUTION WIDTH 15.1 % (11.6-14.8); WHITE BLOOD COUNT 4.9 K/UL (4.8-10.8)
[2019-01-26 07:22] LABS: ALANINE AMINOTRANSFERASE 30 U/L (12-78); ALBUMIN 3.1 G/DL (3.4-5.0); ALKALINE PHOSPHATASE 108 U/L (46-116); ANION GAP 10 mmol/L (5-15); ASPARTATE AMINO TRANSFERASE 22 U/L (15-37); BILIRUBIN,TOTAL 0.5 MG/DL (0.2-1.0); BLOOD UREA NITROGEN 32 mg/dL (7-18); CALCIUM 8.5 MG/DL (8.5-10.1); CARBON DIOXIDE 27 MMOL/L (21-32); CHLORIDE 105 MMOL/L (98-107); CREATININE 3.7 MG/DL (0.55-1.30); POTASSIUM 4.1 MMOL/L (3.5-5.1); SODIUM 142 MMOL/L (136-145)
[2019-01-26] MEDS: Timolol 0.5% Op Soln 2.5ml BOTH EYES SCH (08:59)
[2019-01-26] MEDS: Carvedilol 25mg Tab ORAL SCH ×2 (09:05→21:09)
[2019-01-26] MEDS: Heparin 5000 units/ml inj SUBQ SCH ×2 (09:14→21:08)
--- NOTE | 2019-01-26 09:47 | History & Physical ---
History and Physical History & Physicial Cardiology Dr. Nguyễn Pulmonary Dr. Ribera Nephrology Primo Crowley MD Jan 26, 2019 09:47
--- NOTE | 2019-01-26 10:14 | Diagnostic Imaging Report ---
Indication: Shortness of breath Technique: One view of the chest Comparison: 11/04/2017 Findings: The heart is enlarged. There is bilateral interstitial edema. This appears slightly worse than on the prior exam The pleural spaces are clear. Impression: Evidence of congestive heart failure, with cardiomegaly and bilateral interstitial edema
--- NOTE | 2019-01-26 10:55 | Diagnostic Imaging Report ---
Indication: Dyspnea, cough Technique: One view of the chest Comparison: 01/25/2019 Findings: The heart is enlarged. Previously demonstrated interstitial congestion has improved, with only minimal residual. The pleural spaces remain clear. Impression: Improved interstitial congestion, over one day, minimal residual Stable cardiomegaly
[2019-01-26] MEDS ORDERED: Carvedilol 25mg Tab ORAL SCH (12:30)
--- NOTE | 2019-01-26 12:31 | Consultation ---
History of Present Illness General Date patient seen: Jan 26, 2019 Chief Complaint: Dyspnea/Respdistress Present Illness HPI 63 year old male with hx of HTN, diastolic CHF, DM, PEPE, morbid obesity presents presented to ER with CC of shortness of breath increased exertional dyspnea He saw his primary physician on Saturday who requested the patient come to the emergency room patient did not initially come however as his symptoms continue to worsen he now presents to the ER denies any vomiting or diarrhea. He was diagnosed to have acute decompensation of his CHF and admitted to telemetry for further work up. Allergies: Coded Allergies: No Known Allergies (Verified , 01/17/12) Medication History Scheduled Allopurinol* (Allopurinol*), 300 MG ORAL DAILY, (Reported) Amlodipine Besylate* (Amlodipine Besylate*), 10 PO DAILY, (Reported) Aspirin* (Aspirin*), 81 MG ORAL DAILY, (Reported) Atorvastatin Calcium* (Atorvastatin Calcium*), 20 MG ORAL DAILY, (Reported) Bimatoprost (Lumigan), 1 DROP BOTH EYES QPM, (Reported) Carvedilol* (Carvedilol*), 25 MG ORAL BID, (Reported) Cetirizine Hcl* (Zyrtec*), 10 MG ORAL DAILY, (Reported) Cholecalciferol (Vitamin D3)* (Vitamin D*), 1,000 UNIT ORAL DAILY, (Reported) Ferrous Sulfate* (Ferrous Sulfate*), 325 MG ORAL DAILY, (Reported) Furosemide* (Lasix*), 40 MG ORAL DAILY Hydralazine Hcl* (Hydralazine Hcl*), 100 MG ORAL THREE TIMES A DAY, (Reported) Insulin Detemir (Levemir Flextouch), 7 UNIT SQ QHS, (Reported) Ipratropium Onset (Atrovent Hfa), 2 PUFFS IH TID, (Reported) Linagliptin (Tradjenta), 5 MG PO DAILY, (Reported) Liraglutide (Victoza 2-Gio), 1.8 MG SUBQ DAILY, (Reported) Mv,Minerals/Fa/Lycopene/Ginkgo (One Daily For Men 50+ Adv Tab), 1 TAB ORAL DAILY , (Reported) Omeprazole/Sodium Bicarbonate (Zegerid 40 Mg Capsule), 40-1,100 MG ORAL DAILY, ( Reported) Potassium Chloride* (K-Dur*), 20 MEQ ORAL DAILY, (Reported) Timolol Maleate (Timolol Maleate), 1 DROP BOTH EYES DAILY, (Reported) Scheduled PRN Docusate Sodium* (Docusate Sodium*), 100 MG ORAL THREE TIMES A DAY PRN for Constipation, (Reported) Patient History Healthcare decision maker Resuscitation status Full Code Advanced Directive on File Past Medical/Surgical History Past Medical/Surgical History: (1) CKD (chronic kidney disease) (2) Anemia (3) Obstructive sleep apnea (4) HTN (hypertension) (5) Diabetes mellitus, type II (6) Chronic diastolic (congestive) heart failure (7) Obesity (BMI 35.0-39.9 without comorbidity) Review of Systems All Other Systems: negative except mentioned in HPI Physical Exam General Appearance: WD/WN, morbidly obese Lines, tubes and drains: peripheral Neck: non-tender, normal alignment Respiratory/Chest: chest wall non-tender, lungs clear, rhonchi - left, rhonchi - right Cardiovascular/Chest: normal peripheral pulses, normal rate Abdomen: normal bowel sounds, non tender Genitourinary/Rectal: normal genital exam Extremities: normal range of motion Skin Exam: normal pigmentation 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 Last 24 Hour Vital Signs Date Time Temp Pulse Resp B/P (MAP) Pulse Ox O2 Delivery O2 Flow Rate FiO2 01/26/19 09:05 76 159/90 01/26/19 09:04 76 159/90 01/26/19 09:00 Room Air 01/26/19 08:00 97.2 76 20 159/90 (113) 96 01/26/19 08:00 73 01/26/19 06:55 78 18 Room Air 21 01/26/19 06:13 72 18 154/88 (110) 96 01/26/19 05:57 73 181/85 01/26/19 05:45 72 18 94 01/26/19 04:48 181/85 01/26/19 04:40 72 17 95 Facial 30 01/26/19 04:04 98.0 01/26/19 04:00 73 01/26/19 04:00 98.0 70 20 181/85 (117) 96 01/26/19 00:52 169/94 01/26/19 00:45 70 21 100 Facial 30 01/26/19 00:00 98.8 74 22 180/100 (126) 96 01/26/19 00:00 76 01/25/19 22:40 75 28 Room Air 21 01/25/19 22:40 75 28 100 Facial 30 01/25/19 21:32 80 167/82 01/25/19 21:00 Room Air 01/25/19 20:00 97.9 75 20 167/82 (110) 94 01/25/19 20:00 77 01/25/19 18:34 Room Air 01/25/19 18:29 98.0 83 18 195/99 (131) 98 01/25/19 18:22 97.7 72 18 151/93 96 Room Air 01/25/19 17:50 97.7 72 18 151/93 96 Room Air 01/25/19 16:17 97.7 88 22 171/95 95 Room Air 01/25/19 16:17 88 22 Room Air 01/25/19 15:36 97.7 89 22 160/90 91 Room Air Intake and Output 01/25/19 01/26/19 18:59 06:59 Intake Total 360 ml Output Total 800 ml 1850 ml Balance -800 ml -1490 ml Intake Oral 360 ml Output Urine Total 800 ml 1850 ml # Voids 5 Laboratory Tests Test 01/25/19 16:03 01/25/19 18:45 01/26/19 06:08 White Blood Count 6.6 K/UL (4.8-10.8) 4.9 K/UL (4.8-10.8) Red Blood Count 4.61 M/UL (4.70-6.10) L 4.58 M/UL (4.70-6.10) L Hemoglobin 11.4 G/DL (14.2-18.0) L 11.4 G/DL (14.2-18.0) L Hematocrit 36.9 % (42.0-52.0) L 37.0 % (42.0-52.0) L Mean Corpuscular Volume 80 FL (80-99) 81 FL (80-99) Mean Corpuscular Hemoglobin 24.6 PG (27.0-31.0) L 25.0 PG (27.0-31.0) L Mean Corpuscular Hemoglobin Concent 30.8 G/DL (32.0-36.0) L 30.9 G/DL (32.0-36.0) L Red Cell Distribution Width 15.0 % (11.6-14.8) H 15.1 % (11.6-14.8) H Platelet Count 186 K/UL (150-450) 184 K/UL (150-450) Mean Platelet Volume 8.3 FL (6.5-10.1) 9.7 FL (6.5-10.1) Neutrophils (%) (Auto) 66.2 % (45.0-75.0) 55.0 % (45.0-75.0) Lymphocytes (%) (Auto) 18.1 % (20.0-45.0) L 24.8 % (20.0-45.0) Monocytes (%) (Auto) 10.1 % (1.0-10.0) H 12.7 % (1.0-10.0) H Eosinophils (%) (Auto) 3.3 % (0.0-3.0) H 4.1 % (0.0-3.0) H Basophils (%) (Auto) 2.3 % (0.0-2.0) H 3.4 % (0.0-2.0) H Sodium Level 140 MMOL/L (136-145) 142 MMOL/L (136-145) Potassium Level 4.1 MMOL/L (3.5-5.1) 4.1 MMOL/L (3.5-5.1) Chloride Level 106 MMOL/L (98-107) 105 MMOL/L (98-107) Carbon Dioxide Level 23 MMOL/L (21-32) 27 MMOL/L (21-32) Anion Gap 11 mmol/L (5-15) 10 mmol/L (5-15) Blood Urea Nitrogen 29 mg/dL (7-18) H 32 mg/dL (7-18) H Creatinine 3.4 MG/DL (0.55-1.30) H 3.7 MG/DL (0.55-1.30) H Estimat Glomerular Filtration Rate 22.4 mL/min (>60) 20.4 mL/min (>60) Glucose Level 124 MG/DL (74-106) H 100 MG/DL (74-106) Uric Acid 7.3 MG/DL (2.6-7.2) H Pending Calcium Level 8.3 MG/DL (8.5-10.1) L 8.5 MG/DL (8.5-10.1) Total Bilirubin 0.5 MG/DL (0.2-1.0) 0.5 MG/DL (0.2-1.0) Aspartate Amino Transf (AST/SGOT) 25 U/L (15-37) 22 U/L (15-37) Alanine Aminotransferase (ALT/SGPT) 27 U/L (12-78) 30 U/L (12-78) Alkaline Phosphatase 113 U/L (46-116) 108 U/L (46-116) Total Creatine Kinase 430 U/L (26-308) H Pending Creatine Kinase MB 4.2 NG/ML (0.0-3.6) H Creatine Kinase MB Relative Index 0.9 Troponin I 0.021 ng/mL (0.000-0.056) 0.026 ng/mL (0.000-0.056) Pro-B-Type Natriuretic Peptide 851 pg/mL (0-125) H 743 pg/mL (0-125) H Total Protein 7.0 G/DL (6.4-8.2) 6.3 G/DL (6.4-8.2) L Albumin 3.2 G/DL (3.4-5.0) L 3.1 G/DL (3.4-5.0) L Globulin 3.8 g/dL 3.2 g/dL Albumin/Globulin Ratio 0.8 (1.0-2.7) L 1.0 (1.0-2.7) Urine Color Pale yellow Urine Appearance Clear Urine pH 6.5 (4.5-8.0) Urine Specific [place] 1.005 (1.005-1.035) Urine Protein 3+ (NEGATIVE) H Urine Glucose (UA) Negative (NEGATIVE) Urine Ketones Negative (NEGATIVE) Urine Blood Negative (NEGATIVE) Urine Nitrite Negative (NEGATIVE) Urine Bilirubin Negative (NEGATIVE) Urine Urobilinogen Normal MG/DL (0.0-1.0) Urine Leukocyte Esterase Negative (NEGATIVE) Urine RBC 0-2 /HPF (0 - 0) H Urine WBC 0 /HPF (0 - 0) Urine Squamous Epithelial Cells Occasional /LPF Urine Bacteria Occasional /HPF (NONE) Urine Eosinophils None seen (NONE SEEN) Urine Random Creatinine Pending Urine Random Microalbumin Pending Urine Random Sodium 117 mmol/L (20-110) H Urine Creatinine 24.8 MG/DL (30.0-125.0) L Urine Microalbumin/Creatinine Ratio Pending Urine Potassium Timed 19 mmol/L (12-62) Height (Feet): 5 Height (Inches): 7.00 Weight (Pounds): 270 Medications Current Medications Medications (Trade) Dose Ordered Sig/Oanh Route PRN Reason Start Time Stop Time Status Last Admin Dose Admin Acetaminophen (Tylenol) 650 mg Q4H PRN ORAL Fever 01/25/19 18:15 02/24/19 18:14 01/26/19 03:34 Albuterol/ Ipratropium (Albuterol/ Ipratropium) 3 ml EVERY 4 HOURS PRN HHN Shortness of Breath 01/25/19 18:15 01/30/19 18:14 Allopurinol (Allopurinol) 300 mg DAILY ORAL 01/26/19 09:00 02/25/19 08:59 01/26/19 09:05 Amlodipine Besylate (Norvasc) 5 mg DAILY ORAL 01/26/19 09:00 02/25/19 08:59 01/26/19 09:04 Atorvastatin Calcium (Lipitor) 20 mg DAILY ORAL 01/26/19 09:00 02/25/19 08:59 01/26/19 09:05 Carvedilol (Coreg) 25 mg EVERY 12 HOURS ORAL 01/25/19 21:30 02/24/19 21:29 01/26/19 09:05 Dextrose (Dextrose 50%) 25 ml Q30M PRN IV Hypoglycemia 01/25/19 18:15 02/24/19 18:14 Dextrose (Dextrose 50%) 50 ml Q30M PRN IV Hypoglycemia 01/25/19 18:15 02/24/19 18:14 Furosemide (Lasix) 40 mg EVERY 8 HOURS IV 01/25/19 22:00 02/24/19 21:59 01/26/19 05:57 Heparin Sodium (Porcine) (Heparin 5000 units/ml) 5,000 units EVERY 12 HOURS SUBQ 01/25/19 21:00 02/24/19 20:59 01/26/19 09:14 Hydralazine HCl (Apresoline) 50 mg Q4H PRN ORAL SBP >150 01/25/19 22:15 02/24/19 22:14 01/26/19 04:48 Hydralazine HCl (Apresoline) 50 mg Q8HR ORAL 01/26/19 14:00 02/25/19 13:59 Insulin Aspart (NovoLOG) BEFORE MEALS AND HS SUBQ 01/25/19 21:00 02/24/19 20:59 Insulin Detemir (Levemir) 7 units QHS SUBQ 01/25/19 21:00 02/24/19 20:59 Ondansetron HCl (Zofran) 4 mg Q6H PRN IVP Nausea & Vomiting 01/25/19 18:15 02/24/19 18:14 Polyethylene Glycol (Miralax) 17 gm DAILYPRN PRN ORAL Constipation 01/25/19 18:15 02/24/19 18:14 Temazepam (Restoril) 15 mg HSPRN PRN ORAL Insomnia 01/25/19 18:15 02/01/19 18:14 Timolol Maleate (Timoptic 0.5% Op Soln) 1 drop DAILY BOTH EYES 01/26/19 09:00 02/25/19 08:59 01/26/19 08:59 Assessment/Plan Problem List: (1) Acute respiratory failure ICD Codes: J96.00 - Acute respiratory failure, unspecified whether with hypoxia or hypercapnia SNOMED: 97641107 (2) Chronic diastolic (congestive) heart failure ICD Codes: I50.32 - Chronic diastolic (congestive) heart failure SNOMED: 47576461, 450519973 (3) Acute on chronic renal failure ICD Codes: N17.9 - Acute kidney failure, unspecified; N18.9 - Chronic kidney disease, unspecified SNOMED: 806104405 (4) Accelerated hypertension ICD Codes: I10 - Essential (primary) hypertension SNOMED: 33988476 (5) COPD (chronic obstructive pulmonary disease) ICD Codes: J44.9 - Chronic obstructive pulmonary disease, unspecified SNOMED: 23677171 (6) Obstructive sleep apnea ICD Codes: G47.33 - Obstructive sleep apnea (adult) (pediatric) SNOMED: 57067489 (7) Anemia ICD Codes: D64.9 - Anemia SNOMED: 312558449 (8) Obesity (BMI 35.0-39.9 without comorbidity) ICD Codes: E66.9 - Obesity, unspecified SNOMED: 351674485, 750075203 (9) Diabetes mellitus, type II ICD Codes: E11.9 - Type 2 diabetes mellitus without complications SNOMED: 28140637 Assessment/Plan diuretics check echo monitor BP renal w/u 'sliding scale diabetic diet check cxr and bnp monitor electrolytes while getting high dose of lasix dvt prophylaxis. Destiny Ribera MD Jan 26, 2019 12:31
[2019-01-26 12:38] LABS: CREATINE KINASE 354 U/L (26-308)
[2019-01-26 13:10] LABS: APPEARANCE,URINE CLEAR; BILIRUBIN, URINE NEGATIVE (NEGATIVE); COLOR,URINE PALE YELLOW; GLUCOSE, URINE (UA) NEGATIVE (NEGATIVE); KETONES,URINE NEGATIVE (NEGATIVE); LEUKOCYTE ESTERASE ,URINE NEGATIVE (NEGATIVE); NITRITE,URINE NEGATIVE (NEGATIVE); PH,URINE 6.5 (4.5-8.0); PROTEIN,URINE 3+ (NEGATIVE); UROBILINOGEN,URINE NORMAL MG/DL (0.0-1.0)
[2019-01-26] MEDS: HydrALAZINE 50mg tab ORAL SCH ×2 (13:51→22:07)
[2019-01-26] MEDS ORDERED: HydrALAZINE 50mg tab ORAL SCH ×2 (14:00)
--- NOTE | 2019-01-26 18:15 | History and Physical Report ---
DATE OF ADMISSION: 01/25/2019 CHIEF COMPLAINT: Shortness of breath and leg edema. HISTORY OF PRESENT ILLNESS: This is a 63-year-old gentleman with past medical history significant for congestive heart failure; hypertension; history of diabetes, type 2; morbid obesity; chronic kidney disease, stage 3; history of dyslipidemia; obstructive sleep apnea, who has presented to the hospital complaining about leg edema, shortness of breath, and uncontrolled high blood pressure. The patient was seen in the office last Saturday, and it was noted that the blood pressure was mildly elevated, however, he denied complaining about shortness of breath or chest pain. Shortly after initial evaluation, the patient was advised that if his status is not improving, consider request to emergency room shortly and the patient presented to the emergency room now and denies any nausea or vomiting. Denies any chest pain. He complained about shortness of breath, pedal edema, and elevated blood pressure. Shortly after initial evaluation in the emergency, the patient was admitted to the hospital with acute CHF exacerbation with uncontrolled hypertension with hypertensive urgency. PAST MEDICAL HISTORY AND PAST SURGICAL HISTORY: As above. History of morbid obesity, hypertension, dyslipidemia, obstructive sleep apnea, chronic kidney disease, and ischemic cardiomyopathy. MEDICATIONS: Medications at home, please refer to medication reconciliation. ALLERGIES: No known drug allergies. SOCIAL HISTORY: Denies any smoking, alcohol, or drugs. FAMILY HISTORY: Noncontributory. REVIEW OF SYSTEMS: Mostly as above. Denies any dysuria, frequency, or hematuria. Denies any hemoptysis or hematochezia. Denies any suicidal or homicidal ideation. Denies any loss of consciousness. Denies any fall or head trauma. PHYSICAL EXAMINATION: VITAL SIGNS: On admission, temperature 97.7, pulse of 89, respirations 22, and blood pressure 160/90. GENERAL: The patient is awake and responsive, in no acute distress. HEAD AND NECK: Pupils are equal and reactive to light. Extraocular movements are intact. Neck was supple. Positive JVD. LUNGS: Good air entry. No wheezing or rales. Decreased air in the bases. HEART: S1 and S2. Distant heart sounds. No gallops. ABDOMEN: Soft, nondistended, and nontender. Morbid obesity. No fluid shift. EXTREMITIES: No cyanosis or clubbing. +2 edema in bilateral lower extremities. NEUROLOGIC: Cranial nerves II through XII grossly intact. Motor is 5/5 in all extremities. Gait is intact. RECTAL: Refused and deferred. GENITOURINARY: Refused and deferred. PSYCHIATRIC: Mood and affect are intact. LABORATORY AND DIAGNOSTIC DATA: Laboratory on admission from the ER is significant for sodium 140, potassium 4.1 chloride 106, bicarbonate 23, BUN 29, creatinine 3.4, GFR is 22, glucose is 124, calcium is 8.3, and total bilirubin of 0.5. AST of 25, ALT of 27, alkaline phosphate is 113. CK index is 0.9 and troponin is 0.0216. ProBNP of 851. Total protein is 7.0. Albumin is 3.2. WBC of 6.6, hemoglobin 11, hematocrit 36, and platelet is 186,000. UA is +3 protein, potassium in the urine is 19. ASSESSMENT: 1. Acute CHF exacerbation on chronic with diastolic dysfunction. 2. Morbid obesity. 3. Hypertension. 4. Dyslipidemia. 5. Diabetes type 2. 6. Chronic pedal edema. 7. Obstructive sleep apnea. 8. Chronic kidney disease, stage 3. PLAN: Admit the patient to monitored unit. We will follow up laboratory. Discussed case with Dr. Junaid Nguyễn from Cardiology, who knows the patient from prior admission as well as Dr. Angelita Templeton from Nephrology. We will follow up with the laboratory in the morning. Code status, Full Code. DVT prophylaxis, heparin subcutaneous. The patient is on the Lasix IV. Follow up with Dr. Ribera from Pulmonary Critical Care and discussed with the patient extensively regard to the diet and with compliance with the diet. Primo Strauss M.D. DR: LOGAN JOB#: [id number] CC:
--- NOTE | 2019-01-26 19:52 | Cardiology Progress Note ---
Assessment/Plan Assessment/Plan [id number] Objective Last 24 Hour Vital Signs Date Time Temp Pulse Resp B/P (MAP) Pulse Ox O2 Delivery O2 Flow Rate FiO2 01/26/19 17:25 71 143/78 01/26/19 16:00 71 01/26/19 16:00 97.4 68 24 143/78 (99) 96 01/26/19 13:51 161/96 01/26/19 12:00 96.8 72 23 161/96 (117) 98 01/26/19 12:00 82 01/26/19 09:05 76 159/90 01/26/19 09:04 76 159/90 01/26/19 09:00 Room Air 01/26/19 08:00 97.2 76 20 159/90 (113) 96 01/26/19 08:00 73 01/26/19 06:55 78 18 Room Air 21 01/26/19 06:13 72 18 154/88 (110) 96 01/26/19 05:57 73 181/85 01/26/19 05:45 72 18 94 01/26/19 04:48 181/85 01/26/19 04:40 72 17 95 Facial 30 01/26/19 04:04 98.0 01/26/19 04:00 73 01/26/19 04:00 98.0 70 20 181/85 (117) 96 01/26/19 00:52 169/94 01/26/19 00:45 70 21 100 Facial 30 01/26/19 00:00 98.8 74 22 180/100 (126) 96 01/26/19 00:00 76 01/25/19 22:40 75 28 Room Air 21 01/25/19 22:40 75 28 100 Facial 30 01/25/19 21:32 80 167/82 01/25/19 21:00 Room Air 01/25/19 20:00 97.9 75 20 167/82 (110) 94 01/25/19 20:00 77 Intake and Output 01/25/19 01/26/19 19:00 07:00 Intake Total 360 ml Output Total 800 ml 1850 ml Balance -800 ml -1490 ml Intake Oral 360 ml Output Urine Total 800 ml 1850 ml # Voids 5 Laboratory Tests Test 01/26/19 06:08 01/26/19 12:50 White Blood Count 4.9 K/UL (4.8-10.8) Red Blood Count 4.58 M/UL (4.70-6.10) L Hemoglobin 11.4 G/DL (14.2-18.0) L Hematocrit 37.0 % (42.0-52.0) L Mean Corpuscular Volume 81 FL (80-99) Mean Corpuscular Hemoglobin 25.0 PG (27.0-31.0) L Mean Corpuscular Hemoglobin Concent 30.9 G/DL (32.0-36.0) L Red Cell Distribution Width 15.1 % (11.6-14.8) H Platelet Count 184 K/UL (150-450) Mean Platelet Volume 9.7 FL (6.5-10.1) Neutrophils (%) (Auto) 55.0 % (45.0-75.0) Lymphocytes (%) (Auto) 24.8 % (20.0-45.0) Monocytes (%) (Auto) 12.7 % (1.0-10.0) H Eosinophils (%) (Auto) 4.1 % (0.0-3.0) H Basophils (%) (Auto) 3.4 % (0.0-2.0) H Sodium Level 142 MMOL/L (136-145) Potassium Level 4.1 MMOL/L (3.5-5.1) Chloride Level 105 MMOL/L (98-107) Carbon Dioxide Level 27 MMOL/L (21-32) Anion Gap 10 mmol/L (5-15) Blood Urea Nitrogen 32 mg/dL (7-18) H Creatinine 3.7 MG/DL (0.55-1.30) H Estimat Glomerular Filtration Rate 20.4 mL/min (>60) Glucose Level 100 MG/DL (74-106) Uric Acid 7.9 MG/DL (2.6-7.2) H Calcium Level 8.5 MG/DL (8.5-10.1) Total Bilirubin 0.5 MG/DL (0.2-1.0) Aspartate Amino Transf (AST/SGOT) 22 U/L (15-37) Alanine Aminotransferase (ALT/SGPT) 30 U/L (12-78) Alkaline Phosphatase 108 U/L (46-116) Total Creatine Kinase 354 U/L (26-308) H Troponin I 0.026 ng/mL (0.000-0.056) Pro-B-Type Natriuretic Peptide 743 pg/mL (0-125) H Total Protein 6.3 G/DL (6.4-8.2) L Albumin 3.1 G/DL (3.4-5.0) L Globulin 3.2 g/dL Albumin/Globulin Ratio 1.0 (1.0-2.7) Urine Color Pale yellow Urine Appearance Clear Urine pH 6.5 (4.5-8.0) Urine Specific [place] 1.010 (1.005-1.035) Urine Protein 3+ (NEGATIVE) H Urine Glucose (UA) Negative (NEGATIVE) Urine Ketones Negative (NEGATIVE) Urine Blood 1+ (NEGATIVE) H Urine Nitrite Negative (NEGATIVE) Urine Bilirubin Negative (NEGATIVE) Urine Urobilinogen Normal MG/DL (0.0-1.0) Urine Leukocyte Esterase Negative (NEGATIVE) Urine RBC 0-2 /HPF (0 - 0) H Urine WBC 0 /HPF (0 - 0) Urine Squamous Epithelial Cells None /LPF (NONE/OCC) Urine Bacteria None /HPF (NONE) Urine Eosinophils None seen (NONE SEEN) Urine Random Creatinine Pending Urine Random Microalbumin Pending Urine Random Sodium 102 mmol/L (20-110) Urine Creatinine 63.8 MG/DL (30.0-125.0) Urine Microalbumin/Creatinine Ratio Pending Urine Potassium Timed 24 mmol/L (12-62) Jose Manuel Thapa MD Jan 26, 2019 19:52
--- NOTE | 2019-01-26 19:56 | Cardiology Report ---
APPROVED REPORT EKG Measurement Heart [id number] Sinus rhythm with premature atrial complexes Septal infarct, age undetermined T wave abnormality, consider lateral ischemia Abnormal ECG
--- NOTE | 2019-01-26 19:57 | Cardiology Report ---
APPROVED REPORT EKG Measurement Heart [id number] [place] [id number] Normal sinus rhythm Left axis deviation Nonspecific T wave abnormality Prolonged QT Abnormal ECG
--- NOTE | 2019-01-26 20:02 | Cardiology Report ---
APPROVED REPORT EXAM: Two-dimensional and M-mode echocardiogram with Doppler and color Doppler. INDICATION LV function M-Mode DIMENSIONS IVSd1.5 (0.7-1.1cm)Left Atrium (MM)4.0 (1.6-4.0cm) LVDd4.2 (3.5-5.6cm)Aortic Root3.2 (2.0-3.7cm) PWd2.0 (0.7-1.1cm)Aortic Cusp Exc.1.9 (1.5-2.0cm) LVDs2.2 (2.5-4.0cm) PWs2.4 cm Other Information Technically limited study due to pt's body habitus. Normal left ventricular chamber size, systolic function and wall motion to extent visualized. Left ventricular ejection fraction estimated to be 70 %. Moderate left ventricular hypertrophy. Trivial posterior pericardial effusion. Mild left atrial enlargement. Right cardiac chamber sizes are within normal limits. Focal aortic valve sclerosis with adequate cusp excursion. Thickened mitral valve leaflets with normal excursion. Mitral annulus and aortic root calcification. Pulmonic valve not well visualized. Normal tricuspid valve structure. IVC dilated at 2.6 cm with physiologic collapse suggestive of increased RA pressure. A color flow and spectral Doppler study was performed and revealed: Mild aortic regurgitation. Trace mitral regurgitation. Mitral inflow velocities indicates possible pseudo normalization pattern implying moderately elevated left atrial pressure (Grade II). Trace to mild tricuspid regurgitation. Tricuspid systolic velocities suggests peak right ventricular systolic pressure of 35 mmHg, consistent with borderline mild pulmonary hypertension.
--- NOTE | 2019-01-26 20:13 | Cardiology Progress Note ---
Assessment/Plan Assessment/Plan The patient is seen and examined, full consult note will be dictated soon. Objective Last 24 Hour Vital Signs Date Time Temp Pulse Resp B/P (MAP) Pulse Ox O2 Delivery O2 Flow Rate FiO2 01/26/19 17:25 71 143/78 01/26/19 16:00 71 01/26/19 16:00 97.4 68 24 143/78 (99) 96 01/26/19 13:51 161/96 01/26/19 12:00 96.8 72 23 161/96 (117) 98 01/26/19 12:00 82 01/26/19 09:05 76 159/90 01/26/19 09:04 76 159/90 01/26/19 09:00 Room Air 01/26/19 08:00 97.2 76 20 159/90 (113) 96 01/26/19 08:00 73 01/26/19 06:55 78 18 Room Air 21 01/26/19 06:13 72 18 154/88 (110) 96 01/26/19 05:57 73 181/85 01/26/19 05:45 72 18 94 01/26/19 04:48 181/85 01/26/19 04:40 72 17 95 Facial 30 01/26/19 04:04 98.0 01/26/19 04:00 73 01/26/19 04:00 98.0 70 20 181/85 (117) 96 01/26/19 00:52 169/94 01/26/19 00:45 70 21 100 Facial 30 01/26/19 00:00 98.8 74 22 180/100 (126) 96 01/26/19 00:00 76 01/25/19 22:40 75 28 Room Air 21 01/25/19 22:40 75 28 100 Facial 30 01/25/19 21:32 80 167/82 01/25/19 21:00 Room Air Intake and Output 01/25/19 01/26/19 19:00 07:00 Intake Total 360 ml Output Total 800 ml 1850 ml Balance -800 ml -1490 ml Intake Oral 360 ml Output Urine Total 800 ml 1850 ml # Voids 5 Laboratory Tests Test 01/26/19 06:08 01/26/19 12:50 White Blood Count 4.9 K/UL (4.8-10.8) Red Blood Count 4.58 M/UL (4.70-6.10) L Hemoglobin 11.4 G/DL (14.2-18.0) L Hematocrit 37.0 % (42.0-52.0) L Mean Corpuscular Volume 81 FL (80-99) Mean Corpuscular Hemoglobin 25.0 PG (27.0-31.0) L Mean Corpuscular Hemoglobin Concent 30.9 G/DL (32.0-36.0) L Red Cell Distribution Width 15.1 % (11.6-14.8) H Platelet Count 184 K/UL (150-450) Mean Platelet Volume 9.7 FL (6.5-10.1) Neutrophils (%) (Auto) 55.0 % (45.0-75.0) Lymphocytes (%) (Auto) 24.8 % (20.0-45.0) Monocytes (%) (Auto) 12.7 % (1.0-10.0) H Eosinophils (%) (Auto) 4.1 % (0.0-3.0) H Basophils (%) (Auto) 3.4 % (0.0-2.0) H Sodium Level 142 MMOL/L (136-145) Potassium Level 4.1 MMOL/L (3.5-5.1) Chloride Level 105 MMOL/L (98-107) Carbon Dioxide Level 27 MMOL/L (21-32) Anion Gap 10 mmol/L (5-15) Blood Urea Nitrogen 32 mg/dL (7-18) H Creatinine 3.7 MG/DL (0.55-1.30) H Estimat Glomerular Filtration Rate 20.4 mL/min (>60) Glucose Level 100 MG/DL (74-106) Uric Acid 7.9 MG/DL (2.6-7.2) H Calcium Level 8.5 MG/DL (8.5-10.1) Total Bilirubin 0.5 MG/DL (0.2-1.0) Aspartate Amino Transf (AST/SGOT) 22 U/L (15-37) Alanine Aminotransferase (ALT/SGPT) 30 U/L (12-78) Alkaline Phosphatase 108 U/L (46-116) Total Creatine Kinase 354 U/L (26-308) H Troponin I 0.026 ng/mL (0.000-0.056) Pro-B-Type Natriuretic Peptide 743 pg/mL (0-125) H Total Protein 6.3 G/DL (6.4-8.2) L Albumin 3.1 G/DL (3.4-5.0) L Globulin 3.2 g/dL Albumin/Globulin Ratio 1.0 (1.0-2.7) Urine Color Pale yellow Urine Appearance Clear Urine pH 6.5 (4.5-8.0) Urine Specific [place] 1.010 (1.005-1.035) Urine Protein 3+ (NEGATIVE) H Urine Glucose (UA) Negative (NEGATIVE) Urine Ketones Negative (NEGATIVE) Urine Blood 1+ (NEGATIVE) H Urine Nitrite Negative (NEGATIVE) Urine Bilirubin Negative (NEGATIVE) Urine Urobilinogen Normal MG/DL (0.0-1.0) Urine Leukocyte Esterase Negative (NEGATIVE) Urine RBC 0-2 /HPF (0 - 0) H Urine WBC 0 /HPF (0 - 0) Urine Squamous Epithelial Cells None /LPF (NONE/OCC) Urine Bacteria None /HPF (NONE) Urine Eosinophils None seen (NONE SEEN) Urine Random Creatinine Pending Urine Random Microalbumin Pending Urine Random Sodium 102 mmol/L (20-110) Urine Creatinine 63.8 MG/DL (30.0-125.0) Urine Microalbumin/Creatinine Ratio Pending Urine Potassium Timed 24 mmol/L (12-62) Junaid Nguyễn MD Jan 26, 2019 20:13
[2019-01-26] MEDS: Levemir Flexpen SUBQ SCH (21:00)
--- NOTE | 2019-01-26 21:45 | General Progress Note ---
Progress Note Progress Note [id number] full consult dictated Angelita Templeton MD Jan 26, 2019 21:45
--- NOTE | 2019-01-26 22:01 | Consultation ---
DATE OF CONSULTATION: 01/26/2019 CARDIAC CONSULTATION CONSULTING PHYSICIAN: Jose Manuel Thapa M.D. REFERRING PHYSICIAN: Primo Strauss M.D. REASON FOR REFERRAL: Shortness of breath. HISTORY OF PRESENT ILLNESS: This is a 63-year-old gentleman with history of multiple medical problems. The patient presented to the hospital because of shortness of breath that has been going on for approximately 2 weeks, increasing leg edema, shortness of breath on exertion. Even episode of shortness of breath waking him up but that has been going on more for longer periods of time. . He uses three pillows. He occasionally has lightheadedness and dizziness. He has some pain in the left side of the chest that lasted maybe up to 60 seconds and not specifically exercise-related fact when he walks around for 2 miles although he feels tired, fatigue, and shortness of breath. He does not have any chest pain. There is no palpitations. PAST MEDICAL HISTORY: Positive for history of prior chest pain felt to be noncardiac in origin, hypertensive heart disease, diabetes mellitus, peripheral edema, chronic kidney disease stage 4, history of morbid obesity, renal osteodystrophy, hypertension. No prior history of heart attack. No cancer. No stroke. He does have a history of hepatitis B but no tuberculosis. He does have a history of asthma. Does have history of and a history of hyperthyroidism that was treated apparently. No blood clots, prostate problems, or any other heart problem that he notes. ALLERGIES: He is not allergic to any medications. SOCIAL HISTORY: He never smoked or drank. Also used marijuana previously. REVIEW OF SYSTEMS: GASTROINTESTINAL: Positive for back stools secondary to iron. GENITOURINARY: Negative. PULMONARY: Positive coughing and wheezing. CONSTITUTIONAL: Some sweating. NEUROLOGIC: Negative. PHYSICAL EXAMINATION: GENERAL: Shows to be morbidly obese gentleman in no respiratory distress. NECK: Supple. No jugular venous distention. LUNGS: Relatively clear to auscultation and percussion. CARDIAC: S1 is normal. S2 is normal. Regular rate and rhythm. No heaves or thrills. ABDOMEN: Soft and obese. Positive bowel sounds. EXTREMITIES: There is no clubbing, cyanosis. Edema 1+ in the lower extremities at this time. LABORATORY AND DIAGNOSTIC DATA: A venous duplex of the lower extremities have been performed showed no evidence of deep venous thrombosis. An echocardiogram has been performed, preliminary report appears normal. Final report to be determined. Chest x-ray has been performed showing some pulmonary vascular congestion and bilateral effusions consistent with congestive heart failure initially from two days ago but apparently subsequently have improved. He is -2200 mL with diuretics last night. ASSESSMENT AND PLAN: 1. Diastolic heart failure. 2. Right ventricular enlargement. 3. Diabetes mellitus. 4. Hypertension. 5. Renal insufficiency. 6. Atypical chest pain. Dr. Strauss, this patient was seen in cardiac consultation. The patient's electrocardiogram shows no evidence of ST or T wave abnormalities on the resting EKG and his preliminary echo shows normal systolic function with some evidence of diastolic dysfunction and increased left atrial pressure. His EKG shows normal sinus rhythm, leftward axis, otherwise some nonspecific T-wave changes in 1 aVL and V5 and V6. I am recommending that the patient have repeat cardiac enzymes as well as EKGs. An echocardiogram will be reviewed tomorrow and should have diuretics as kidney function allow as he certainly does have evidence of diastolic heart failure that can be treated. Telemetry observation following renal parameters and cardiac enzymes. Jose Manuel Thapa M.D. DR: Eduin JOB#: [id number] CC:
[2019-01-27] VITALS (7 sets, daily range): BP systolic 143–162; BP diastolic 59–91
--- NOTE | 2019-01-27 02:15 | Consultation ---
DATE OF CONSULTATION: 01/26/2019 NEPHROLOGY CONSULTATION CONSULTING PHYSICIAN: Angelita Templeton M.D. REFERRING PHYSICIAN: Primo Strauss M.D. REASON FOR CONSULTATION: Acute on chronic renal failure. HISTORY OF PRESENT ILLNESS: The patient is a pleasant 63-year-old, male with past medical history significant for history of chronic kidney disease stage 4, history of hypertension, baseline creatinine is about 2.5. He has a history of morbid obesity, sleep apnea, COPD, hyperlipidemia who originally presented to [facility] for evaluation of increasing shortness of breath and increasing lower extremity edema and uncontrolled blood pressure. Apparently the patient found to have accelerated blood pressure about Dr. Strauss's office. The patient was treated and his symptoms improved but over the weekend his blood pressure continue to raise and increasing shortness of breath and orthopnea gotten worse and he was not able to control his blood pressure medication for blood pressure. Upon admission, the patient found to have worsening of the kidney function. I was called for management of renal disease and electrolyte imbalance. PAST MEDICAL HISTORY: 1. History of chronic kidney disease stage 4. 2. History of hypertension. 3. History of morbid obesity. 4. History of sleep apnea. 5. History of CHF. 6. History of COPD. MEDICATIONS: List was reviewed. ALLERGIES: Not known drug allergies. SOCIAL HISTORY: Denies any current history of tobacco, alcohol, or drug use. FAMILY HISTORY: Noncontributory. REVIEW OF SYSTEMS: GENERAL: He complained of generalized weakness. No fever or chills. No night sweats. HEAD AND NECK: Denies any dysphagia, odynophagia, blurry vision, headache, or neck stiffness. PULMONARY: Complained of shortness of breath. No cough. No sputum. CARDIOVASCULAR: Denies any chest pain. Complained of shortness of breath, orthopnea, PND and leg swelling. GASTROINTESTINAL: Denies any nausea, vomiting, diarrhea, hematemesis, or hematochezia. GENITOURINARY: Denies any dysuria, frequency, or hematuria. PHYSICAL EXAMINATION: GENERAL: The patient is a 63-year-old male in no acute distress. His shortness of breath at this point has improved but he continued to have elevated blood pressure. VITAL SIGNS: Current vital signs, temperature of 97, pulse rate of 89, respiratory rate of 20, blood pressure 170/90. HEAD AND NECK: No JVP. No LAD. No thyromegaly. HEENT: Extraocular movements intact. Pupils are reactive to light and accommodation. LUNGS: Bilateral crackles on both sides CARDIAC: Regular rate and rhythm. S1 and S2. No murmur. No rub. ABDOMEN: Obese. Soft, nontender, and nondistended. EXTREMITIES: A 2+ edema. No clubbing. No cyanosis NEUROLOGIC: Cranial nerves II to XII within normal limits. Upper and lower extremities are grossly intact. LABORATORY AND DIAGNOSTIC DATA: Lab values revealed sodium of 142, potassium 4.1, chloride 105, bicarb 27, BUN 32, creatinine of 3.7. AST 22, ALT of 30, alkaline phosphatase of 108. Total protein of 6.3, albumin of 2.1. CBC revealed WBC count of 4.9, hemoglobin of 11.4, hematocrit of 37, and platelet count of 189. Chemistry reveal UA which revealed specific gravity 1.010, protein 3+, blood 1+, wbc's 0 to 2. ASSESSMENT: 1. Acute renal failure. Etiology of acute renal failure is ATN due to unstable hemodynamics. 2. Hypertension emergency. 3. Chronic kidney disease stage 4. 4. A 3+ proteinuria. 5. Uncontrolled hypertension. 6. History of . PLAN: Obtain UA, random urine protein creatinine ratio to calculate the proteinuria, check microalbuminuria, check the urine sodium and creatinine to calculate fractional excretion of sodium, ultrasound of the kidneys, check inputs and outputs, daily weight. Continue with Lasix. Avoid any NSAID or nephrotoxics. At the end, I would like to thank, Dr. Strauss, for allowing me to participate in the care of this patient. Angelita Templeton M.D. DR: Phani JOB#: [id number] CC:
[2019-01-27] MEDS: HydrALAZINE 50mg tab ORAL SCH ×3 (06:23→22:54)
[2019-01-27] MEDS: NovoLOG Insulin Flexpen SUBQ SCH ×4 (06:23→21:00)
[2019-01-27 06:54] LABS: ANION GAP 10 mmol/L (5-15); BLOOD UREA NITROGEN 41 mg/dL (7-18); CALCIUM 8.7 MG/DL (8.5-10.1); CARBON DIOXIDE 27 MMOL/L (21-32); CHLORIDE 102 MMOL/L (98-107); CREATININE 3.8 MG/DL (0.55-1.30); PHOSPHORUS 5.2 MG/DL (2.5-4.9); POTASSIUM 3.7 MMOL/L (3.5-5.1); SODIUM 139 MMOL/L (136-145)
[2019-01-27] MEDS: Timolol 0.5% Op Soln 2.5ml BOTH EYES SCH (08:29)
[2019-01-27] MEDS: Heparin 5000 units/ml inj SUBQ SCH ×2 (08:31→21:41)
[2019-01-27] MEDS: Carvedilol 25mg Tab ORAL SCH ×2 (08:33→21:39)
--- NOTE | 2019-01-27 08:47 | Pulmonology Progress Note ---
Assessment/Plan Problems: (1) Acute respiratory failure (2) Chronic diastolic (congestive) heart failure (3) Acute on chronic renal failure (4) Accelerated hypertension (5) COPD (chronic obstructive pulmonary disease) (6) Obstructive sleep apnea (7) Anemia (8) Obesity (BMI 35.0-39.9 without comorbidity) (9) Diabetes mellitus, type II Assessment/Plan hold lasix monitor BP, Needs better fine tuning check electrolytes in am increased bun/creatinine is secondary to lasix most likely. all notes reviewed. Subjective ROS Limited/Unobtainable: No Interval Events: diuresed 2.7 liters Constitutional: Reports: no symptoms HEENT: Repors: no symptoms Allergies: Coded Allergies: No Known Allergies (Verified , 01/17/12) Objective Last 24 Hour Vital Signs Date Time Temp Pulse Resp B/P (MAP) Pulse Ox O2 Delivery O2 Flow Rate FiO2 01/27/19 08:33 75 154/83 01/27/19 08:33 75 154/83 01/27/19 08:02 79 16 Room Air 21 01/27/19 06:23 162/83 01/27/19 05:21 75 20 95 01/27/19 04:00 97.0 72 18 162/83 (109) 98 01/27/19 03:40 67 01/27/19 03:10 66 16 95 Facial 30 01/27/19 01:39 70 16 99 Facial 30 01/27/19 00:00 97.0 70 18 157/91 (113) 98 01/26/19 23:29 66 01/26/19 23:08 72 20 98 Facial 30 01/26/19 22:07 166/92 01/26/19 22:00 68 166/92 (116) 01/26/19 21:09 68 179/80 01/26/19 21:00 97.4 70 18 179/80 (113) 96 01/26/19 21:00 Room Air 01/26/19 20:24 74 20 Room Air 21 01/26/19 20:00 74 01/26/19 17:25 71 143/78 01/26/19 16:00 71 01/26/19 16:00 97.4 68 24 143/78 (99) 96 01/26/19 13:51 161/96 01/26/19 12:00 96.8 72 23 161/96 (117) 98 01/26/19 12:00 82 01/26/19 09:05 76 159/90 01/26/19 09:04 76 159/90 01/26/19 09:00 Room Air Intake and Output 01/26/19 01/27/19 19:00 07:00 Intake Total 2400 ml Output Total 2900 ml Balance -500 ml Intake Oral 2400 ml Output Urine Total 2900 ml # Voids 8 3 General Appearance: WD/WN HEENT: normocephalic, atraumatic Respiratory/Chest: chest wall non-tender, lungs clear Cardiovascular: normal peripheral pulses, normal rate Abdomen: normal bowel sounds, soft, non tender, no scars Skin: no rash Neurologic/Psychiatric: java spring developer II-XII grossly normal Microbiology Date/Time Source Procedure Growth Status 01/25/19 16:03 Blood Blood Culture - Preliminary NO GROWTH AFTER 24 HOURS Resulted 01/25/19 16:03 Blood Blood Culture - Preliminary NO GROWTH AFTER 24 HOURS Resulted Laboratory Tests 01/26/19 12:50: Urine Color Pale yellow, Urine Appearance Clear, Urine pH 6.5, Urine Specific [place] 1.010, Urine Protein 3+H, Urine Glucose (UA) Negative, Urine Ketones Negative, Urine Blood 1+H, Urine Nitrite Negative, Urine Bilirubin Negative, Urine Urobilinogen Normal, Urine Leukocyte Esterase Negative, Urine RBC 0-2H, Urine WBC 0, Urine Squamous Epithelial Cells None, Urine Bacteria None, Urine Eosinophils None seen, Urine Random Creatinine [Pending], Urine Random Microalbumin [Pending], Urine Random Sodium 102, Urine Creatinine 63.8, Urine Microalbumin/Creatinine Ratio [Pending], Urine Potassium Timed 24 01/27/19 05:59: Sodium Level 139, Potassium Level 3.7, Chloride Level 102, Carbon Dioxide Level 27, Anion Gap 10, Blood Urea Nitrogen 41H, Creatinine 3.8H, Estimat Glomerular Filtration Rate 19.8, Glucose Level 121H, Calcium Level 8.7, Phosphorus Level 5.2H, Magnesium Level 1.8, Troponin I 0.020 Current Medications Medications (Trade) Dose Ordered Sig/Oanh Route PRN Reason Start Time Stop Time Status Last Admin Dose Admin Acetaminophen (Tylenol) 650 mg Q4H PRN ORAL Fever 01/25/19 18:15 02/24/19 18:14 01/26/19 03:34 Albuterol/ Ipratropium (Albuterol/ Ipratropium) 3 ml EVERY 4 HOURS PRN HHN Shortness of Breath 01/25/19 18:15 01/30/19 18:14 Allopurinol (Allopurinol) 300 mg DAILY ORAL 01/26/19 09:00 02/25/19 08:59 01/27/19 08:27 Amlodipine Besylate (Norvasc) 5 mg BID ORAL 01/26/19 18:00 02/25/19 08:59 01/27/19 08:33 Atorvastatin Calcium (Lipitor) 20 mg DAILY ORAL 01/26/19 09:00 02/25/19 08:59 01/27/19 08:28 Carvedilol (Coreg) 25 mg EVERY 12 HOURS ORAL 01/25/19 21:30 02/24/19 21:29 01/27/19 08:33 Dextrose (Dextrose 50%) 25 ml Q30M PRN IV Hypoglycemia 01/25/19 18:15 02/24/19 18:14 Dextrose (Dextrose 50%) 50 ml Q30M PRN IV Hypoglycemia 01/25/19 18:15 02/24/19 18:14 Furosemide (Lasix) 40 mg EVERY 8 HOURS IV 01/25/19 22:00 02/24/19 21:59 01/27/19 06:23 Heparin Sodium (Porcine) (Heparin 5000 units/ml) 5,000 units EVERY 12 HOURS SUBQ 01/25/19 21:00 02/24/19 20:59 01/27/19 08:31 Hydralazine HCl (Apresoline) 100 mg Q8HR ORAL 01/26/19 14:00 02/25/19 13:59 01/27/19 06:23 Insulin Aspart (NovoLOG) BEFORE MEALS AND HS SUBQ 01/25/19 21:00 02/24/19 20:59 Insulin Detemir (Levemir) 7 units QHS SUBQ 01/25/19 21:00 02/24/19 20:59 Ondansetron HCl (Zofran) 4 mg Q6H PRN IVP Nausea & Vomiting 01/25/19 18:15 02/24/19 18:14 Polyethylene Glycol (Miralax) 17 gm DAILYPRN PRN ORAL Constipation 01/25/19 18:15 02/24/19 18:14 Temazepam (Restoril) 15 mg HSPRN PRN ORAL Insomnia 01/25/19 18:15 02/01/19 18:14 Timolol Maleate (Timoptic 0.5% Op Soln) 1 drop DAILY BOTH EYES 01/26/19 09:00 02/25/19 08:59 01/27/19 08:29 Destiny Ribera MD Jan 27, 2019 08:46
--- NOTE | 2019-01-27 17:22 | Internal Med Progress Note ---
Subjective Date of Service: Jan 27, 2019 Physician Name Dany Argueta Attending Physician Primo Strauss MD Current Medications Medications (Trade) Dose Ordered Sig/Oanh Route PRN Reason Start Time Stop Time Status Last Admin Dose Admin Acetaminophen (Tylenol) 650 mg Q4H PRN ORAL Fever 01/25/19 18:15 02/24/19 18:14 01/26/19 03:34 Albuterol/ Ipratropium (Albuterol/ Ipratropium) 3 ml EVERY 4 HOURS PRN HHN Shortness of Breath 01/25/19 18:15 01/30/19 18:14 Allopurinol (Allopurinol) 300 mg DAILY ORAL 01/26/19 09:00 02/25/19 08:59 01/27/19 08:27 Amlodipine Besylate (Norvasc) 5 mg BID ORAL 01/26/19 18:00 02/25/19 08:59 01/27/19 17:01 Atorvastatin Calcium (Lipitor) 20 mg DAILY ORAL 01/26/19 09:00 02/25/19 08:59 01/27/19 08:28 Carvedilol (Coreg) 25 mg EVERY 12 HOURS ORAL 01/25/19 21:30 02/24/19 21:29 01/27/19 08:33 Dextrose (Dextrose 50%) 25 ml Q30M PRN IV Hypoglycemia 01/25/19 18:15 02/24/19 18:14 Dextrose (Dextrose 50%) 50 ml Q30M PRN IV Hypoglycemia 01/25/19 18:15 02/24/19 18:14 Heparin Sodium (Porcine) (Heparin 5000 units/ml) 5,000 units EVERY 12 HOURS SUBQ 01/25/19 21:00 02/24/19 20:59 01/27/19 08:31 Hydralazine HCl (Apresoline) 100 mg Q8HR ORAL 01/26/19 14:00 02/25/19 13:59 01/27/19 13:15 Insulin Aspart (NovoLOG) BEFORE MEALS AND HS SUBQ 01/25/19 21:00 02/24/19 20:59 01/27/19 16:52 Insulin Detemir (Levemir) 7 units QHS SUBQ 01/25/19 21:00 02/24/19 20:59 Ondansetron HCl (Zofran) 4 mg Q6H PRN IVP Nausea & Vomiting 01/25/19 18:15 02/24/19 18:14 Polyethylene Glycol (Miralax) 17 gm DAILYPRN PRN ORAL Constipation 01/25/19 18:15 02/24/19 18:14 Temazepam (Restoril) 15 mg HSPRN PRN ORAL Insomnia 01/25/19 18:15 02/01/19 18:14 Timolol Maleate (Timoptic 0.5% Op Soln) 1 drop DAILY BOTH EYES 01/26/19 09:00 02/25/19 08:59 01/27/19 08:29 Allergies: Coded Allergies: No Known Allergies (Verified , 01/17/12) ROS Limited/Unobtainable: No Constitutional: Reports: no symptoms HEENT: Reports: no symptoms Cardiovascular: Reports: no symptoms Respiratory: Reports: shortness of breath Gastrointestinal/Abdominal: Reports: no symptoms Genitourinary: Reports: no symptoms Neurologic/Psychiatric: Reports: no symptoms Subjective 63 YO M admitted with shortness of breath. Now CHF. Cover for Int Med-Dr Strauss Objective Last Vital Signs Date Time Temp Pulse Resp B/P (MAP) Pulse Ox O2 Delivery O2 Flow Rate FiO2 01/27/19 17:01 77 145/78 01/27/19 16:00 98.4 18 99 01/27/19 09:00 Room Air 01/27/19 08:02 21 Laboratory Tests Test 01/27/19 05:59 Sodium Level 139 MMOL/L (136-145) Potassium Level 3.7 MMOL/L (3.5-5.1) Chloride Level 102 MMOL/L (98-107) Carbon Dioxide Level 27 MMOL/L (21-32) Anion Gap 10 mmol/L (5-15) Blood Urea Nitrogen 41 mg/dL (7-18) H Creatinine 3.8 MG/DL (0.55-1.30) H Estimat Glomerular Filtration Rate 19.8 mL/min (>60) Glucose Level 121 MG/DL (74-106) H Calcium Level 8.7 MG/DL (8.5-10.1) Phosphorus Level 5.2 MG/DL (2.5-4.9) H Magnesium Level 1.8 MG/DL (1.8-2.4) Troponin I 0.020 ng/mL (0.000-0.056) Microbiology Date/Time Source Procedure Growth Status 01/25/19 16:03 Blood Blood Culture - Preliminary NO GROWTH AFTER 24 HOURS Resulted 01/25/19 16:03 Blood Blood Culture - Preliminary NO GROWTH AFTER 24 HOURS Resulted Intake and Output 01/26/19 01/27/19 18:59 06:59 Intake Total 2400 ml Output Total 2900 ml Balance -500 ml Intake Oral 2400 ml Output Urine Total 2900 ml # Voids 8 3 Objective PHYSICAL EXAMINATION: GENERAL: The patient is awake and responsive, in no acute distress. HEAD AND NECK: Pupils are equal and reactive to light. Extraocular movements are intact. Neck was supple. Positive JVD. LUNGS: Good air entry. No wheezing or rales. Decreased air in the bases. HEART: S1 and S2. Distant heart sounds. No gallops. ABDOMEN: Soft, nondistended, and nontender. Morbid obesity. No fluid shift. EXTREMITIES: No cyanosis or clubbing. +2 edema in bilateral lower extremities. NEUROLOGIC: Cranial nerves II through XII grossly intact. Motor is 5/5 in all extremities. Gait is intact. RECTAL: Refused and deferred. GENITOURINARY: Refused and deferred. PSYCHIATRIC: Mood and affect are intact. Assessment/Plan Assessment/Plan ASSESSMENT: 1. Acute CHF exacerbation on chronic with diastolic dysfunction. 2. Morbid obesity. 3. Hypertension. 4. Dyslipidemia. 5. Diabetes type 2. 6. Chronic pedal edema. 7. Obstructive sleep apnea. 8. Chronic kidney disease, stage 3. PLAN: Admit the patient to monitored unit. Discussed case with Dr. Junaid Nguyễn from Cardiology, who knows the patient from prior admission Dr. Angelita Templeton from Nephrology. Code status, Full Code. DVT prophylaxis, heparin subcutaneous. Continue Lasix IV. Dr. Ribera from Pulmonary Critical Care Dany Argueta MD Jan 27, 2019 17:22
--- NOTE | 2019-01-27 18:21 | Cardiology Report ---
APPROVED REPORT EKG Measurement Heart [id number] Sinus rhythm with premature atrial complexes T wave abnormality, consider lateral ischemia or LVH Prolonged QT Abnormal ECG
--- NOTE | 2019-01-27 20:04 | Nephrology Progress Note ---
Assessment/Plan Assessment 1. Acute renal failure. Etiology of acute renal failure is ATN due to unstable hemodynamics. 2. Hypertension emergency. 3. Chronic kidney disease stage 4. 4. A 3+ proteinuria. 5. Uncontrolled hypertension. Plan plan continue lasix monitoring renal function avoid NSAID replace electrolyte as need it daily wt Subjective Constitutional: Reports: no symptoms HEENT: Reports: no symptoms Neurologic/Psychiatric: Reports: no symptoms Subjective alert and awake feeling much better less sob Objective Objective Last 24 Hour Vital Signs Date Time Temp Pulse Resp B/P (MAP) Pulse Ox O2 Delivery O2 Flow Rate FiO2 01/27/19 17:01 77 145/78 01/27/19 16:00 69 01/27/19 16:00 98.4 77 18 145/78 (100) 99 01/27/19 13:15 139/76 01/27/19 12:00 98.4 75 18 143/90 (107) 100 01/27/19 12:00 68 01/27/19 09:00 Room Air 01/27/19 08:33 75 154/83 01/27/19 08:33 75 154/83 01/27/19 08:02 79 16 Room Air 21 01/27/19 08:00 74 01/27/19 08:00 97.0 67 20 154/83 (106) 96 01/27/19 06:23 162/83 01/27/19 05:21 75 20 95 01/27/19 04:00 97.0 72 18 162/83 (109) 98 01/27/19 03:40 67 01/27/19 03:10 66 16 95 Facial 30 01/27/19 01:39 70 16 99 Facial 30 01/27/19 00:00 97.0 70 18 157/91 (113) 98 01/26/19 23:29 66 01/26/19 23:08 72 20 98 Facial 30 01/26/19 22:07 166/92 01/26/19 22:00 68 166/92 (116) 01/26/19 21:09 68 179/80 01/26/19 21:00 97.4 70 18 179/80 (113) 96 01/26/19 21:00 Room Air 01/26/19 20:24 74 20 Room Air 21 Intake and Output 01/26/19 01/27/19 18:59 06:59 Intake Total 2400 ml Output Total 2900 ml Balance -500 ml Intake Oral 2400 ml Output Urine Total 2900 ml # Voids 8 3 Laboratory Tests 01/27/19 05:59: Sodium Level 139, Potassium Level 3.7, Chloride Level 102, Carbon Dioxide Level 27, Anion Gap 10, Blood Urea Nitrogen 41H, Creatinine 3.8H, Estimat Glomerular Filtration Rate 19.8, Glucose Level 121H, Calcium Level 8.7, Phosphorus Level 5.2H, Magnesium Level 1.8, Troponin I 0.020 01/27/19 18:20: Troponin I 0.015 Height (Feet): 5 Height (Inches): 7.00 Weight (Pounds): 290 Objective HEAD AND NECK: No JVP. No LAD. No thyromegaly. HEENT: Extraocular movements intact. Pupils are reactive to light and accommodation. LUNGS: Bilateral crackles on both sides CARDIAC: Regular rate and rhythm. S1 and S2. No murmur. No rub. ABDOMEN: Obese. Soft, nontender, and nondistended. EXTREMITIES: A 2+ edema. No clubbing. No cyanosis NEUROLOGIC: Cranial nerves II to XII within normal limits. Upper and lower extremities are grossly intact. Angelita Templeton MD Jan 27, 2019 20:04
[2019-01-27] MEDS: Levemir Flexpen SUBQ SCH (21:00)
[2019-01-27] MEDS: Bisacodyl EC 5mg tab ORAL PRN (22:54)
--- NOTE | 2019-01-27 23:49 | Cardiology Progress Note ---
Assessment/Plan Assessment/Plan 1. Acute on chronic heart failure with normal EF most likely secondary to combination of CKD as well as accelerated hypertension. Continue the current BP regimen. 2. Accelerated hypertension, most likely the culprit for this acute on chronic congestive heart failure. 3. Chronic kidney disease. 4. Acute kidney injury. The patient's baseline creatinine has been around 2 in the outpatient setting. 5. History of diabetes mellitus, continue aspirin and atorvastatin. 6. Trivial pericardial effusion. 7. Mild pulmonary HTN. Subjective Subjective Sinus rhythm at rate of 70. Objective Last 24 Hour Vital Signs Date Time Temp Pulse Resp B/P (MAP) Pulse Ox O2 Delivery O2 Flow Rate FiO2 01/27/19 23:13 70 27 96 Facial 30 01/27/19 22:56 149/87 (107) 01/27/19 22:54 158/59 01/27/19 21:39 72 158/59 01/27/19 21:00 Room Air 01/27/19 20:30 72 16 Room Air 21 01/27/19 20:00 97.7 77 20 158/59 (92) 95 01/27/19 17:01 77 145/78 01/27/19 16:00 69 01/27/19 16:00 98.4 77 18 145/78 (100) 99 01/27/19 13:15 139/76 01/27/19 12:00 98.4 75 18 143/90 (107) 100 01/27/19 12:00 68 01/27/19 09:00 Room Air 01/27/19 08:33 75 154/83 01/27/19 08:33 75 154/83 01/27/19 08:02 79 16 Room Air 21 01/27/19 08:00 74 01/27/19 08:00 97.0 67 20 154/83 (106) 96 01/27/19 06:23 162/83 01/27/19 05:21 75 20 95 01/27/19 04:00 97.0 72 18 162/83 (109) 98 01/27/19 03:40 67 01/27/19 03:10 66 16 95 Facial 30 01/27/19 01:39 70 16 99 Facial 30 01/27/19 00:00 97.0 70 18 157/91 (113) 98 Intake and Output 01/26/19 01/27/19 19:00 07:00 Intake Total 2400 ml Output Total 2900 ml Balance -500 ml Intake Oral 2400 ml Output Urine Total 2900 ml # Voids 8 3 2D Echo: EF 70%, Trivial Pericard.eff, Mod LVH, LAE, Grade II LVDD, RVSP 35, Mod AR Laboratory Tests Test 01/27/19 05:59 01/27/19 18:20 Sodium Level 139 MMOL/L (136-145) Potassium Level 3.7 MMOL/L (3.5-5.1) Chloride Level 102 MMOL/L (98-107) Carbon Dioxide Level 27 MMOL/L (21-32) Anion Gap 10 mmol/L (5-15) Blood Urea Nitrogen 41 mg/dL (7-18) H Creatinine 3.8 MG/DL (0.55-1.30) H Estimat Glomerular Filtration Rate 19.8 mL/min (>60) Glucose Level 121 MG/DL (74-106) H Calcium Level 8.7 MG/DL (8.5-10.1) Phosphorus Level 5.2 MG/DL (2.5-4.9) H Magnesium Level 1.8 MG/DL (1.8-2.4) Troponin I 0.020 ng/mL (0.000-0.056) 0.015 ng/mL (0.000-0.056) Microbiology Date/Time Source Procedure Growth Status 01/25/19 16:03 Blood Blood Culture - Preliminary NO GROWTH AFTER 24 HOURS Resulted 01/25/19 16:03 Blood Blood Culture - Preliminary NO GROWTH AFTER 24 HOURS Resulted Objective HEENT: Atraumatic and normocephalic. Anicteric. Pupils are equal, round, and reactive to light and accommodation. Extraocular muscles intact. NECK: JVP less than 5 cm. No carotid bruit. Carotid upstrokes 2+ bilaterally. CARDIOVASCULAR: Normal S1 and S2. Regular rate and rhythm. No murmurs, gallops, or rubs. PMI is at fourth intercostal space at the midclavicular line. LUNGS: Diminished breath sounds in both bases. No crackles or rhonchi. ABDOMEN: Soft, nontender, and nondistended. No hepatosplenomegaly. Positive bowel sounds. EXTREMITIES: Bilateral lower extremity edema about 1+. Junaid Nguyễn MD Jan 27, 2019 23:49
[2019-01-28] VITALS: BP 137/80
[2019-01-28 04:00] VITALS: BP 132/83
[2019-01-28 05:53] LABS: BASOPHILS % (AUTO) 3.3 % (0.0-2.0); EOSINOPHILS % (AUTO) 4.8 % (0.0-3.0); HEMATOCRIT 36.9 % (42.0-52.0); HEMOGLOBIN 11.5 G/DL (14.2-18.0); LYMPHOCYTES % (AUTO) 29.5 % (20.0-45.0); MEAN CORPUSCULAR VOLUME 81 FL (80-99); MONOCYTES % (AUTO) 15.1 % (1.0-10.0); NEUTROPHILS % (AUTO) 47.3 % (45.0-75.0); PLATELET COUNT 189 K/UL (150-450); RED BLOOD COUNT 4.57 M/UL (4.70-6.10); RED CELL DISTRIBUTION WIDTH 14.9 % (11.6-14.8); WHITE BLOOD COUNT 4.2 K/UL (4.8-10.8)
[2019-01-28] MEDS: HydrALAZINE 50mg tab ORAL SCH ×3 (06:15→21:38)
[2019-01-28] MEDS: NovoLOG Insulin Flexpen SUBQ SCH ×4 (06:16→21:40)
[2019-01-28 06:42] LABS: ALANINE AMINOTRANSFERASE 27 U/L (12-78); ALBUMIN 2.7 G/DL (3.4-5.0); ALBUMIN/GLOBULIN RATIO 0.7 (1.0-2.7); ALKALINE PHOSPHATASE 97 U/L (46-116); ANION GAP 8 mmol/L (5-15); ASPARTATE AMINO TRANSFERASE 16 U/L (15-37); BILIRUBIN,TOTAL 0.3 MG/DL (0.2-1.0); BLOOD UREA NITROGEN 43 mg/dL (7-18); CALCIUM 8.1 MG/DL (8.5-10.1); CARBON DIOXIDE 28 MMOL/L (21-32); CHLORIDE 104 MMOL/L (98-107); PHOSPHORUS 5.5 MG/DL (2.5-4.9); POTASSIUM 3.6 MMOL/L (3.5-5.1); SODIUM 140 MMOL/L (136-145)
[2019-01-28 08:00] VITALS: BP 146/88
[2019-01-28] MEDS: Bisacodyl EC 5mg tab ORAL PRN (09:09)
[2019-01-28] MEDS: Carvedilol 25mg Tab ORAL SCH ×2 (09:10→21:37)
[2019-01-28] MEDS: Heparin 5000 units/ml inj SUBQ SCH ×2 (09:11→21:39)
[2019-01-28] MEDS: Timolol 0.5% Op Soln 2.5ml BOTH EYES SCH (09:12)
--- NOTE | 2019-01-28 10:48 | Pulmonology Progress Note ---
Assessment/Plan Problems: (1) Acute on chronic renal failure (2) Acute respiratory failure (3) Chronic diastolic (congestive) heart failure (4) Accelerated hypertension (5) COPD (chronic obstructive pulmonary disease) (6) Obstructive sleep apnea (7) Anemia (8) Obesity (BMI 35.0-39.9 without comorbidity) (9) Diabetes mellitus, type II Assessment/Plan bun/ creatinine still rising. no dyspnea monitor BP, better controlled. check electrolytes in am all notes reviewed. Subjective ROS Limited/Unobtainable: No Constitutional: Reports: no symptoms HEENT: Repors: no symptoms Allergies: Coded Allergies: No Known Allergies (Verified , 01/17/12) Objective Last 24 Hour Vital Signs Date Time Temp Pulse Resp B/P (MAP) Pulse Ox O2 Delivery O2 Flow Rate FiO2 01/28/19 09:10 72 146/88 01/28/19 09:10 72 146/88 01/28/19 09:00 Room Air 01/28/19 08:19 67 18 Room Air 21 01/28/19 08:00 70 01/28/19 08:00 98.4 70 20 146/88 (107) 96 01/28/19 06:15 132/83 01/28/19 05:07 70 20 94 01/28/19 04:00 97.7 64 20 132/83 (99) 97 01/28/19 04:00 65 01/28/19 02:58 71 20 96 Facial 30 01/28/19 02:00 73 16 95 Facial 30 01/28/19 00:00 70 01/28/19 00:00 98.1 69 19 137/80 (99) 96 01/27/19 23:13 70 27 96 Facial 30 01/27/19 22:56 149/87 (107) 01/27/19 22:54 158/59 01/27/19 21:39 72 158/59 01/27/19 21:00 Room Air 01/27/19 20:30 72 16 Room Air 21 01/27/19 20:00 72 01/27/19 20:00 97.7 77 20 158/59 (92) 95 01/27/19 17:01 77 145/78 01/27/19 16:00 69 01/27/19 16:00 98.4 77 18 145/78 (100) 99 4/16/19 13:15 139/76 01/27/19 12:00 98.4 75 18 143/90 (107) 100 01/27/19 12:00 68 Intake and Output 01/27/19 01/28/19 19:00 07:00 Intake Total 240 ml Output Total 1200 ml Balance -960 ml Intake Oral 240 ml Output Urine Total 1200 ml # Voids 2 General Appearance: WD/WN HEENT: normocephalic, atraumatic Respiratory/Chest: chest wall non-tender, lungs clear Cardiovascular: normal peripheral pulses, regular rhythm Abdomen: soft, non tender, no organomegaly Genitourinary: normal external genitalia Neurologic/Psychiatric: intermodal customer service II-XII grossly normal, no motor/sensory deficits Microbiology Date/Time Source Procedure Growth Status 01/25/19 16:03 Blood Blood Culture - Preliminary NO GROWTH AFTER 48 HOURS Resulted 01/25/19 16:03 Blood Blood Culture - Preliminary NO GROWTH AFTER 48 HOURS Resulted Laboratory Tests 01/27/19 18:20: Troponin I 0.015 01/28/19 05:25: White Blood Count 4.2L, Red Blood Count 4.57L, Hemoglobin 11.5L, Hematocrit 36.9L, Mean Corpuscular Volume 81, Mean Corpuscular Hemoglobin 25.1L, Mean Corpuscular Hemoglobin Concent 31.1L, Red Cell Distribution Width 14.9H, Platelet Count 189, Mean Platelet Volume 9.4, Neutrophils (%) (Auto) 47.3, Lymphocytes (%) (Auto) 29.5, Monocytes (%) (Auto) 15.1H, Eosinophils (%) (Auto) 4.8H, Basophils (%) (Auto) 3.3H, Sodium Level 140, Potassium Level 3.6, Chloride Level 104, Carbon Dioxide Level 28, Anion Gap 8, Blood Urea Nitrogen 43H, Creatinine 4.0H, Estimat Glomerular Filtration Rate 18.5, Glucose Level 105 , Calcium Level 8.1L, Phosphorus Level 5.5H, Magnesium Level 2.0, Total Bilirubin 0.3, Aspartate Amino Transf (AST/SGOT) 16, Alanine Aminotransferase ( ALT/SGPT) 27, Alkaline Phosphatase 97, Total Protein 6.4, Albumin 2.7L, Globulin 3.7, Albumin/Globulin Ratio 0.7L Current Medications Medications (Trade) Dose Ordered Sig/Oanh Route PRN Reason Start Time Stop Time Status Last Admin Dose Admin Acetaminophen (Tylenol) 650 mg Q4H PRN ORAL Fever 01/25/19 18:15 02/24/19 18:14 01/26/19 03:34 Albuterol/ Ipratropium (Albuterol/ Ipratropium) 3 ml EVERY 4 HOURS PRN HHN Shortness of Breath 01/25/19 18:15 01/30/19 18:14 Allopurinol (Allopurinol) 300 mg DAILY ORAL 01/26/19 09:00 02/25/19 08:59 01/28/19 09:09 Amlodipine Besylate (Norvasc) 5 mg BID ORAL 01/26/19 18:00 02/25/19 08:59 01/28/19 09:10 Atorvastatin Calcium (Lipitor) 20 mg DAILY ORAL 01/26/19 09:00 02/25/19 08:59 01/28/19 09:10 Bisacodyl (Dulcolax) 5 mg DAILYPRN PRN ORAL Constipation 01/27/19 19:15 02/26/19 19:14 01/28/19 09:09 Carvedilol (Coreg) 25 mg EVERY 12 HOURS ORAL 01/25/19 21:30 02/24/19 21:29 01/28/19 09:10 Dextrose (Dextrose 50%) 25 ml Q30M PRN IV Hypoglycemia 01/25/19 18:15 02/24/19 18:14 Dextrose (Dextrose 50%) 50 ml Q30M PRN IV Hypoglycemia 01/25/19 18:15 02/24/19 18:14 Heparin Sodium (Porcine) (Heparin 5000 units/ml) 5,000 units EVERY 12 HOURS SUBQ 01/25/19 21:00 02/24/19 20:59 01/28/19 09:11 Hydralazine HCl (Apresoline) 100 mg Q8HR ORAL 01/26/19 14:00 02/25/19 13:59 01/28/19 06:15 Insulin Aspart (NovoLOG) BEFORE MEALS AND HS SUBQ 01/25/19 21:00 02/24/19 20:59 01/27/19 16:52 Insulin Detemir (Levemir) 7 units QHS SUBQ 01/25/19 21:00 02/24/19 20:59 Ondansetron HCl (Zofran) 4 mg Q6H PRN IVP Nausea & Vomiting 01/25/19 18:15 02/24/19 18:14 Polyethylene Glycol (Miralax) 17 gm DAILYPRN PRN ORAL Constipation 01/25/19 18:15 02/24/19 18:14 Temazepam (Restoril) 15 mg HSPRN PRN ORAL Insomnia 01/25/19 18:15 02/01/19 18:14 Timolol Maleate (Timoptic 0.5% Op Soln) 1 drop DAILY BOTH EYES 01/26/19 09:00 02/25/19 08:59 01/28/19 09:12 Destiny Ribera MD Jan 28, 2019 10:48
[2019-01-28 12:00] VITALS: BP 135/69
[2019-01-28 16:00] VITALS: BP 150/84
--- NOTE | 2019-01-28 18:46 | Internal Med Progress Note ---
Subjective Date of Service: Jan 28, 2019 Physician Name Dany Argueta Attending Physician Primo Strauss MD Current Medications Medications (Trade) Dose Ordered Sig/Oanh Route PRN Reason Start Time Stop Time Status Last Admin Dose Admin Acetaminophen (Tylenol) 650 mg Q4H PRN ORAL Fever 01/25/19 18:15 02/24/19 18:14 01/26/19 03:34 Albuterol/ Ipratropium (Albuterol/ Ipratropium) 3 ml EVERY 4 HOURS PRN HHN Shortness of Breath 01/25/19 18:15 01/30/19 18:14 Allopurinol (Allopurinol) 300 mg DAILY ORAL 01/26/19 09:00 02/25/19 08:59 01/28/19 09:09 Amlodipine Besylate (Norvasc) 5 mg BID ORAL 01/26/19 18:00 02/25/19 08:59 01/28/19 17:06 Atorvastatin Calcium (Lipitor) 20 mg DAILY ORAL 01/29/19 09:00 02/25/19 08:59 Bisacodyl (Dulcolax) 5 mg DAILYPRN PRN ORAL Constipation 01/27/19 19:15 02/26/19 19:14 01/28/19 09:09 Carvedilol (Coreg) 25 mg EVERY 12 HOURS ORAL 01/25/19 21:30 02/24/19 21:29 01/28/19 09:10 Dextrose (Dextrose 50%) 25 ml Q30M PRN IV Hypoglycemia 01/25/19 18:15 02/24/19 18:14 Dextrose (Dextrose 50%) 50 ml Q30M PRN IV Hypoglycemia 01/25/19 18:15 02/24/19 18:14 Heparin Sodium (Porcine) (Heparin 5000 units/ml) 5,000 units EVERY 12 HOURS SUBQ 01/25/19 21:00 02/24/19 20:59 01/28/19 09:11 Hydralazine HCl (Apresoline) 100 mg Q8HR ORAL 01/26/19 14:00 02/25/19 13:59 01/28/19 13:53 Insulin Aspart (NovoLOG) BEFORE MEALS AND HS SUBQ 01/25/19 21:00 02/24/19 20:59 01/28/19 17:05 Insulin Detemir (Levemir) 7 units QHS SUBQ 01/25/19 21:00 02/24/19 20:59 Ondansetron HCl (Zofran) 4 mg Q6H PRN IVP Nausea & Vomiting 01/25/19 18:15 02/24/19 18:14 Polyethylene Glycol (Miralax) 17 gm DAILYPRN PRN ORAL Constipation 01/25/19 18:15 02/24/19 18:14 Temazepam (Restoril) 15 mg HSPRN PRN ORAL Insomnia 01/25/19 18:15 02/01/19 18:14 Timolol Maleate (Timoptic 0.5% Op Soln) 1 drop DAILY BOTH EYES 01/26/19 09:00 02/25/19 08:59 01/28/19 09:12 Allergies: Coded Allergies: No Known Allergies (Verified , 01/17/12) ROS Limited/Unobtainable: No Constitutional: Reports: no symptoms HEENT: Reports: no symptoms Cardiovascular: Reports: no symptoms Respiratory: Reports: shortness of breath Gastrointestinal/Abdominal: Reports: no symptoms Genitourinary: Reports: no symptoms Neurologic/Psychiatric: Reports: no symptoms Subjective 63 YO M admitted with shortness of breath. Now CHF. Cover for Int [facility]-Dr Strauss Objective Last Vital Signs Date Time Temp Pulse Resp B/P (MAP) Pulse Ox O2 Delivery O2 Flow Rate FiO2 01/28/19 17:06 70 150/84 01/28/19 16:00 97.5 20 94 01/28/19 09:00 Room Air 01/28/19 08:19 21 Laboratory Tests Test 01/28/19 05:25 White Blood Count 4.2 K/UL (4.8-10.8) L Red Blood Count 4.57 M/UL (4.70-6.10) L Hemoglobin 11.5 G/DL (14.2-18.0) L Hematocrit 36.9 % (42.0-52.0) L Mean Corpuscular Volume 81 FL (80-99) Mean Corpuscular Hemoglobin 25.1 PG (27.0-31.0) L Mean Corpuscular Hemoglobin Concent 31.1 G/DL (32.0-36.0) L Red Cell Distribution Width 14.9 % (11.6-14.8) H Platelet Count 189 K/UL (150-450) Mean Platelet Volume 9.4 FL (6.5-10.1) Neutrophils (%) (Auto) 47.3 % (45.0-75.0) Lymphocytes (%) (Auto) 29.5 % (20.0-45.0) Monocytes (%) (Auto) 15.1 % (1.0-10.0) H Eosinophils (%) (Auto) 4.8 % (0.0-3.0) H Basophils (%) (Auto) 3.3 % (0.0-2.0) H Sodium Level 140 MMOL/L (136-145) Potassium Level 3.6 MMOL/L (3.5-5.1) Chloride Level 104 MMOL/L (98-107) Carbon Dioxide Level 28 MMOL/L (21-32) Anion Gap 8 mmol/L (5-15) Blood Urea Nitrogen 43 mg/dL (7-18) H Creatinine 4.0 MG/DL (0.55-1.30) H Estimat Glomerular Filtration Rate 18.5 mL/min (>60) Glucose Level 105 MG/DL (74-106) Calcium Level 8.1 MG/DL (8.5-10.1) L Phosphorus Level 5.5 MG/DL (2.5-4.9) H Magnesium Level 2.0 MG/DL (1.8-2.4) Total Bilirubin 0.3 MG/DL (0.2-1.0) Aspartate Amino Transf (AST/SGOT) 16 U/L (15-37) Alanine Aminotransferase (ALT/SGPT) 27 U/L (12-78) Alkaline Phosphatase 97 U/L (46-116) Total Protein 6.4 G/DL (6.4-8.2) Albumin 2.7 G/DL (3.4-5.0) L Globulin 3.7 g/dL Albumin/Globulin Ratio 0.7 (1.0-2.7) L Intake and Output 01/27/19 01/28/19 18:59 06:59 Intake Total 240 ml Output Total 1200 ml Balance -960 ml Intake Oral 240 ml Output Urine Total 1200 ml # Voids 2 Objective PHYSICAL EXAMINATION: GENERAL: The patient is awake and responsive, in no acute distress. HEAD AND NECK: Pupils are equal and reactive to light. Extraocular movements are intact. Neck was supple. Positive JVD. LUNGS: Good air entry. No wheezing or rales. Decreased air in the bases. HEART: S1 and S2. Distant heart sounds. No gallops. ABDOMEN: Soft, nondistended, and nontender. Morbid obesity. No fluid shift. EXTREMITIES: No cyanosis or clubbing. +2 edema in bilateral lower extremities. NEUROLOGIC: Cranial nerves II through XII grossly intact. Motor is 5/5 in all extremities. Gait is intact. RECTAL: Refused and deferred. GENITOURINARY: Refused and deferred. PSYCHIATRIC: Mood and affect are intact. Assessment/Plan Assessment/Plan ASSESSMENT: 1. Acute CHF exacerbation on chronic with diastolic dysfunction. 2. Morbid obesity. 3. Hypertension. 4. Dyslipidemia. 5. Diabetes type 2. 6. Chronic pedal edema. 7. Obstructive sleep apnea. 8. Chronic kidney disease, stage 3. PLAN: Admit the patient to monitored unit. Discussed case with Dr. Junaid Nguyễn from Cardiology, who knows the patient from prior admission Dr. Angelita Templeton from Nephrology. Code status, Full Code. DVT prophylaxis, heparin subcutaneous. Continue Lasix IV. Dr. Ribera from Pulmonary Critical Care Dany Argueta MD Jan 28, 2019 18:46
[2019-01-28 20:00] VITALS: BP 155/82
[2019-01-28] MEDS: Minoxidil 2.5mg tab ORAL SCH (21:38)
[2019-01-28] MEDS: Levemir Flexpen SUBQ SCH (21:39)
--- NOTE | 2019-01-28 22:00 | Consultation ---
DATE OF CONSULTATION: 01/26/2019 CARDIOLOGY CONSULTATION: CONSULTING PHYSICIAN: Junaid Nguyễn M.D. REFERRING PHYSICIAN: Primo Strauss M.D. REASON FOR CONSULTATION: Management of dyspnea. HISTORY OF PRESENT ILLNESS: The patient is a very unfortunate and 63-year-old gentleman, who presents to the hospital with progressive worsening shortness of breath with exertion as well as increased swelling of both lower extremities. The patient is known to me from previous admissions and also in the office. He has history of hypertensive heart disease with chronic diastolic congestive heart failure. The patient also has history of chronic kidney disease. At the time of arrival to the hospital, blood pressure was 160/90 mmHg, heart rate was 89. A 12-lead electrocardiogram was significant for sinus rhythm, heart rate of 88 with no evidence of acute ischemic changes. Initial troponin I level was 0.021; however, proBNP was elevated at 851. The patient was admitted to telemetry for further evaluation and management. Cardiology consultation was made at request of Dr. Strauss for evaluation of possible acute on chronic congestive heart failure. PAST MEDICAL HISTORY: 1. History of hypertensive heart disease with normal LV systolic function with LVEF approximately 65% determined in the past by echocardiography many times. 2. History of hypertension. 3. History of COPD. 4. History of diabetes mellitus. 5. History of chronic kidney disease. FAMILY HISTORY: No premature coronary artery disease in first-degree relatives. ALLERGIES: No known drug allergies. REVIEW OF SYSTEMS: HEENT: Positive for headache, dizziness, and lightheadedness. CONSTITUTIONAL: Positive for generalized weakness, but no fever, chills, or night sweats. CARDIOVASCULAR: Denies any chest pain. Had dyspnea on exertion plus bilateral lower extremity edema. Denies any syncope. Positive for orthopnea and PND. LUNGS: Denies any hemoptysis, cough, or wheezing. GASTROINTESTINAL: Denies any nausea, vomiting, diarrhea, constipation, abdominal pain, or GI bleed. GENITOURINARY: Denies any hematuria, dysuria, or incontinence. NEUROLOGY: Denies any motor dysfunction, sensory deficit, or altered speech. MEDICATIONS: List of medications allopurinol 300 mg p.o. daily, amlodipine 10 mg p.o. daily, aspirin 81 mg p.o. daily, atorvastatin 20 mg p.o. at bedtime, Lumigan eyedrops, carvedilol 25 mg twice daily, Zyrtec 10 mg p.o. daily, vitamin D 1000 units daily, Colace 100 mg p.o. 3 times a day, ferrous sulfate 325 mg once daily, furosemide 40 mg p.o. daily, hydralazine 100 mg 3 times daily, insulin Levemir 7 units subcu at bedtime, Atrovent inhaler 2 puffs 3 times daily, Tradjenta 5 mg p.o. daily, Victoza 1.8 mg subcu daily, multivitamin 1 tablet daily, omeprazole sodium bicarbonate mg 1 tablet p.o. daily, K-Dur 20 mEq p.o. daily, and timolol eye drops daily. PHYSICAL EXAMINATION: VITAL SIGNS: Blood pressure is 160/90, heart rate of 89, respirations 22, O2 saturation of 91% on room air, temperature 97.7 degrees Fahrenheit. GENERAL: The patient is a very pleasant 63-year-old gentleman, in apparent respiratory distress. Alert and oriented x4. HEENT: Atraumatic and normocephalic. Anicteric. Pupils are equal, round, and reactive to light and accommodation. Extraocular muscles intact. NECK: JVP less than 5 cm. No carotid bruit. Carotid upstrokes 2+ bilaterally. CARDIOVASCULAR: Normal S1 and S2. Regular rate and rhythm. No murmurs, gallops, or rubs. PMI is at fourth intercostal space at the midclavicular line. LUNGS: Diminished breath sounds in both bases. No crackles or rhonchi. ABDOMEN: Soft, nontender, and nondistended. No hepatosplenomegaly. Positive bowel sounds. EXTREMITIES: Bilateral lower extremity edema about 1+. IMAGING: Chest x-ray at the time of arrival to the hospital showed congestive heart failure with cardiomegaly and bilateral interstitial edema. Echocardiography showed normal LV systolic function with LVEF of about 70%, moderate LVH, posterior pericardial effusion, mild left atrial enlargement, mild aortic regurgitation, and grade 2 early diastolic dysfunction or pseudo normal LV physiology consistent with moderately elevated left atrial pressure. Also mild pulmonary artery hypertension with RVSP measured at 35 mmHg. LABORATORY FINDINGS: Sodium is 140, potassium is 4.1, chloride 106, bicarbonate 33, BUN of 29, creatinine 3.4, glucose 124, calcium is 8.3. WBC 6.6, hemoglobin of 11.4, hematocrit of 36.9, platelet count 186. ASSESSMENT AND PLAN: The patient is a very unfortunate 63-year-old gentleman seen in Cardiology consultation. 1. Acute on chronic heart failure with normal EF most likely secondary to combination of CKD as well as accelerated hypertension. I would agree with optimization of the blood pressure medication including amlodipine, carvedilol, and hydralazine. The patient's goal of blood pressure is 120/80 mmHg. The patient also requires diuretic in view of chronic kidney disease. 2. Accelerated hypertension, most likely the culprit for this acute on chronic congestive heart failure. 3. Chronic kidney disease. 4. Acute kidney injury. The patient's baseline creatinine has been 2 in the outpatient setting. 5. History of diabetes mellitus. We will consider aspirin and atorvastatin in this patient. I would like to thank Dr. Strauss for the courtesy of this consultation. Junaid Nguyễn M.D. DR: CLAUDIA JOB#: [id number] CC:
--- NOTE | 2019-01-28 23:31 | Diagnostic Imaging Report ---
APPROVED REPORT CPT Code: 93489 Present Symptoms Comments: Swelling BILATERAL: Imaging reveals a patent deep venous system bilaterally. There is no evidence of thrombus within the common femoral, superficial femoral, popliteal or tibial segments. The greater saphenous veins are within normal limits. Doppler indicates normal spontaneous flow within these segments.
--- NOTE | 2019-01-28 23:50 | Cardiology Progress Note ---
Assessment/Plan Assessment/Plan 1. Acute on chronic heart failure with normal EF most likely secondary to combination of CKD as well as accelerated hypertension. Continue the current BP regimen. 2. Accelerated hypertension, most likely the culprit for this acute on chronic congestive heart failure. 3. Chronic kidney disease. 4. Acute kidney injury. The patient's baseline creatinine has been around 2 in the outpatient setting. 5. History of diabetes mellitus, continue aspirin and atorvastatin. 6. Trivial pericardial effusion. 7. Mild pulmonary HTN. Subjective Subjective Sinus rhythm at rate of 80. Objective Last 24 Hour Vital Signs Date Time Temp Pulse Resp B/P (MAP) Pulse Ox O2 Delivery O2 Flow Rate FiO2 01/28/19 22:50 80 21 99 Facial 30 01/28/19 21:38 155/82 01/28/19 21:38 155/82 01/28/19 21:37 65 155/82 01/28/19 21:00 Room Air 01/28/19 20:00 98.2 65 20 155/82 (106) 97 01/28/19 19:18 69 18 Room Air 21 01/28/19 17:06 70 150/84 01/28/19 16:00 97.5 70 20 150/84 (106) 94 01/28/19 16:00 70 01/28/19 13:53 135/69 01/28/19 12:00 98.0 67 20 135/69 (91) 95 01/28/19 12:00 64 01/28/19 09:10 72 146/88 01/28/19 09:10 72 146/88 01/28/19 09:00 Room Air 01/28/19 08:19 67 18 Room Air 21 01/28/19 08:00 70 01/28/19 08:00 98.4 70 20 146/88 (107) 96 01/28/19 06:15 132/83 01/28/19 05:07 70 20 94 01/28/19 04:00 97.7 64 20 132/83 (99) 97 01/28/19 04:00 65 01/28/19 02:58 71 20 96 Facial 30 01/28/19 02:00 73 16 95 Facial 30 01/28/19 00:00 70 01/28/19 00:00 98.1 69 19 137/80 (99) 96 Intake and Output 01/27/19 01/28/19 18:59 06:59 Intake Total 240 ml Output Total 1200 ml Balance -960 ml Intake Oral 240 ml Output Urine Total 1200 ml # Voids 2 2D Echo: EF 70%, Trivial Pericard.eff, Mod LVH, LAE, Grade II LVDD, RVSP 35, Mod A Laboratory Tests Test 01/28/19 05:25 White Blood Count 4.2 K/UL (4.8-10.8) L Red Blood Count 4.57 M/UL (4.70-6.10) L Hemoglobin 11.5 G/DL (14.2-18.0) L Hematocrit 36.9 % (42.0-52.0) L Mean Corpuscular Volume 81 FL (80-99) Mean Corpuscular Hemoglobin 25.1 PG (27.0-31.0) L Mean Corpuscular Hemoglobin Concent 31.1 G/DL (32.0-36.0) L Red Cell Distribution Width 14.9 % (11.6-14.8) H Platelet Count 189 K/UL (150-450) Mean Platelet Volume 9.4 FL (6.5-10.1) Neutrophils (%) (Auto) 47.3 % (45.0-75.0) Lymphocytes (%) (Auto) 29.5 % (20.0-45.0) Monocytes (%) (Auto) 15.1 % (1.0-10.0) H Eosinophils (%) (Auto) 4.8 % (0.0-3.0) H Basophils (%) (Auto) 3.3 % (0.0-2.0) H Sodium Level 140 MMOL/L (136-145) Potassium Level 3.6 MMOL/L (3.5-5.1) Chloride Level 104 MMOL/L (98-107) Carbon Dioxide Level 28 MMOL/L (21-32) Anion Gap 8 mmol/L (5-15) Blood Urea Nitrogen 43 mg/dL (7-18) H Creatinine 4.0 MG/DL (0.55-1.30) H Estimat Glomerular Filtration Rate 18.5 mL/min (>60) Glucose Level 105 MG/DL (74-106) Calcium Level 8.1 MG/DL (8.5-10.1) L Phosphorus Level 5.5 MG/DL (2.5-4.9) H Magnesium Level 2.0 MG/DL (1.8-2.4) Total Bilirubin 0.3 MG/DL (0.2-1.0) Aspartate Amino Transf (AST/SGOT) 16 U/L (15-37) Alanine Aminotransferase (ALT/SGPT) 27 U/L (12-78) Alkaline Phosphatase 97 U/L (46-116) Total Protein 6.4 G/DL (6.4-8.2) Albumin 2.7 G/DL (3.4-5.0) L Globulin 3.7 g/dL Albumin/Globulin Ratio 0.7 (1.0-2.7) L Objective HEENT: Atraumatic and normocephalic. Anicteric. Pupils are equal, round, and reactive to light and accommodation. Extraocular muscles intact. NECK: JVP less than 5 cm. No carotid bruit. Carotid upstrokes 2+ bilaterally. CARDIOVASCULAR: Normal S1 and S2. Regular rate and rhythm. No murmurs, gallops, or rubs. PMI is at fourth intercostal space at the midclavicular line. LUNGS: Diminished breath sounds in both bases. No crackles or rhonchi. ABDOMEN: Soft, nontender, and nondistended. No hepatosplenomegaly. Positive bowel sounds. EXTREMITIES: Bilateral lower extremity edema about 1+. Junaid Nguyễn MD Jan 28, 2019 23:50
[2019-01-29] VITALS: BP 140/80
[2019-01-29 04:00] VITALS: BP 128/74
[2019-01-29] MEDS: HydrALAZINE 50mg tab ORAL SCH ×2 (05:22→14:09)
[2019-01-29] MEDS: NovoLOG Insulin Flexpen SUBQ SCH ×2 (05:26→12:17)
[2019-01-29 07:18] LABS: BASOPHILS % (AUTO) 2.3 % (0.0-2.0); EOSINOPHILS % (AUTO) 4.3 % (0.0-3.0); HEMATOCRIT 39.5 % (42.0-52.0); HEMOGLOBIN 12.2 G/DL (14.2-18.0); LYMPHOCYTES % (AUTO) 25.2 % (20.0-45.0); MEAN CORPUSCULAR VOLUME 81 FL (80-99); MONOCYTES % (AUTO) 12.4 % (1.0-10.0); NEUTROPHILS % (AUTO) 55.8 % (45.0-75.0); PLATELET COUNT 187 K/UL (150-450); RED BLOOD COUNT 4.88 M/UL (4.70-6.10); WHITE BLOOD COUNT 4.5 K/UL (4.8-10.8)
[2019-01-29 07:32] LABS: ALANINE AMINOTRANSFERASE 32 U/L (12-78); ALBUMIN 3.1 G/DL (3.4-5.0); ALBUMIN/GLOBULIN RATIO 0.8 (1.0-2.7); ALKALINE PHOSPHATASE 105 U/L (46-116); ANION GAP 9 mmol/L (5-15); ASPARTATE AMINO TRANSFERASE 24 U/L (15-37); BILIRUBIN,TOTAL 0.4 MG/DL (0.2-1.0); BLOOD UREA NITROGEN 42 mg/dL (7-18); CALCIUM 8.3 MG/DL (8.5-10.1); CARBON DIOXIDE 28 MMOL/L (21-32); CHLORIDE 103 MMOL/L (98-107); CREATININE 3.8 MG/DL (0.55-1.30); POTASSIUM 3.9 MMOL/L (3.5-5.1); SODIUM 140 MMOL/L (136-145)
[2019-01-29 08:00] VITALS: BP 150/79
[2019-01-29] MEDS: Carvedilol 25mg Tab ORAL SCH (08:54)
[2019-01-29] MEDS: Heparin 5000 units/ml inj SUBQ SCH (08:55)
[2019-01-29] MEDS: Minoxidil 2.5mg tab ORAL SCH (08:55)
[2019-01-29] MEDS: Timolol 0.5% Op Soln 2.5ml BOTH EYES SCH (08:57)
[2019-01-29] MEDS ORDERED: Atorvastatin 20mg tab ORAL SCH (09:00)
--- NOTE | 2019-01-29 10:27 | Nephrology Progress Note ---
Assessment/Plan Assessment 1. Acute renal failure. Etiology of acute renal failure is ATN due to unstable hemodynamics. 2. Hypertension emergency. 3. Chronic kidney disease stage 4 with 3+ proteinuria. 4. Uncontrolled hypertension. Plan plan decrease lasix monitoring renal function avoid NSAID replace electrolyte as need it daily wt Subjective Constitutional: Reports: no symptoms Subjective alert and awake feeling much better less sob Objective Objective Last 24 Hour Vital Signs Date Time Temp Pulse Resp B/P (MAP) Pulse Ox O2 Delivery O2 Flow Rate FiO2 01/29/19 09:08 Room Air 01/29/19 08:55 150/79 01/29/19 08:54 75 150/79 01/29/19 08:54 75 150/79 01/29/19 08:28 72 18 Room Air 21 01/29/19 08:00 97.8 75 20 150/79 (102) 96 01/29/19 05:22 128/74 01/29/19 04:00 96.8 61 20 128/74 (92) 94 01/29/19 04:00 63 01/29/19 03:06 70 16 99 Facial 30 01/29/19 01:15 75 26 99 Facial 30 01/29/19 00:00 98.7 60 20 140/80 (100) 99 01/29/19 00:00 63 01/28/19 22:50 80 21 99 Facial 30 01/28/19 21:38 155/82 01/28/19 21:38 155/82 01/28/19 21:37 65 155/82 01/28/19 21:00 Room Air 01/28/19 20:00 63 01/28/19 20:00 98.2 65 20 155/82 (106) 97 01/28/19 19:18 69 18 Room Air 21 01/28/19 17:06 70 150/84 01/28/19 16:00 97.5 70 20 150/84 (106) 94 01/28/19 16:00 70 01/28/19 13:53 135/69 01/28/19 12:00 98.0 67 20 135/69 (91) 95 01/28/19 12:00 64 Intake and Output 01/28/19 01/29/19 19:00 07:00 Intake Total 100 ml Output Total 1800 ml 650 ml Balance -1800 ml -550 ml IV Total 100 ml Output Urine Total 1800 ml 650 ml # Voids 3 Laboratory Tests 01/29/19 06:10: White Blood Count 4.5L, Red Blood Count 4.88, Hemoglobin 12.2L, Hematocrit 39.5L , Mean Corpuscular Volume 81, Mean Corpuscular Hemoglobin 25.0L, Mean Corpuscular Hemoglobin Concent 30.8L, Red Cell Distribution Width 15.0H, Platelet Count 187, Mean Platelet Volume 9.6, Neutrophils (%) (Auto) 55.8, Lymphocytes (%) (Auto) 25.2, Monocytes (%) (Auto) 12.4H, Eosinophils (%) (Auto) 4.3H, Basophils (%) (Auto) 2.3H, Sodium Level 140, Potassium Level 3.9, Chloride Level 103, Carbon Dioxide Level 28, Anion Gap 9, Blood Urea Nitrogen 42H, Creatinine 3.8H, Estimat Glomerular Filtration Rate 19.8, Glucose Level 124H, Calcium Level 8.3L, Total Bilirubin 0.4, Aspartate Amino Transf (AST/SGOT ) 24, Alanine Aminotransferase (ALT/SGPT) 32, Alkaline Phosphatase 105, Pro-B- Type Natriuretic Peptide 212H, Total Protein 7.0, Albumin 3.1L, Globulin 3.9, Albumin/Globulin Ratio 0.8L Height (Feet): 5 Height (Inches): 7.00 Weight (Pounds): 275 Objective HEAD AND NECK: No JVP. No LAD. No thyromegaly. HEENT: Extraocular movements intact. Pupils are reactive to light and accommodation. LUNGS: Bilateral crackles on both sides CARDIAC: Regular rate and rhythm. S1 and S2. No murmur. No rub. ABDOMEN: Obese. Soft, nontender, and nondistended. EXTREMITIES: A 2+ edema. No clubbing. No cyanosis NEUROLOGIC: Cranial nerves II to XII within normal limits. Upper and lower extremities are grossly intact. Angelita Templeton MD Jan 29, 2019 10:27
[2019-01-29] MEDS ORDERED: COREG25 MG ORAL (11:53)
[2019-01-29] MEDS ORDERED: LONITEN2.5 MG ORAL (11:53)
--- NOTE | 2019-01-29 11:55 | Pulmonology Progress Note ---
Assessment/Plan Problems: (1) Acute on chronic renal failure (2) Acute respiratory failure (3) Chronic diastolic (congestive) heart failure (4) Accelerated hypertension (5) COPD (chronic obstructive pulmonary disease) (6) Obstructive sleep apnea (7) Anemia (8) Obesity (BMI 35.0-39.9 without comorbidity) (9) Diabetes mellitus, type II Assessment/Plan bun/ creatinine lower/stable no dyspnea monitor BP, better controlled. dc home, with close f/u with primary all notes reviewed. Subjective ROS Limited/Unobtainable: No Constitutional: Reports: no symptoms HEENT: Repors: no symptoms Allergies: Coded Allergies: No Known Allergies (Verified , 01/17/12) Objective Last 24 Hour Vital Signs Date Time Temp Pulse Resp B/P (MAP) Pulse Ox O2 Delivery O2 Flow Rate FiO2 01/29/19 09:08 Room Air 01/29/19 08:55 150/79 01/29/19 08:54 75 150/79 01/29/19 08:54 75 150/79 01/29/19 08:28 72 18 Room Air 21 01/29/19 08:00 97.8 75 20 150/79 (102) 96 01/29/19 08:00 74 01/29/19 05:22 128/74 01/29/19 04:00 96.8 61 20 128/74 (92) 94 01/29/19 04:00 63 01/29/19 03:06 70 16 99 Facial 30 01/29/19 01:15 75 26 99 Facial 30 01/29/19 00:00 98.7 60 20 140/80 (100) 99 01/29/19 00:00 63 01/28/19 22:50 80 21 99 Facial 30 01/28/19 21:38 155/82 01/28/19 21:38 155/82 01/28/19 21:37 65 155/82 01/28/19 21:00 Room Air 01/28/19 20:00 63 01/28/19 20:00 98.2 65 20 155/82 (106) 97 01/28/19 19:18 69 18 Room Air 21 01/28/19 17:06 70 150/84 01/28/19 16:00 97.5 70 20 150/84 (106) 94 01/28/19 16:00 70 01/28/19 13:53 135/69 01/28/19 12:00 98.0 67 20 135/69 (91) 95 01/28/19 12:00 64 Intake and Output 01/28/19 01/29/19 19:00 07:00 Intake Total 100 ml Output Total 1800 ml 650 ml Balance -1800 ml -550 ml IV Total 100 ml Output Urine Total 1800 ml 650 ml # Voids 3 General Appearance: WD/WN HEENT: normocephalic, atraumatic Respiratory/Chest: chest wall non-tender, lungs clear Cardiovascular: normal peripheral pulses, normal rate Abdomen: soft, non tender, no organomegaly Genitourinary: normal external genitalia Extremities: no clubbing Neurologic/Psychiatric: reports developer II-XII grossly normal Laboratory Tests 01/29/19 06:10: White Blood Count 4.5L, Red Blood Count 4.88, Hemoglobin 12.2L, Hematocrit 39.5L , Mean Corpuscular Volume 81, Mean Corpuscular Hemoglobin 25.0L, Mean Corpuscular Hemoglobin Concent 30.8L, Red Cell Distribution Width 15.0H, Platelet Count 187, Mean Platelet Volume 9.6, Neutrophils (%) (Auto) 55.8, Lymphocytes (%) (Auto) 25.2, Monocytes (%) (Auto) 12.4H, Eosinophils (%) (Auto) 4.3H, Basophils (%) (Auto) 2.3H, Sodium Level 140, Potassium Level 3.9, Chloride Level 103, Carbon Dioxide Level 28, Anion Gap 9, Blood Urea Nitrogen 42H, Creatinine 3.8H, Estimat Glomerular Filtration Rate 19.8, Glucose Level 124H, Calcium Level 8.3L, Total Bilirubin 0.4, Aspartate Amino Transf (AST/SGOT ) 24, Alanine Aminotransferase (ALT/SGPT) 32, Alkaline Phosphatase 105, Pro-B- Type Natriuretic Peptide 212H, Total Protein 7.0, Albumin 3.1L, Globulin 3.9, Albumin/Globulin Ratio 0.8L Current Medications Medications (Trade) Dose Ordered Sig/Oanh Route PRN Reason Start Time Stop Time Status Last Admin Dose Admin Acetaminophen (Tylenol) 650 mg Q4H PRN ORAL Fever 01/25/19 18:15 02/24/19 18:14 01/26/19 03:34 Albuterol/ Ipratropium (Albuterol/ Ipratropium) 3 ml EVERY 4 HOURS PRN HHN Shortness of Breath 01/25/19 18:15 01/30/19 18:14 Allopurinol (Allopurinol) 300 mg DAILY ORAL 01/26/19 09:00 02/25/19 08:59 01/29/19 08:54 Amlodipine Besylate (Norvasc) 5 mg BID ORAL 01/26/19 18:00 02/25/19 08:59 01/29/19 08:54 Atorvastatin Calcium (Lipitor) 20 mg DAILY ORAL 01/29/19 09:00 02/25/19 08:59 01/29/19 08:54 Bisacodyl (Dulcolax) 5 mg DAILYPRN PRN ORAL Constipation 01/27/19 19:15 02/26/19 19:14 01/28/19 09:09 Carvedilol (Coreg) 25 mg EVERY 12 HOURS ORAL 01/25/19 21:30 02/24/19 21:29 01/29/19 08:54 Dextrose (Dextrose 50%) 25 ml Q30M PRN IV Hypoglycemia 01/25/19 18:15 02/24/19 18:14 Dextrose (Dextrose 50%) 50 ml Q30M PRN IV Hypoglycemia 01/25/19 18:15 02/24/19 18:14 Heparin Sodium (Porcine) (Heparin 5000 units/ml) 5,000 units EVERY 12 HOURS SUBQ 01/25/19 21:00 02/24/19 20:59 01/29/19 08:55 Hydralazine HCl (Apresoline) 100 mg Q8HR ORAL 01/26/19 14:00 02/25/19 13:59 01/29/19 05:22 Insulin Aspart (NovoLOG) BEFORE MEALS AND HS SUBQ 01/25/19 21:00 02/24/19 20:59 01/29/19 05:26 Insulin Detemir (Levemir) 7 units QHS SUBQ 01/25/19 21:00 02/24/19 20:59 01/28/19 21:39 Minoxidil (Loniten) 2.5 mg Q12HR ORAL 01/28/19 21:00 02/27/19 20:59 01/29/19 08:55 Ondansetron HCl (Zofran) 4 mg Q6H PRN IVP Nausea & Vomiting 01/25/19 18:15 02/24/19 18:14 Polyethylene Glycol (Miralax) 17 gm DAILYPRN PRN ORAL Constipation 01/25/19 18:15 02/24/19 18:14 Temazepam (Restoril) 15 mg HSPRN PRN ORAL Insomnia 01/25/19 18:15 02/01/19 18:14 Timolol Maleate (Timoptic 0.5% Op Soln) 1 drop DAILY BOTH EYES 01/26/19 09:00 02/25/19 08:59 01/29/19 08:57 Destiny Ribera MD Jan 29, 2019 11:55
[2019-01-29 12:00] VITALS: BP 139/78
[2019-01-29 14:09] VITALS: BP 130/70
--- NOTE | 2019-01-29 16:12 | Internal Med Progress Note ---
Subjective Date of Service: Jan 29, 2019 Physician Name Dany Argueta Attending Physician Primo Strauss MD Current Medications Medications (Trade) Dose Ordered Sig/Oanh Route PRN Reason Start Time Stop Time Status Last Admin Dose Admin Acetaminophen (Tylenol) 650 mg Q4H PRN ORAL Fever 01/25/19 18:15 02/24/19 18:14 01/26/19 03:34 Albuterol/ Ipratropium (Albuterol/ Ipratropium) 3 ml EVERY 4 HOURS PRN HHN Shortness of Breath 01/25/19 18:15 01/30/19 18:14 Allopurinol (Allopurinol) 300 mg DAILY ORAL 01/26/19 09:00 02/25/19 08:59 01/29/19 08:54 Amlodipine Besylate (Norvasc) 5 mg BID ORAL 01/26/19 18:00 02/25/19 08:59 01/29/19 08:54 Atorvastatin Calcium (Lipitor) 20 mg DAILY ORAL 01/29/19 09:00 02/25/19 08:59 01/29/19 08:54 Bisacodyl (Dulcolax) 5 mg DAILYPRN PRN ORAL Constipation 01/27/19 19:15 02/26/19 19:14 01/28/19 09:09 Carvedilol (Coreg) 25 mg EVERY 12 HOURS ORAL 01/25/19 21:30 02/24/19 21:29 01/29/19 08:54 Dextrose (Dextrose 50%) 25 ml Q30M PRN IV Hypoglycemia 01/25/19 18:15 02/24/19 18:14 Dextrose (Dextrose 50%) 50 ml Q30M PRN IV Hypoglycemia 01/25/19 18:15 02/24/19 18:14 Heparin Sodium (Porcine) (Heparin 5000 units/ml) 5,000 units EVERY 12 HOURS SUBQ 01/25/19 21:00 02/24/19 20:59 01/29/19 08:55 Hydralazine HCl (Apresoline) 100 mg Q8HR ORAL 01/26/19 14:00 02/25/19 13:59 01/29/19 14:09 Insulin Aspart (NovoLOG) BEFORE MEALS AND HS SUBQ 01/25/19 21:00 02/24/19 20:59 01/29/19 12:17 Insulin Detemir (Levemir) 7 units QHS SUBQ 01/25/19 21:00 02/24/19 20:59 01/28/19 21:39 Minoxidil (Loniten) 2.5 mg Q12HR ORAL 01/28/19 21:00 02/27/19 20:59 01/29/19 08:55 Ondansetron HCl (Zofran) 4 mg Q6H PRN IVP Nausea & Vomiting 01/25/19 18:15 02/24/19 18:14 Polyethylene Glycol (Miralax) 17 gm DAILYPRN PRN ORAL Constipation 01/25/19 18:15 02/24/19 18:14 Temazepam (Restoril) 15 mg HSPRN PRN ORAL Insomnia 01/25/19 18:15 02/01/19 18:14 Timolol Maleate (Timoptic 0.5% Op Soln) 1 drop DAILY BOTH EYES 01/26/19 09:00 02/25/19 08:59 01/29/19 08:57 Allergies: Coded Allergies: No Known Allergies (Verified , 01/17/12) Constitutional: Reports: no symptoms HEENT: Reports: no symptoms Cardiovascular: Reports: no symptoms Respiratory: Reports: shortness of breath Gastrointestinal/Abdominal: Reports: no symptoms Genitourinary: Reports: no symptoms Neurologic/Psychiatric: Reports: no symptoms Subjective 63 YO M admitted with shortness of breath. Now CHF. Cover for Int Brent-Dr Strauss Objective Last Vital Signs Date Time Temp Pulse Resp B/P (MAP) Pulse Ox O2 Delivery O2 Flow Rate FiO2 01/29/19 14:09 130/70 01/29/19 12:00 67 01/29/19 12:00 98.2 20 95 01/29/19 09:08 Room Air 01/29/19 08:28 21 Laboratory Tests Test 01/29/19 06:10 White Blood Count 4.5 K/UL (4.8-10.8) L Red Blood Count 4.88 M/UL (4.70-6.10) Hemoglobin 12.2 G/DL (14.2-18.0) L Hematocrit 39.5 % (42.0-52.0) L Mean Corpuscular Volume 81 FL (80-99) Mean Corpuscular Hemoglobin 25.0 PG (27.0-31.0) L Mean Corpuscular Hemoglobin Concent 30.8 G/DL (32.0-36.0) L Red Cell Distribution Width 15.0 % (11.6-14.8) H Platelet Count 187 K/UL (150-450) Mean Platelet Volume 9.6 FL (6.5-10.1) Neutrophils (%) (Auto) 55.8 % (45.0-75.0) Lymphocytes (%) (Auto) 25.2 % (20.0-45.0) Monocytes (%) (Auto) 12.4 % (1.0-10.0) H Eosinophils (%) (Auto) 4.3 % (0.0-3.0) H Basophils (%) (Auto) 2.3 % (0.0-2.0) H Sodium Level 140 MMOL/L (136-145) Potassium Level 3.9 MMOL/L (3.5-5.1) Chloride Level 103 MMOL/L (98-107) Carbon Dioxide Level 28 MMOL/L (21-32) Anion Gap 9 mmol/L (5-15) Blood Urea Nitrogen 42 mg/dL (7-18) H Creatinine 3.8 MG/DL (0.55-1.30) H Estimat Glomerular Filtration Rate 19.8 mL/min (>60) Glucose Level 124 MG/DL (74-106) H Calcium Level 8.3 MG/DL (8.5-10.1) L Total Bilirubin 0.4 MG/DL (0.2-1.0) Aspartate Amino Transf (AST/SGOT) 24 U/L (15-37) Alanine Aminotransferase (ALT/SGPT) 32 U/L (12-78) Alkaline Phosphatase 105 U/L (46-116) Pro-B-Type Natriuretic Peptide 212 pg/mL (0-125) H Total Protein 7.0 G/DL (6.4-8.2) Albumin 3.1 G/DL (3.4-5.0) L Globulin 3.9 g/dL Albumin/Globulin Ratio 0.8 (1.0-2.7) L Intake and Output 01/28/19 01/29/19 19:00 07:00 Intake Total 100 ml Output Total 1800 ml 650 ml Balance -1800 ml -550 ml IV Total 100 ml Output Urine Total 1800 ml 650 ml # Voids 3 Objective PHYSICAL EXAMINATION: GENERAL: The patient is awake and responsive, in no acute distress. HEAD AND NECK: Pupils are equal and reactive to light. Extraocular movements are intact. Neck was supple. Positive JVD. LUNGS: Good air entry. No wheezing or rales. Decreased air in the bases. HEART: S1 and S2. Distant heart sounds. No gallops. ABDOMEN: Soft, nondistended, and nontender. Morbid obesity. No fluid shift. EXTREMITIES: No cyanosis or clubbing. +2 edema in bilateral lower extremities. NEUROLOGIC: Cranial nerves II through XII grossly intact. Motor is 5/5 in all extremities. Gait is intact. RECTAL: Refused and deferred. GENITOURINARY: Refused and deferred. PSYCHIATRIC: Mood and affect are intact. Assessment/Plan Assessment/Plan ASSESSMENT: 1. Acute CHF exacerbation on chronic with diastolic dysfunction. 2. Morbid obesity. 3. Hypertension. 4. Dyslipidemia. 5. Diabetes type 2. 6. Chronic pedal edema. 7. Obstructive sleep apnea. 8. Chronic kidney disease, stage 3. PLAN: Admit the patient to monitored unit. Discussed case with Dr. Junaid Nguyễn from Cardiology, who knows the patient from prior admission Dr. Angelita Templeton from Nephrology. Code status, Full Code. DVT prophylaxis, heparin subcutaneous. Continue Lasix IV. Dr. Ribera from Pulmonary Critical Care Dany Argueta MD Jan 29, 2019 16:12
--- NOTE | 2019-01-29 20:11 | Cardiology Progress Note ---
Assessment/Plan Assessment/Plan 1. Acute on chronic heart failure with normal EF most likely secondary to combination of CKD as well as accelerated hypertension. Continue the current BP regimen. 2. Accelerated hypertension, most likely the culprit for this acute on chronic congestive heart failure. 3. Chronic kidney disease. 4. Acute kidney injury. The patient's baseline creatinine has been around 2 in the outpatient setting. 5. History of diabetes mellitus, continue aspirin and atorvastatin. 6. Trivial pericardial effusion. 7. Mild pulmonary HTN. Subjective Subjective Sinus rhythm at rate of 67. Objective Last 24 Hour Vital Signs Date Time Temp Pulse Resp B/P (MAP) Pulse Ox O2 Delivery O2 Flow Rate FiO2 01/29/19 14:09 130/70 01/29/19 12:00 67 01/29/19 12:00 98.2 69 20 139/78 (98) 95 01/29/19 09:08 Room Air 01/29/19 08:55 150/79 01/29/19 08:54 75 150/79 01/29/19 08:54 75 150/79 01/29/19 08:28 72 18 Room Air 21 01/29/19 08:00 97.8 75 20 150/79 (102) 96 01/29/19 08:00 74 01/29/19 05:22 128/74 01/29/19 04:00 96.8 61 20 128/74 (92) 94 01/29/19 04:00 63 01/29/19 03:06 70 16 99 Facial 30 01/29/19 01:15 75 26 99 Facial 30 01/29/19 00:00 98.7 60 20 140/80 (100) 99 01/29/19 00:00 63 01/28/19 22:50 80 21 99 Facial 30 01/28/19 21:38 155/82 01/28/19 21:38 155/82 01/28/19 21:37 65 155/82 01/28/19 21:00 Room Air Intake and Output 01/28/19 01/29/19 19:00 07:00 Intake Total 100 ml Output Total 1800 ml 650 ml Balance -1800 ml -550 ml IV Total 100 ml Output Urine Total 1800 ml 650 ml # Voids 3 2D Echo: EF 70%, Trivial Pericard.eff, Mod LVH, LAE, Grade II LVDD, RVSP 35, Mod AR Laboratory Tests Test 01/29/19 06:10 White Blood Count 4.5 K/UL (4.8-10.8) L Red Blood Count 4.88 M/UL (4.70-6.10) Hemoglobin 12.2 G/DL (14.2-18.0) L Hematocrit 39.5 % (42.0-52.0) L Mean Corpuscular Volume 81 FL (80-99) Mean Corpuscular Hemoglobin 25.0 PG (27.0-31.0) L Mean Corpuscular Hemoglobin Concent 30.8 G/DL (32.0-36.0) L Red Cell Distribution Width 15.0 % (11.6-14.8) H Platelet Count 187 K/UL (150-450) Mean Platelet Volume 9.6 FL (6.5-10.1) Neutrophils (%) (Auto) 55.8 % (45.0-75.0) Lymphocytes (%) (Auto) 25.2 % (20.0-45.0) Monocytes (%) (Auto) 12.4 % (1.0-10.0) H Eosinophils (%) (Auto) 4.3 % (0.0-3.0) H Basophils (%) (Auto) 2.3 % (0.0-2.0) H Sodium Level 140 MMOL/L (136-145) Potassium Level 3.9 MMOL/L (3.5-5.1) Chloride Level 103 MMOL/L (98-107) Carbon Dioxide Level 28 MMOL/L (21-32) Anion Gap 9 mmol/L (5-15) Blood Urea Nitrogen 42 mg/dL (7-18) H Creatinine 3.8 MG/DL (0.55-1.30) H Estimat Glomerular Filtration Rate 19.8 mL/min (>60) Glucose Level 124 MG/DL (74-106) H Calcium Level 8.3 MG/DL (8.5-10.1) L Total Bilirubin 0.4 MG/DL (0.2-1.0) Aspartate Amino Transf (AST/SGOT) 24 U/L (15-37) Alanine Aminotransferase (ALT/SGPT) 32 U/L (12-78) Alkaline Phosphatase 105 U/L (46-116) Pro-B-Type Natriuretic Peptide 212 pg/mL (0-125) H Total Protein 7.0 G/DL (6.4-8.2) Albumin 3.1 G/DL (3.4-5.0) L Globulin 3.9 g/dL Albumin/Globulin Ratio 0.8 (1.0-2.7) L Objective HEENT: Atraumatic and normocephalic. Anicteric. Pupils are equal, round, and reactive to light and accommodation. Extraocular muscles intact. NECK: JVP less than 5 cm. No carotid bruit. Carotid upstrokes 2+ bilaterally. CARDIOVASCULAR: Normal S1 and S2. Regular rate and rhythm. No murmurs, gallops, or rubs. PMI is at fourth intercostal space at the midclavicular line. LUNGS: Diminished breath sounds in both bases. No crackles or rhonchi. ABDOMEN: Soft, nontender, and nondistended. No hepatosplenomegaly. Positive bowel sounds. EXTREMITIES: Bilateral lower extremity edema about 1+. Junaid Nguyễn MD Jan 29, 2019 20:11
--- NOTE | 2019-01-30 12:57 | Discharge Summary ---
Discharge Summary Discharge Summary _ DATE OF ADMISSION: 01/25/2019 DATE OF DISCHARGE: 01/29/2019 ADMITTING MD: Dr. Primo Strauss CONSULTANTS: Dr. Dsetiny Templeton [facility] HOSPITAL COURSE: Patient is a 63-year-old -[place] male, with past medical history significant for congestive heart failure, hypertension, history of diabetes type 2, morbid obesity, chronic kidney disease stage III, history of dyslipidemia, obstructive sleep apnea, who presented to the hospital complaining of leg edema, shortness of breath and uncontrolled type pressure. The patient was seen in the clinic a week prior and was noted to have mildly elevated blood pressure. He denied shortness of breath or chest pain. He was advised if status did not improve, to present to emergency room. He complained about shortness of breath, pedal edema and elevated blood pressure. He then presented to ED for further evaluation. On evaluation at the ED, blood pressure was 160/90, heart rate 92. He was saturating 91% on room air. Blood work showed BNP of 851. Troponin was 0.01. Chest x-ray showed evidence of congestive heart failure with cardiomegaly and bilateral interstitial edema. He was given IV Lasix. He was then admitted for acute CHF exacerbation with uncontrolled hypertension and hypertensive urgency. He underwent cardiac evaluation. EKG did not show any evidence of ST or T wave abnormalities. Echocardiogram showed normal systolic function with evidence of diastolic dysfunction and increased left atrial pressure. There was trivial pericardial effusion. Troponin was negative, however, proBNP was elevated. Antihypertensives were optimized. He was given IV diuretic. Kidney function was monitored. Patient has history of chronic kidney disease with baseline creatinine of 2. He was given aspirin and atorvastatin. Patient is on Coreg, hydralazine and amlodipine for blood pressure control. There was increased in BUN/creatinine. Lasix was discontinued. Repeat chest x- ray showed improved congestion. Blood pressure was still uncontrolled, he was eventually started on minoxidil. Blood pressure was controlled. He was breathing better. Renal function was stable. He was eventually cleared for discharge home. FINAL DIAGNOSES: Acute on chronic diastolic heart failure with normal EF, most likely secondary to combination of CKD as well as accelerated hypertension Accelerated hypertension Chronic kidney disease, stage III Acute kidney injury Diabetes mellitus Trivial pericardial effusion Mild pulmonary hypertension Obesity Dyslipidemia Chronic pedal edema Obstructive sleep apnea Anemia COPD DISPOSITION: Patient was discharged home. DISCHARGE MEDICATIONS: Refer to Discharge Medication List. DISCHARGE INSTRUCTIONS: Follow-up with in a week. I have been assigned to complete a discharge summary on this account, I was not involved with the patient's management. Blanca Corley NP Jan 30, 2019 12:57
== END 2019-01-29 16:40 | disposition home or self-care (01) | DRG 291 ==
LOC: EMR 16:21 → 2E 16:35 → EDBEDREQ 17:11
DX: I13.0 Hypertensive heart and chronic kidney disease with heart failure and stage 1 through stage 4 chronic kidney disease, or unspecified chronic kidney disease (principal); I50.33 Acute on chronic diastolic (congestive) heart failure; N17.0 Acute kidney failure with tubular necrosis; J96.00 Acute respiratory failure, unspecified whether with hypoxia or hypercapnia; Z68.41 Body mass index [BMI] 40.0-44.9, adult; N18.4 Chronic kidney disease, stage 4 (severe); E11.22 Type 2 diabetes mellitus with diabetic chronic kidney disease; N18.3 Chronic kidney disease, stage 3 (moderate); G47.33 Obstructive sleep apnea (adult) (pediatric); E66.01 Morbid (severe) obesity due to excess calories; E78.5 Hyperlipidemia, unspecified; I27.20 Pulmonary hypertension, unspecified; I25.5 Ischemic cardiomyopathy; J44.9 Chronic obstructive pulmonary disease, unspecified; R07.89 Other chest pain
CPT/HCPCS: 36415; 71045; 80048; 80053; 81001; 82043; 82550; 82553; 82570; 82962; 83735; 83880; 84100; 84133; 84300; 84484; 84550; 85025; 87040; 89050; 93005; 93306; 93970; 94660; 94664; 96374; 99285; J1815; J8499; S5561

== ENCOUNTER 2019-02-02 09:57 | Outpatient (CLI) | payer MEDICARE, OTHER ==
[~2019-02-02 09:57] MED LIST changes: +COREG25 MG ORAL; +LONITEN2.5 MG ORAL
--- NOTE | 2019-02-02 11:51 | Diagnostic Imaging Report ---
Indication: Pain for 3 weeks Technique: 3 views right hand Comparison: none Findings: There is mild narrowing of the first metacarpophalangeal joint, with slight remodeling of the adjacent articular surfaces and small osteophytes. Osseous fragment projects at the anterior aspect of the base of the third distal phalanx. This appears sclerotic. A tiny osseous opacity projects at the posterior base of the first distal phalanx. On the AP view this appears corticated. No other evidence of fracture. No dislocations. There is ulnar minus variance incidentally noted. Impression: Tiny corticated osseous opacity projecting posterior to the base of the first distal phalanx. Of doubtful significance, although could represent a small old avulsion fracture. Correlate with clinical findings Sclerotic osseous opacity projecting at the anterior base of the third distal phalanx. Could likewise reflect an old avulsion injury. No acute process otherwise Evidence of degenerative change of the first metacarpophalangeal joint.
== END 2019-02-02 11:57 | disposition home or self-care (01) ==
LOC: RAD 09:57
DX: M25.541 Pain in joints of right hand (principal)

== ENCOUNTER 2020-06-14 13:52 | Emergency (ER) | payer MEDICARE, OTHER ==
[~2020-06-14] VITALS: Ht 170.2 cm; Wt 127.0 kg
[2020-06-14 14:00] VITALS: BP 78/84
--- NOTE | 2020-06-14 14:00 | NUR ---
ED Nurse Note: Patient brought in to ER by cousin due to SOB and Lt side of chest pain radiates to Rt chest 07/23 started this morning. pt has h/o CHF and asthma. pt aao x4 and ambulatory. SOB and labored breathing noted. restless due to chest pain and SOB but cooperative. pt denied cough or fever. pt is in gown and on telemetry monitor.
--- NOTE | 2020-06-14 14:12 | Emergency Room Report ---
History of Present Illness General Chief Complaint: Chest Pain Source: Patient Present Illness HPI Disclaimer: Please note that this report is being documented using [employer] technology. This can lead to erroneous entry secondary to incorrect interpretation by the dictating instrument. HPI: 64-year-old male history of CKD, CHF with preserved ejection fraction, hypertension, obesity presents for evaluation of shortness of breath. Patient reports worsening swelling in the lower extremities and increasing exertional dyspnea over the past 2 weeks. He is compliant with his Lasix therapy, 40 mg twice daily last dose was this morning. This morning he awoke complaining of shortness of breath, worsening exertional dyspnea and lightheadedness. He noted an epigastric discomfort which he described as burning and worse with bending and twisting motion as well as intermittent chest pressure. Currently denies chest pain or pressure at this time. Reports mild shortness of breath when lying flat that is improved sitting forward. He reports nonproductive cough. Reports subjective fevers and chills. No recent COVID testing. No known sick contacts. Otherwise, denies abdominal pain, vomiting, diarrhea, rash , headaches, loss of conscious, URI symptoms. PMH: Hypertension, CHF with preserved EF, CKD PSH: Knee replacement Allergies: Denies Social Hx: Non-smoker Allergies: Coded Allergies: No Known Allergies (Verified , 01/17/12) COVID-19 Screening Contact w/high risk pt: No Experienced COVID-19 symptoms?: Yes COVID-19 Testing performed QA ENGINEER: No Nursing Documentation-PMH Hx Cardiac Problems: Yes - CHF Hx Hypertension: Yes Hx Pacemaker: No Hx COPD: Yes Hx Diabetes: Yes - gout Hx Cancer: No Hx Gastrointestinal Problems: Yes Hx Dialysis: No Hx Neurological Problems: No Hx Cerebrovascular Accident: No Hx Seizures: No Hx Headaches: Yes Review of Systems All Other Systems: negative except mentioned in HPI Physical Exam Vital Signs Date Time Temp Pulse Resp B/P (MAP) Pulse Ox O2 Delivery O2 Flow Rate FiO2 06/14/20 13:56 97.9 62 12 181/78 (112) 97 Room Air General: Awake and alert, no acute distress HEENT: NC/AT. EOMI. Cardiovascular: RRR. S1 and S2 normal. No murmur appreciated Resp: Normal work of breathing. No cough, wheezing. Scattered crackles at bases bilaterally. Abdomen: Abdomen is soft, nondistended. Nontender. Obese abdomen. Skin: Intact. No abrasions, laceration or rash over the exposed skin MSK: Normal tone and bulk. Moving all extremities. No obvious deformity. 2+ pitting edema around the ankles bilaterally. Neuro: Awake and alert. Mentating appropriately. Procedures Critical Care Time Critical Care Time Total critical care time: Approximately 45 minutes Due to a high probability of clinically significant, life threatening deterioration, the patient required the highest level of preparedness to intervene emergently and I personally spent this critical care time directly and personally managing the patient. This critical care time included obtaining a history, examining the patient, pulse oximetry, ordering and reviewing studies , ordering treatments, evaluating response to treatment and updating management plan as needed, frequent reassessment and discussion with other providers as well as arranging for ultimate disposition. This critical to care time was performed to assess and manage the high probability of life-threatening deterioration that could result in multiorgan failure. This critical care time is separate from the separately billable procedures and treating other patients. Medical Decision Making Diagnostic Impression: Primary Impression: CHF exacerbation Additional Impressions: Hypomagnesemia CKD (chronic kidney disease) ER Course 64-year-old male history of CHF and CKD presenting for evaluation of shortness of breath and lower extremity edema. Differential includes was not limited to CHF exacerbation, worsening kidney failure, ACS, pneumonia, COVID-19 infection, fluid overload status, bronchitis, asthma to name a few. EKG on arrival shows sinus rhythm with PVCs but otherwise no evidence of acute ischemia. Left show elevated creatinine at 3.7 and BUN of 37 which is baseline for patient. Magnesium slightly low at 2.5. Troponin within normal limits though BN peptide elevated at 2300. Chest x-ray shows bilateral vascular congestion without obvious effusion or infiltrate. Patient reports already feeling better after IV Lasix and is diuresing well. Rapid COVID-19 swab is negative. Per the patient's insurance provider will transfer to contracted hospital, [facility] , Dr. Buckley is the accepting physician. Patient stable for transport. 1633: Patient declined transfer to [facility] but has agreed to be transferred to [facility]. Dr. Daugherty is the accepting physician. Patient remained stable for transfer. Will arrange transport Laboratory Tests Test 06/14/20 14:10 White Blood Count 5.9 K/UL (4.8-10.8) Red Blood Count 4.45 M/UL (4.70-6.10) L Hemoglobin 11.1 G/DL (14.2-18.0) L Hematocrit 37.5 % (42.0-52.0) L Mean Corpuscular Volume 84 FL (80-99) Mean Corpuscular Hemoglobin 25.0 PG (27.0-31.0) L Mean Corpuscular Hemoglobin Concent 29.7 G/DL (32.0-36.0) L Red Cell Distribution Width 14.9 % (11.6-14.8) H Platelet Count 117 K/UL (150-450) L Mean Platelet Volume 10.2 FL (6.5-10.1) H Neutrophils (%) (Auto) 73.7 % (45.0-75.0) Lymphocytes (%) (Auto) 10.1 % (20.0-45.0) L Monocytes (%) (Auto) 8.6 % (1.0-10.0) Eosinophils (%) (Auto) 3.6 % (0.0-3.0) H Basophils (%) (Auto) 4.0 % (0.0-2.0) H Sodium Level 145 MMOL/L (136-145) Potassium Level 4.3 MMOL/L (3.5-5.1) Chloride Level 110 MMOL/L (98-107) H Carbon Dioxide Level 26 MMOL/L (21-32) Anion Gap 9 mmol/L (5-15) Blood Urea Nitrogen 37 mg/dL (7-18) H Creatinine 3.7 MG/DL (0.55-1.30) H Estimated Glomerular Filtration Rate 20.2 mL/min (>60) Glucose Level 110 MG/DL (74-106) H Calcium Level 8.6 MG/DL (8.5-10.1) Phosphorus Level 3.1 MG/DL (2.5-4.9) Magnesium Level 2.5 MG/DL (1.8-2.4) H Total Bilirubin 0.5 MG/DL (0.2-1.0) Aspartate Amino Transferase (AST) 31 U/L (15-37) Alanine Aminotransferase (ALT) 41 U/L (12-78) Alkaline Phosphatase 133 U/L (46-116) H Troponin I 0.012 ng/mL (0.000-0.056) Pro-B-Type Natriuretic Peptide 2379 pg/mL (0-125) H Total Protein 6.7 G/DL (6.4-8.2) Albumin 3.3 G/DL (3.4-5.0) L Globulin 3.4 g/dL Albumin/Globulin Ratio 1.0 (1.0-2.7) Microbiology Date/Time Source Procedure Growth Status 06/14/20 14:10 Nasopharynx SARS-CoV-2 RdRp Gene Assay - Final Complete EKG Diagnostic Results EKG Time: 13:53 Rate: normal Rhythm: NSR ST Segments: no acute changes Other Impression Sinus rhythm, normal axis, first-degree AV block with CA interval of 218 ms, nonspecific T wave flattening. Irregular baseline makes interpretation somewhat difficult Rhythm Strip Diag. Results Rhythm Strip Time: 13:53 EP Interpretation: yes Rate: 60s Rhythm: NSR Chest X-Ray Diagnostic Results Chest X-Ray Diagnostic Results : Chest X-Ray Ordered: Yes # of Views/Limited/Complete: 1 View Indication: Shortness of Breath EP Interpretation: Yes Interpretation: no consolidation, no effusion, no pneumothorax, other - Bilateral vascular congestion Impression: Other - Bilateral vascular congestion Electronically Signed by: Electronically signed by Dr. Jerod Paz Last Vital Signs Date Time Temp Pulse Resp B/P (MAP) Pulse Ox O2 Delivery O2 Flow Rate FiO2 06/14/20 13:56 97.9 62 12 181/78 (112) 97 Room Air Disposition: SHORT-TERM HOSP Condition: Serious Jerod Paz MD Jun 14, 2020 14:12
[2020-06-14 14:23] LABS: EOSINOPHILS % (AUTO) 3.6 % (0.0-3.0); HEMATOCRIT 37.5 % (42.0-52.0); HEMOGLOBIN 11.1 G/DL (14.2-18.0); LYMPHOCYTES % (AUTO) 10.1 % (20.0-45.0); MEAN CORPUSCULAR VOLUME 84 FL (80-99); MONOCYTES % (AUTO) 8.6 % (1.0-10.0); NEUTROPHILS % (AUTO) 73.7 % (45.0-75.0); PLATELET COUNT 117 K/UL (150-450); RED BLOOD COUNT 4.45 M/UL (4.70-6.10); RED CELL DISTRIBUTION WIDTH 14.9 % (11.6-14.8); WHITE BLOOD COUNT 5.9 K/UL (4.8-10.8)
[2020-06-14 14:33] LABS: ANION GAP 9 mmol/L (5-15); BLOOD UREA NITROGEN 37 mg/dL (7-18); CALCIUM 8.6 MG/DL (8.5-10.1); CARBON DIOXIDE 26 MMOL/L (21-32); CHLORIDE 110 MMOL/L (98-107); CREATININE 3.7 MG/DL (0.55-1.30); POTASSIUM 4.3 MMOL/L (3.5-5.1); SODIUM 145 MMOL/L (136-145)
[2020-06-14 14:44] LABS: ALANINE AMINOTRANSFERASE 41 U/L (12-78); ALBUMIN 3.3 G/DL (3.4-5.0); ALKALINE PHOSPHATASE 133 U/L (46-116); ASPARTATE AMINO TRANSFERASE 31 U/L (15-37); BILIRUBIN,TOTAL 0.5 MG/DL (0.2-1.0)
[2020-06-14 14:55] LABS: PHOSPHORUS 3.1 MG/DL (2.5-4.9)
--- NOTE | 2020-06-14 15:23 | Diagnostic Imaging Report ---
Indication: Shortness of breath Technique: One view of the chest Comparison: 01/26/2019 Findings: The heart is mildly enlarged. Bilateral infiltrates versus edema demonstrated. The pleural spaces are clear. Impression: Cardiomegaly Bilateral infiltrates versus edema. Correlate with clinical findings
[2020-06-14 16:00] VITALS: BP 181/88
--- NOTE | 2020-06-14 16:40 | NUR ---
ED Nurse Note: pt sitting at the edge of bed and speaking on the phone. no distress noted at this time.
--- NOTE | 2020-06-14 16:48 | NUR ---
ED Nurse Note: pt singed on transfer paper with fully understanding.
--- NOTE | 2020-06-14 16:51 | NUR ---
ED Nurse Note: report given to ZENIA Cardoza at [facility].
[2020-06-14 18:00] VITALS: BP 168/79
[2020-06-14 19:03] VITALS: BP 180/90
--- NOTE | 2020-06-14 19:03 | NUR ---
ED Nurse Note: transporation arrived.
--- NOTE | 2020-06-14 19:05 | NUR ---
ED Nurse Note: pt left the facility with 2 director of enrollment in stable condition.
== END 2020-06-14 19:10 | disposition short-term general hospital (02) ==
LOC: EDBEDREQ 14:10 → EMR 14:46
DX: I13.0 Hypertensive heart and chronic kidney disease with heart failure and stage 1 through stage 4 chronic kidney disease, or unspecified chronic kidney disease (principal); E11.22 Type 2 diabetes mellitus with diabetic chronic kidney disease; N18.9 Chronic kidney disease, unspecified; I50.9 Heart failure, unspecified; Z96.659 Presence of unspecified artificial knee joint; R60.0 Localized edema; E83.42 Hypomagnesemia
CPT/HCPCS: 36415; 71045; 80053; 83735; 83880; 84100; 84484; 85025; 93005; 96365; 96375; 99291; J1940; U0002